=== PATIENT | male | born 1955 | race Caucasian/White ===

== ENCOUNTER 2020-08-20 15:39 | Emergency (ER) | payer MEDICARE, SELFPAY ==
[2020-08-20 15:50] VITALS: BP 113/63; PULSE 95; RESP 20; TEMP 37; O2SAT 97
--- NOTE | 2020-08-20 16:12 | ECG_ITS ---
Measurements Intervals [place] Rate: 90 P: 38 VA: 135 QRS: 38 QRSD: 89 T: 52 QT: 340 QTc: 416 Interpretive Statements SINUS RHYTHM BASELINE ARTIFACT- II, III, AVF, V2, V4-V6 NORMAL ECG Electronically Signed On 08-20-2020 19:30:42 CDT by Alberto Rosado D.O.
--- NOTE | 2020-08-20 16:17 | ED.GENADULT ---
HPI - General Adult General Chief complaint: Unspecified Stated complaint: groin pain/dizzy Time Seen by Provider: 08/20/20 16:02 Source: patient and RN notes reviewed Mode of arrival: ambulatory Limitations: no limitations History of Present Illness HPI narrative: Patient presents today complaining of a 1 week history of intermittent dizziness episodes. These episodes include blurred vision and heart palpitations. Last episode was this morning and lasted for approximately 2 hours. During these episodes patient denies chest pain, shortness of breath, abdominal pain, nausea or vomiting, numbness or tingling in the extremities. He is currently symptom-free. Denies any alleviating or exacerbating factors. He has tried no interventions at home prior to arrival. History of hypertension and diabetes. Denies any history of HI, CVA. He is also complaining of a 2-month history of left groin pain that is described as a dull ache as well as constant. Believes he may have a hernia. He has not been able to have it evaluated by his PCP. MD complaint: Dizziness Related Data Home Medications Medication Instructions Recorded Confirmed atorvastatin 20 mg DAILY 10/28/19 08/20/20 metformin 500 mg PO BID 10/28/19 08/20/20 quinapril 20 mg DAILY 10/28/19 08/20/20 Allergies Allergy/AdvReac Type Severity Reaction Status Date / Time Penicillins Allergy Unknown UNKNOWN Verified 08/20/20 15:58 Bumble Bee Allergy Unknown SWELL UP Uncoded 06/10/19 19:56 Review of Systems Review of Systems: Narrative: CONSTITUTIONAL: Denies body aches, fever, chills, or sweats. EYES: Denies redness, or discharge.+ Blurred vision ENT: Denies rhinorrhea, congestion, sore throat, or otalgia. CARDIOVASCULAR: Denies chest pain, or edema.+ Palpitations RESPIRATORY: Denies cough or dyspnea. GASTROINTESTINAL: Denies abdominal pain, nausea, vomiting, or diarrhea. GENITOURINARY: Denies dysuria or hematuria. SKIN: Denies rash, itching, or wounds. MUSCULOSKELETAL: Denies back pain, joint pain, or myalgia.+ Groin pain NEUROLOGIC: Denies headache, numbness, tingling, or weakness.+ Dizziness PSYCH: Denies depression or anxiety. [facility] Past Medical History Medical History (Updated 08/20/20 @ 16:32 by Edda Cullen, LEELEE, ) Diabetes Hyperlipidemia Hypertension Social History Social History Gender identity (if verbalized by the patient): Male Comments At time of signature, I have reviewed and agree with nursing past medical, surgical, social and family history unless otherwise noted. Please see nursing chart for further information. There is no relevant family history pertinent to the presenting complaint Exam Narrative: Exam Narrative: GENERAL: Well-appearing, well-nourished, and in no acute distress. HEAD: Normocephalic, atraumatic. EYES: EOMI. PERRL. No nystagmus. No redness or drainage. Conjunctivae normal. ENT: Mucous membranes pink and moist. NECK: Normal AROM. Supple. CHEST: No respiratory distress. Clear to auscultation. HEART: Regular rate. No murmur appreciated. Normal peripheral pulses. ABDOMEN: Soft, nontender, nondistended, normal active bowel sounds. MUSCULOSKELETAL: No bony tenderness. EXTREMITIES: Normal range of motion. No edema. Left groin lymph node tenderness without swelling. SKIN: Warm, dry, no rash. Capillary refill normal. Normal skin turgor. Color normal. NEURO: No focal deficits. Alert and oriented x3. Gait steady. Foot push and pulls equal and strong. Hand industrial energy engineer equal and strong. PSYCH: Normal affect. No signs of depression or anxiety. Course Vital Signs Vital signs: Vital Signs Temperature 98.6 F 08/20/20 15:50 Pulse Rate 95 08/20/20 15:50 Respiratory Rate 20 08/20/20 15:50 Blood Pressure 113/63 08/20/20 15:50 Pulse Oximetry 97 08/20/20 15:50 Temperature 98.6 F 08/20/20 15:50 Pulse Rate 95 08/20/20 15:50 Respiratory Rate 20 1
== END 2020-08-20 16:31 | disposition short-term general hospital (02) ==
PROVIDERS: Emergency Provider Nurse Practitioner; PCP Family Medicine
DX: R42 Dizziness and giddiness (principal); I49.3 Ventricular premature depolarization; E11.9 Type 2 diabetes mellitus without complications; E78.5 Hyperlipidemia, unspecified; I10 Essential (primary) hypertension
CPT/HCPCS: 93005; 99213; G0463

== ENCOUNTER 2020-08-20 17:00 | Emergency (ER) | payer MEDICARE, SELFPAY ==
--- NOTE | ~2020-08-20 | CT_ITS ---
EXAMINATION: CT abdomen pelvis w con EXAM DATE: 08/20/2020 18:39 INDICATION: LLQ/inguinal pain . TECHNIQUE: Spiral CT of the abdomen and pelvis was performed following intravenous injection of 100 m L Omnipaque 350. Axial, coronal and sagittal images were reviewed. The dose-length product (DLP) fo r this examination was 543.48 mGy-cm. The exposure was tailored according to patient size (auto mA e xposure control), and iterative reconstruction (ASIR) was used as additional dose reduction technique . Comparison is made to prior examination from 06/10/2019. FINDINGS: There is 2.3 cm right liver lobe cyst, several other smaller cysts. Flash filling subcentim eter hemangioma at the liver dome. There is a 1.7 cm thrombosed or nearly thrombosed aneurysm at the chrissy hepatis, probably of the common hepatic artery. The spleen, adrenal glands and pancreas are oth erwise unremarkable. Gallbladder is unremarkable. No biliary obstruction. Portal and splenic veins are patent. Kidneys enhance symmetrically. There is no hydronephrosis. There is a 7 mm stone in le ft inferior calyces, 2 mm right superior calyceal stone. The prostate is unremarkable. Small left in guinal fat-containing hernia. The bladder is unremarkable. There is no retroperitoneal or pelvic ly mphadenopathy. There is mild scattered arteriosclerotic disease. The appendix is normal. There is mild to moderate scattered colonic diverticulosis. There is no kalpesh cent inflammatory change to suggest diverticulitis. The stomach and small bowel are unremarkable. Th ere is expected amount of colonic stool. No free intraperitoneal gas. The heart is normal in size . There are no pericardial or pleural effusions. The lung bases are unremarkable. There are no ost eoblastic or osteolytic lesions identified. IMPRESSION: 1. No acute intra-abdominal findings. 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 3. Scattered colonic diverticulosis. 4. Small left inguinal hernia. Reviewed, dictated and finalized at location A.
--- NOTE | 2020-08-20 17:02 | ECG_ITS ---
Measurements Intervals [place] Rate: 91 P: 44 [place]: 141 QRS: 52 QRSD: 85 T: 52 QT: 337 QTc: 415 Interpretive Statements SINUS RHYTHM FREQUENT VENTRICULAR PREMATURE COMPLEXES ABNORMAL ECG Electronically Signed On 08-21-2020 8:29:31 CDT by Alberto Rosado D.O.
[2020-08-20 17:04] VITALS: BP 137/79; PULSE 91; RESP 19; TEMP 36.8; O2SAT 96
--- NOTE | 2020-08-20 17:21 | ED.DIZZY ---
HPI - Dizziness General Chief Complaint: Dizziness Stated Complaint: DIZZINESS, PALPITATIONS Time Seen by Provider: 08/20/20 17:04 History of Present Illness HPI Narrative: Patient is a 65-year-old male who presents ER with complaint of dizziness. Reports it happens intermittently. Last about 30 minutes. Will feel unsteady. Happens when turning his head to the right or with positional changes. No sinus congestion or ringing in the ear. No focal weakness or numbness in arm or leg. Denies chest pain/shortness of breath. Has not found any alleviating factors other than just rest. He reports he was originally being seen at an urgent care for left inguinal pain which has been ongoing. Associate with some testicular discomfort. Worse when he bears down to urinate or stool. No deformity that he is noted. Related Data Home Medications Medication Instructions Recorded Confirmed atorvastatin 20 mg DAILY 10/28/19 08/20/20 metformin 500 mg PO BID 10/28/19 08/20/20 quinapril 20 mg DAILY 10/28/19 08/20/20 Allergies Allergy/AdvReac Type Severity Reaction Status Date / Time Penicillins Allergy Unknown UNKNOWN Verified 08/20/20 15:58 Bumble Bee Allergy Unknown SWELL UP Uncoded 06/10/19 19:56 Review of Systems Review of Systems: All systems reviewed & are unremarkable except as noted in HPI and below Constitutional: Constitutional: Denies chills, Denies fever(s) and Denies weakness ENT: Reports dizziness, Denies nasal congestion and Denies sore throat Cardiovascular: Cardiovascular: Denies chest pain and Denies radiating jaw, neck or arm pain Gastrointestinal: Gastrointestinal: Denies abdominal pain, Denies diarrhea, Denies nausea and Denies vomiting Comments: Left inguinal discomfort Genitourinary: Genitourinary: Denies dysuria, Reports testicular pain and Denies urinary frequency Neurologic: Denies focal weakness and Denies numbness PMFSH Past Medical History Medical History (Updated 08/20/20 @ 19:27 by Toñito Sow MD) Diabetes Hyperlipidemia Hypertension Social History Social History Gender identity (if verbalized by the patient): Male Exam Narrative: Exam Narrative: GENERAL: Well-appearing, well-nourished, and in no acute distress. HEAD: Normocephalic, atraumatic. EYES: PERRL and EOMI. ENT: TMs normal bilaterally. CHEST: Clear to auscultation. No respiratory distress. HEART: Regular rate and rhythm. Normal peripheral pulses. ABDOMEN: Soft, mild left lower quadrant tenderness without guarding, nondistended, mild left inguinal tenderness.. EXTREMITIES: Normal range of motion. No edema. SKIN: Warm, dry, no rash. NEURO: Alert and oriented x3. Course Course Emergency Course: Patient informed of results. No dizziness was here. Did receive meclizine. Discussed elevation in white blood cell count. Recommend follow-up with PCP for further evaluation. Patient does have increased number of lymphocytes this could be specialty sales representative of developing CLL. Also may just be incidental. Patient verbalized understanding. Discussed return precautions. Vital Signs Vital signs: Vital Signs Temperature 98.2 F 08/20/20 17:04 Pulse Rate 91 08/20/20 17:04 Respiratory Rate 19 08/20/20 17:04 Blood Pressure 137/79 08/20/20 17:04 Pulse Oximetry 96 08/20/20 17:04 Temperature 98.2 F 08/20/20 17:04 Pulse Rate 85 08/20/20 18:47 Respiratory Rate 17 08/20/20 18:47 Blood Pressure 116/75 08/20/20 18:47 Pulse Oximetry 96 08/20/20 18:47 MDM - Dizziness Lab Data Result diagrams: 08/20/20 17:22 08/20/20 17:22 Labs: Lab Results 08/20/20 08/20/20 08/20/20 Range/Units 17:22 17:22 17:52 WBC 17.1 H (4.5-10.0) K/mm3 RBC 4.28 L (4.6-6.20) M/mm3 Hgb 13.7 L (14.0-18.0) g/dL Hct 39.5 L (42.0-52.0) % MCV 92.3 (80-100) fl MCH 32.0 (26-34) pg MCHC 34.7 (32-36) g/dl RD
[2020-08-20 17:27] LABS: Hematocrit 39.5 % (42.0-52.0); Hemoglobin 13.7 g/dL (14.0-18.0); Mean Corpuscular HGB Conc 34.7 g/dl (32-36); Mean Corpuscular Volume 92.3 fl (80-100); Mean Platelet Volume 9.5 fl (7.4-10.4); Platelet Count Result 243 k/mm3 (150-375); Red Blood Count 4.28 M/mm3 (4.6-6.20); Red Cell Distribution Width 14.3 % (11.5-14.5); White Blood Count 17.1 K/mm3 (4.5-10.0)
[2020-08-20 17:29] VITALS: BP 115/70; BP 128/74; PULSE 84; PULSE 91
[2020-08-20] MEDS: MECLIZINE HCL 25 MG TABLET PO (17:29)
[2020-08-20 17:30] VITALS: BP 105/58; PULSE 93
[2020-08-20 17:40] LABS: Anion Gap 8 mmol/L (8-16); Blood Urea Nitrogen 27 mg/dL (9-20); Calcium 8.6 mg/dL (8.4-10.2); Carbon Dioxide 22 mmol/L (22-30); Chloride 104 mmol/L (98-107); Estimated CRCL calculation 47 ml/min; Estimated Glomerular Filt Rate 47; Glucose 100 mg/dL (75-110); Potassium 4.6 mmol/L (3.4-5.0); Sodium 134 mmol/L (137-145)
[2020-08-20 17:45] VITALS: BP 108/75; PULSE 87; RESP 15; O2SAT 99
[2020-08-20 17:54] LABS: Band Neutrophils Percent 6 % (0-6); Lymphocytes Absolute Manual 6.49 K/mm3 (1.1-4.5); Monocytes Absolute Manual 0.34 K/mm3 (0.1-0.90); Monocytes Percent Manual 2 % (3-9); Neutrophils Absolute Manual 10.26 K/mm3 (1.3-6.7); Neutrophils Percent Manual 54 % (46-73); Platelet Estimate Adequate (Adequate); Total Cells Counted 100
[2020-08-20 18:01] LABS: Add Urine Microscopic? YES; Appearance Urine Clear (Clear); Bilirubin Urine Negative (Negative); Blood Urine 2+ (Negative); Color Urine Yellow (Yellow); Glucose Urine UA Negative (Negative); Ketones Urine Negative (Negative); Leukocyte Esterase Ur Negative LEU/UL (Negative); Mucus Urine Few /lpf; Nitrate Urine Negative (Negative); Protein Urine Negative (Negative); Specific Grav Ur 1.024 (1.001-1.035); Urobilinogen Urine Negative mg/dL (<2.0); WBC Urine 0-3 /hpf
[2020-08-20 18:47] VITALS: BP 116/75; PULSE 85; RESP 17; O2SAT 96
--- NOTE | 2020-08-20 19:06 | PC.NURSE ---
REPORT TO FIONA KLEIN AT THIS TIME, HE HAS ASSUMED PT CARE.
[2020-08-20 19:23] VITALS: BP 134/84; PULSE 83; RESP 18; O2SAT 96
== END 2020-08-20 19:39 | disposition home or self-care (01) ==
PROVIDERS: Emergency Provider Emergency Medicine; PCP Family Medicine
DX: H81.10 Benign paroxysmal vertigo, unspecified ear (principal); K40.90 Unilateral inguinal hernia, without obstruction or gangrene, not specified as recurrent; D72.829 Elevated white blood cell count, unspecified; E11.9 Type 2 diabetes mellitus without complications; E78.5 Hyperlipidemia, unspecified; I10 Essential (primary) hypertension; K57.90 Diverticulosis of intestine, part unspecified, without perforation or abscess without bleeding; I49.3 Ventricular premature depolarization; I72.8 Aneurysm of other specified arteries
CPT/HCPCS: 36415; 74177; 80048; 81001; 85025; 93005; 99284; A9270; Q9967

== ENCOUNTER 2020-09-12 11:03 | Outpatient (CLI) | payer MEDICARE, SELFPAY ==
--- NOTE | ~2020-09-12 | XR_ITS ---
XR abdomen/kub 1V DATE: 09/12/2020 11:27 INDICATION: Calcium kidney stone TECHNIQUE: AP projection, 2 views COMPARISON: 08/20/2020 CT abdomen pelvis FINDINGS: An approximately 4 x 7 mm calcified calculus of lower pole of left kidney is again noted. Pinpoint nonobstructing mid to upper right renal calculus noted on 08/20/2020 CT chest abdomen pelvis examination is not readily evident radiographically. No visceromegaly is evident. The psoas shadows are intact. The bowel gas pattern is unremarkable, wit hout evidence of obstruction. IMPRESSION: Left lower pole nephrolithiasis, stable since Probable radiographically occult right renal calculus Reviewed, dictated and finalized at Location A. Reviewed, dictated and finalized at location A. [employer]
== END 2020-09-12 11:04 | disposition home or self-care (01) ==
LOC: ANHIMG 11:08
PROVIDERS: PCP Family Medicine; Visit Provider Urology
DX: N20.0 Calculus of kidney (principal)
CPT/HCPCS: 74018

== ENCOUNTER 2020-09-20 11:23 | Outpatient (CLI) | payer MEDICARE, SELFPAY | END 2020-09-20 11:24 | disposition home or self-care (01) | PROVIDERS: PCP Family Medicine; Visit Provider Surgery | DX: K40.90 Unilateral inguinal hernia, without obstruction or gangrene, not specified as recurrent (principal); Z01.818 Encounter for other preprocedural examination | CPT/HCPCS: 36415; 86850; 86900; 86901 ==

== ENCOUNTER 2020-09-28 01:35 | Outpatient (CLI) | payer MEDICARE, SELFPAY ==
[2020-09-28 21:25] LABS: SARS-CoV-2 RNA PCR Negative
== END 2020-09-28 01:36 | disposition home or self-care (01) ==
LOC: ANHCOVIDDT 01:35
PROVIDERS: PCP Family Medicine; Visit Provider Surgery
DX: Z01.812 Encounter for preprocedural laboratory examination (principal); Z20.828 Contact with and (suspected) exposure to other viral communicable diseases
CPT/HCPCS: 87635; C9803; U0003

== ENCOUNTER 2020-10-01 01:47 | Day surgery (SDC) | payer MEDICARE, SELFPAY ==
[2020-09-19 12:36] VITALS: BMI 27.6
[2020-10-01] VITALS (10 sets, daily range): BP systolic 112–119; BP diastolic 69–76; PULSE 71–87; RESP 12–18; TEMP 36.6; O2SAT 94–99; BMI 26.9
[2020-10-01] MEDS: LACTATED RINGERS 1,000 ML 30 ML IV CONT ×3 (06:47→10:59)
[2020-10-01] MEDS: KETOROLAC 15 MG/ML VIAL (*BKC) IV PUSH (06:48)
[2020-10-01] MEDS: ACETAMINOPHEN 500 MG TABLET 1000 MG PO (06:48)
--- NOTE | 2020-10-01 06:53 | WPDANESEPPF ---
Anes - Initial Pre Proc Eval Procedure: Operation Date: 10/01/20 07:30 Proposed Procedures p Robotic Assisted Left Inguinal Hernia Repair With Mesh - Shauna Martínez MD Date/Time: 10/01/20 06:53 Surgeon: Shauna Martínez MD Pre Op Diagnosis: Left Inguinal Hernia Patient Data Age: 65 Gender: M Height: 5 ft 7 in Weight: 78.1 kg Last Vital Signs Temp 36.6 C 10/01/20 06:34 Pulse 83 10/01/20 06:34 Resp 18 10/01/20 06:34 BP 112/71 10/01/20 06:34 Pulse Ox 98 10/01/20 06:34 Allergies Allergy/AdvReac Type Severity Reaction Status Date / Time Penicillins Allergy Unknown UNKNOWN Verified 10/01/20 06:17 Bumble Bee Allergy Unknown SWELL UP Uncoded 10/01/20 06:17 Home Medications Medication Instructions Recorded Confirmed Type atorvastatin 20 mg DAILY 10/28/19 10/01/20 History metformin 500 mg PO BID 10/28/19 10/01/20 History quinapril 20 mg DAILY 10/28/19 10/01/20 History icosapent ethyl [Vascepa] 1 g PO BID 09/19/20 10/01/20 History Laboratory Tests 10/01/20 06:46 WBC Pending Patient hx anesthesia problems: none Family hx anesthesia problems: none PMFSH Past Medical History Medical History Diabetes Hyperlipidemia Hypertension Surgical History Surgical History History of prostate surgery Family History Family History Father Diabetes mellitus Grandparent Diabetes mellitus Social History Social History Smoking status: Current every day smoker Tobacco type: cigars Additional smoking assessment comments: FOR 20 YEARS Alcohol intake: current Alcohol use details: 1 PER MONTH Living arrangements: with family Additional occupation/education comments: disabled Gender identity (if verbalized by the patient): Male Anes - Eval Final PreProcedure Day of Procedure 10/01/20 06:53 Patient weight: overweight Heart: regular rate and rhythm Lungs: decreased breath sounds Airway: Mallampati scale class II Neurological: alert and oriented Last oral intake: >/= 8 hours ASA classification: III Emergent: no Anesthetic plan: proceed Anesthesia type and monitoring: general ETT and standard monitoring Informed Consent: The patient's anesthetic plan and its attendant risks and benefits were discussed with the patient/family/POA. Questions were solicited and answers provided to the satisfaction of the patient/family/POA.
[2020-10-01 06:55] LABS: White Blood Count 7.4 K/mm3 (4.5-10.0)
[2020-10-01 07:00] LABS: Glucose Point of Care 104 (65-105)
--- NOTE | 2020-10-01 07:17 | WPDHPUPDATE1 ---
History and Physical Update Update Date/Time: 10/01/20 07:17 History and Physical has been reviewed, including an updated exam of the patient. There are NO changes in the patient's condition. Risks, benefits, and alternatives have been discussed and questions answered. Patient agrees to proceed with procedure.
[2020-10-01] MEDS: ceFAZolin 2 GM/D5W 50 ML 2 GM/50 ML BAG IVPB (07:25)
--- NOTE | 2020-10-01 09:27 | P.OP_ITS ---
Procedure Note - Detailed Date of procedure: 10/01/20 Pre-op diagnosis: Left Inguinal Hernia Post-op diagnosis: same Procedure performed: robotic assisted left inguinal hernia repair Description of procedure: Patient was brought into the operating room and placed in the supine position. After adequate induction of general anesthesia, the patient was prepped and draped in normal sterile fashion. A time-out was then done to verify the patient's identity, as well as the procedure being performed. Began by making a 8 mm incision in the supraumbilical region, a Veress needle was then placed into the peritoneal cavity. CO2 gas was then insufflated and after adequate pneumoperitoneum was achieved, the Veress needle was removed. I then placed an 8 mm trocar through this incision. I then placed the endoscope through this trocar site and under direct visualization placed 2 further 8 mm ports in the right and left mid abdomen. The [employer] robot was then docked to the 3 trocar sites. I then scrubbed out and went to the robotic console. Upon examining the pelvis, it was noted that the patient had a left inguinal hernia. I began by making a preperitoneal flap approximately 6 cm superior to the defect. This flap was carried medially past the umbilical ligaments in laterally to the transversalis. It then began dissection of my medial compartment taking this down to the pubic tubercle. I then began the lateral dissection taking this down to the transversalis fascia. Once these compartments were achieved, I began dissection around the cord structures. It was noted at this point that the patient had a indirect hernia. Patient also had a large lipoma the cord. Using careful dissection, was able to reduce the lipoma cord as well separate the indirect hernia off the cord structures. Once this was adequately done, I went ahead and placed a 15 x 10 piece of [employer] Receptionist mesh into the abdominal cavity. The mesh was carefully positioned, centering the center of the mesh over the indirect defect. Once this was done, I was very satisfied with our repair. I then closed the peritoneal flap with a running 2.0 V Lock suture. The abdomen was then desufflated, and all ports were removed. All incisions were then closed with the 4.0 monocryl suture. Dermabond was placed on each wound. The patient tolerated the procedure well, was extubated in the operating room postoperatively, and will now be transferred to the rec overy room in stable condition. Implants: 15 x 10 progrip mesh Anesthesia: GETA Surgeon: Shauna Martínez MD Estimated blood loss (mL): 5 Drains: No Packing: No Pathology: none sent Complications: No immediate complications Condition: stable Disposition: PACU Findings: indirect LIH
[2020-10-01] MEDS: fentaNYL CITRATE INJ (*CRX) 100 MCG/2 ML VIAL 25 MCG IV PUSH ×8 (09:32→09:46)
[2020-10-01] MEDS: HYDROmorphone HCL INJ (*CRX) 1 MG/ML SYR 0.5 MG IV PUSH ×6 (09:53→10:18)
--- NOTE | 2020-10-01 12:31 | SUR.PHASEII ---
1119 URINATED WITHOUT ISSUE.
== END 2020-10-01 11:53 | disposition home or self-care (01) ==
PROVIDERS: PCP Family Medicine; Visit Provider Surgery
PROC: 8E0Y4CZ Robotic Assisted Procedure of Lower Extremity, Percutaneous Endoscopic Approach (ICD-10-PCS; CPT 49650; principal; 2020-10-01 07:30)
DX: K40.90 Unilateral inguinal hernia, without obstruction or gangrene, not specified as recurrent (principal); I10 Essential (primary) hypertension; E11.9 Type 2 diabetes mellitus without complications; E78.5 Hyperlipidemia, unspecified; Z79.84 Long term (current) use of oral hypoglycemic drugs; F17.290 Nicotine dependence, other tobacco product, uncomplicated
CPT/HCPCS: 49650; S2900; 36415; 85048; 86850; 86900; 86901; 87635; A9270; C1781; C9803; J0690; J1100; J1170; J1885; J2250; J2370; J2405; J2704; J2710; J3010; J7030; J7120; U0003

== ENCOUNTER 2021-08-08 08:04 | Outpatient (CLI) | payer MEDICARE, SELFPAY ==
--- NOTE | 2021-08-08 08:41 | ECG_ITS ---
Measurements Intervals [place] Rate: 69 P: 36 [place]: 165 QRS: 45 QRSD: 93 T: 30 QT: 391 QTc: 420 Interpretive Statements SINUS RHYTHM NORMAL ECG Electronically Signed On 08-08-2021 9:05:03 CDT by Alberto Rosado D.O.
[2021-08-08 08:58] LABS: Anion Gap 6 mmol/L (8-16); Blood Urea Nitrogen 15 mg/dL (9-20); Calcium 8.7 mg/dL (8.4-10.2); Carbon Dioxide 27 mmol/L (22-30); Chloride 107 mmol/L (98-107); Estimated Glomerular Filt Rate > 60; Glucose 97 mg/dL (65-110); Potassium 4.4 mmol/L (3.4-5.0); Sodium 140 mmol/L (137-145)
== END 2021-08-08 08:05 | disposition home or self-care (01) ==
LOC: ANHLAB 08:16
PROVIDERS: PCP Family Medicine
DX: E11.9 Type 2 diabetes mellitus without complications (principal); I10 Essential (primary) hypertension
CPT/HCPCS: 36415; 80048; 93005

== ENCOUNTER 2022-07-30 10:44 | Outpatient (CLI) | payer MEDICARE, SELFPAY ==
--- NOTE | ~2022-07-30 | CT_ITS ---
EXAMINATION: CT abdomen pelvis wo con DATE: 07/30/2022 11:07 INDICATION: Lung bases are unremarkable. Heart size normal. TECHNIQUE: Computed tomography (CT) of the abdomen and pelvis was performed without intravenous contr ast. The dose-length product was 222.86 mGy-cm. Automated exposure control and iterative reconstructi on technique were employed. COMPARISON: CT dated 08/20/2020 FINDINGS: There is a focal radiopaque density in the proximal small bowel corresponding to abnormalit y seen on KUB. No evidence for right renal stone or gallstone. There is a 2.5 cm liver cyst posterior segment of the right hepatic lobe. The spleen, pancreas, adrenal glands are unremarkable. Right kidn ey within normal limits. There is a nonobstructing left renal stone measuring 8 x 5 mm. No ureteral s tones or hydronephrosis. Bowel gas pattern is nonobstructive. Mild osteoarthritis of the hips. Mild l umbar spondylosis. No significant vascular abnormality. No lymphadenopathy. No free air or free fluid . IMPRESSION: 1. Nonobstructing left nephrolithiasis. Reviewed, dictated and finalized at location B.
--- NOTE | ~2022-07-30 | XR_ITS ---
XR abdomen/kub 1V 07/30/2022 11:01 Indication: Right ureteral stone. Procedure: KUB Comparison: 09/12/2020 Findings: There is a stone in the lower pole of the left kidney. There is calcification overlying the right kidney which may represent a renal or gallstone. No definite stones identified in the expected course of the ureters. Bowel gas pattern nonobstructive. No acute osseous abnormality. Impression: 1: Left nephrolithiasis. Possible right nephrolithiasis measuring 1.7 cm versus cholelithiasis. Reviewed, dictated and finalized at location B. Impression: 1: Left nephrolithiasis. Possible right nephrolithiasis measuring 1.7 cm versus cholelithiasis.
== END 2022-07-30 10:45 | disposition home or self-care (01) ==
PROVIDERS: PCP Family Medicine; Visit Provider Urology
DX: N20.0 Calculus of kidney (principal); K76.89 Other specified diseases of liver; M47.816 Spondylosis without myelopathy or radiculopathy, lumbar region; M16.0 Bilateral primary osteoarthritis of hip
CPT/HCPCS: 74018; 74176

== ENCOUNTER 2022-08-07 07:53 | Outpatient (CLI) | payer MEDICARE, SELFPAY ==
--- NOTE | 2022-08-07 08:05 | ECG_ITS ---
Measurements Intervals [place] Rate: 78 P: 30 ID: 150 QRS: 24 QRSD: 94 T: 46 QT: 380 QTc: 434 Interpretive Statements SINUS RHYTHM WITH FREQUENT SUPRAVENTRICULAR PREMATURE COMPLEXES BASELINE ARTIFACT PRESENT ABNORMAL RHYTHM ECG COMPARED TO ECG 08/08/2021 08:49:32 NO SIGNIFICANT CHANGES Electronically Signed On 08-07-2022 17:21:50 CDT by Kelsie Arndt M.D.
[2022-08-07 08:39] LABS: Anion Gap 8 mmol/L (8-16); Blood Urea Nitrogen 16 mg/dL (9-20); Calcium 8.8 mg/dL (8.4-10.2); Carbon Dioxide 25 mmol/L (22-30); Chloride 101 mmol/L (98-107); Estimated Glomerular Filt Rate > 60; Glucose 123 mg/dL (65-110); Sodium 134 mmol/L (137-145)
[2022-08-07 08:46] LABS: INR 1.1; Prothrombin Time 13.4 Seconds (11.1-14.7)
[2022-08-07 08:49] LABS: Partial Thromboplastin Time 32.8 SECONDS (22.3-36.8)
== END 2022-08-07 07:54 | disposition home or self-care (01) ==
LOC: ANHSURGERY 07:57
PROVIDERS: Anesthesiology; PCP Family Medicine; Visit Provider Urology
DX: Z01.818 Encounter for other preprocedural examination (principal); N20.0 Calculus of kidney; E11.9 Type 2 diabetes mellitus without complications; I49.3 Ventricular premature depolarization; Z51.81 Encounter for therapeutic drug level monitoring; Z79.899 Other long term (current) drug therapy
CPT/HCPCS: 36415; 80048; 85610; 85730; 87086; 93005

== ENCOUNTER 2022-08-15 01:52 | Day surgery (SDC) | payer MEDICARE, SELFPAY ==
[2022-08-04 09:11] VITALS: BMI 26.1
--- NOTE | 2022-08-04 09:35 | PC.NURSE ---
Report to the Outpatient Waiting Room, entrance under the green pavilion located off [facility], at time __7:30AM on date _08/15/22 . OR Time: _9:30AM . Time changes happen often and if your time is changed the preop area will call you the afternoon before. - You and your visitor will be asked to self-screen and do not enter if you have any COVID symptoms. - Only one visitor and NO children visitors are allowed at this time. - The patient visitor is requested to leave or wait in car when not with patient due to restrictions. - A mask is required within the hospital. Patients may have clear liquids (water, carbonated beverages, clear teas, apple juice) until 3 hours prior to surgery with a maximum of 20 ounces. - No food from midnight until time of surgery Take the following medications with a SIP of water the morning of surgery: ____NONE Medications to discontinue per physician __HOLD ALL VITAMINS/SUPPLEMENTS 3 DAYS PRE-OP PER ANESTHESIA Date to take last dose___08/11/22 Please no make-up, nail sami, hairspray, perfume, deodorant, or body powder the day of surgery. No jewelry (including any body piercings) or valuables the day of surgery, leave them at home. Please take a shower or bath the night before, or the morning of, surgery with an antibacterial soap. Wear comfortable, loose fitting clothing. Children are encouraged to wear pajamas. - Jewelry must be removed prior to entering the operating room. Rings and piercings that are not removed may be cut off. - The hospital will not accept responsibility for valuables. - Please leave all valuables, including medications, at home the day of surgery. If you are going home after surgery, a licensed shag truck driver must drive you home. - NO public transportation without another adult. - We recommend that an adult stay with you for 24 hours following discharge. - We also recommend that you do not drive, make important decision, drink alcoholic beverages, or take any drugs that were not prescribed by your health care provider for at least 24 hours after your discharge time. Follow any additional instructions given to you from your surgeon. If you or anyone in your household have experienced Covid symptoms in the past week, please notify your surgeon or the nurse liaison at the phone number below for possible testing. Telephone instructions given to ___PATIENT and asked if any additional questions and then verbalized understanding. Patient advised to call surgeon office or pre surgery nurse liaison [phone] if any additional questions.
[2022-08-15] VITALS (7 sets, daily range): BP systolic 119–149; BP diastolic 57–100; PULSE 73–107; RESP 14–20; TEMP 36.5–36.7; O2SAT 96–100
--- NOTE | ~2022-08-15 | XR_ITS ---
EXAMINATION: XR abdomen/kub 1V DATE: 08/15/2022 07:51 INDICATION: Left kidney stone. TECHNIQUE: A supine view of the abdomen on 2 radiographs was obtained. COMPARISON: CT abdomen and pelvis 07/30/2022 FINDINGS: There are no dilated loops of bowel. There is an 8 mm stone in left kidney. IMPRESSION: 1. Left kidney stone. Reviewed, dictated and finalized at location A. IMPRESSION: 1. Left kidney stone.
--- NOTE | 2022-08-15 08:06 | SUR.PREOP ---
Patient arrived wearing sling shot arm immobilizer on left. Says rotator cuff surgery was 6 weeks ago.
--- NOTE | 2022-08-15 08:14 | WPDHPUPDATE1 ---
History and Physical Update Update Date/Time: 08/15/22 08:14 History and Physical has been reviewed, including an updated exam of the patient. There are NO changes in the patient's condition. Risks, benefits, and alternatives have been discussed and questions answered. Patient agrees to proceed with procedure. Proceed with left renal ESWL
[2022-08-15] MEDS: LACTATED RINGERS 1,000 ML 30 ML IV CONT (08:37)
--- NOTE | 2022-08-15 08:38 | WPDANESEPPF ---
Anes - Initial Pre Proc Eval Procedure: Operation Date: 08/15/22 09:30 Proposed Procedures p Left Extracorporeal Shock Wave Lithotripsy - Guille Quiñones MD Date/Time: 08/15/22 08:38 Surgeon: Guille Quiñones MD Pre Op Diagnosis: left renal stones Patient Data Age: 67 Gender: M Height: 1.73 m Weight: 77.9 kg Last Vital Signs Temp 36.5 C 08/15/22 08:05 Pulse 73 08/15/22 08:05 Resp 16 08/15/22 08:05 BP 119/72 08/15/22 08:05 Pulse Ox 96 08/15/22 08:05 O2 Del Method Room Air 08/15/22 08:05 Allergies Allergy/AdvReac Type Severity Reaction Status Date / Time Penicillins Allergy Unknown UNKNOWN Verified 08/15/22 07:57 Home Medications Medication Instructions Recorded Confirmed Type atorvastatin 20 mg tablet 20 mg PO DAILY 10/28/19 08/15/22 History quinapril 20 mg tablet 20 mg PO DAILY 10/28/19 08/15/22 History multivitamin 1 tablet PO DAILY 08/04/22 08/15/22 History omega-3 fatty acids-vitamin E 1 cap PO BID 08/04/22 08/15/22 History 1,000 mg capsule Patient hx anesthesia problems: none Family hx anesthesia problems: none Results Review: All pre-operative results and documents have been reviewed as part of the pre-operative evaluation. [facility] Past Medical History Medical History Diabetes Hyperlipidemia Hypertension Seizure disorder Surgical History Surgical History History of inguinal hernia repair 10/01/20 robotic assisted left inguinal hernia repair with progrip mesh History of prostate surgery Family History Family History Father Diabetes mellitus Grandparent Diabetes mellitus Social History Social History Smoking status: Current every day smoker Tobacco type: cigars Additional smoking assessment comments: FOR 20 YEARS Alcohol intake: current Alcohol use details: 1 PER MONTH Substance use: never Living arrangements: with family Additional living arrangements comments: DAUGHTER Additional occupation/education comments: disabled Gender identity (if verbalized by the patient): Male Spiritual care concerns: No Anes - Eval Final PreProcedure Day of Procedure 08/15/22 08:38 Patient weight: overweight Heart: regular rate and rhythm Lungs: decreased breath sounds Airway: Mallampati scale class II Neurological: alert and oriented Last oral intake: >/= 8 hours ASA classification: III Emergent: no Anesthetic plan: proceed Anesthesia type and monitoring: general LMA and standard monitoring Results Review: All pre-operative results and documents have been reviewed as part of the pre-operative evaluation. Informed Consent: The patient's anesthetic plan and its attendant risks and benefits were discussed with the patient/family/POA. Questions were solicited and answers provided to the satisfaction of the patient/family/POA.
[2022-08-15] MEDS: ceFAZolin 2 GM/D5W 50 ML 2 GM/50 ML BAG IVPB (09:36)
--- NOTE | 2022-08-15 10:29 | W.PM.PROC2 ---
Procedure Note - Detailed Date of Procedure 08/15/22 Pre-op Diagnosis left renal stone Post-op Diagnosis Same Procedure Performed ESWL left renal calculus Surgeon Guille Quiñones MD Anesthesia General Description of Procedure Patient is taken the operative suite correctly identified. Once anesthesia was obtained was placed in supine position the stone was localized in both planes. It was noted that the patient had a little bit of a rib me a with the initiation of lithotripsy. We thus gated him. We gave 2500 shocks and tolerated procedure well without complications. There appeared to be good fragmentation stone. Patient is taken recovery stable condition. He will follow-up in 7-10 days with KUB. Drains No Packing No Pathology None sent Complications No immediate complications Condition Stable Disposition PACU
== END 2022-08-15 11:37 | disposition home or self-care (01) ==
PROVIDERS: PCP Family Medicine; Visit Provider Urology
PROC: (CPT 50590; principal; 2022-08-15 09:30)
DX: N20.0 Calculus of kidney (principal); E11.9 Type 2 diabetes mellitus without complications; E78.5 Hyperlipidemia, unspecified; I10 Essential (primary) hypertension; G40.909 Epilepsy, unspecified, not intractable, without status epilepticus; F17.290 Nicotine dependence, other tobacco product, uncomplicated
CPT/HCPCS: 50590; 36415; 74018; 80048; 85610; 85730; 87086; 93005; J0690; J1100; J2405; J2704; J3010; J7120

== ENCOUNTER 2022-08-16 08:46 | Emergency (ER) | payer MEDICARE, SELFPAY ==
[2022-08-16] VITALS (10 sets, daily range): BP systolic 136–177; BP diastolic 79–95; PULSE 74–88; RESP 18; TEMP 36.7; O2SAT 93–98
--- NOTE | ~2022-08-16 | CT_ITS ---
EXAMINATION: CT abdomen pelvis wo con DATE: 08/16/2022 09:55 INDICATION: Left lower quadrant abdominal pain. TECHNIQUE: Computed tomography (CT) of the abdomen and pelvis was performed without intravenous contr ast. Automated exposure control and iterative reconstruction technique were employed. The dose-length product was 312.25 mGy-cm. COMPARISON: CT abdomen and pelvis 07/30/22 FINDINGS: The visualized portions of the lung bases demonstrate mild atelectasis. No pleural effusion . The heart size is normal. There are coronary artery calcifications. No pericardial effusion. There is a 2.7 cm cyst in the liver. The gallbladder, spleen, pancreas, adrenal glands, and right kidney ar e normal. There is left perinephric fat stranding. There are approximately 6 stones in left kidney me asuring up to 4 mm. There is mild left hydronephrosis and hydroureter. There is a 3 mm stone in dista l left ureter. There is diverticulosis of the colon without evidence of diverticulitis. The appendix is normal. There are no dilated loops of bowel. There are no pathologically enlarged lymph nodes. The re is no free intraperitoneal fluid. There is mild thoracolumbar spondylosis. IMPRESSION: 1. 3 mm stone in distal left ureter with mild left hydronephrosis and hydroureter. 2. Nonobstructing left kidney stones. Reviewed, dictated and finalized at location A. IMPRESSION: 1. 3 mm stone in distal left ureter with mild left hydronephrosis and hydrouret er. 2. Nonobstructing left kidney stones.
--- NOTE | 2022-08-16 09:15 | ED.GENADULT ---
HPI - General Adult General Chief complaint: Urogenital-Male Stated complaint: post on complications Time Seen by Provider: 08/16/22 08:48 History of Present Illness HPI narrative: 67-year-old male with history of diabetes, hypertension, ureteral calculi presenting the emergency department for evaluation of worsening left lower quadrant pain. Patient had lithotripsy done on 08/[address] Quiñones and states that he had been improving but had worsening pain this morning. Patient describes intense left lower quadrant pain with associated nausea and vomiting. Patient did take some Zofran and Tylenol for pain control but states at this point his pain is uncontrolled. Patient denies any associated fevers. The procedure note prefers to lithotripsy with 2500 shocks and that the patient tolerated the procedure well without complications. There appeared to be good fragmentation of the stone. Follow up in was scheduled for 7 to 10 days. Related Data Home Medications Medication Instructions Recorded Confirmed atorvastatin 20 mg tablet 20 mg PO DAILY 10/28/19 08/15/22 quinapril 20 mg tablet 20 mg PO DAILY 10/28/19 08/15/22 multivitamin 1 tablet PO DAILY 08/04/22 08/15/22 omega-3 fatty acids-vitamin E 1 cap PO BID 08/04/22 08/15/22 1,000 mg capsule Allergies Allergy/AdvReac Type Severity Reaction Status Date / Time Penicillins Allergy Unknown UNKNOWN Verified 08/16/22 09:36 Review of Systems Review of Systems: CONSTITUTIONAL: Denies fever, chills, or sweats. EYES: Denies visual changes, redness, or discharge. ENT: Denies rhinorrhea, congestion, sore throat, or otalgia. CARDIOVASCULAR: Denies chest pain, palpitations, or edema. RESPIRATORY: Denies cough or dyspnea. GASTROINTESTINAL: Left lower quadrant pain GENITOURINARY: Denies dysuria or hematuria. SKIN: Denies rash or itching. MUSCULOSKELETAL: Denies back pain, joint pain, or myalgia. NEUROLOGIC: Denies headache, numbness, or weakness. [facility] Past Medical History Medical History Diabetes Hyperlipidemia Hypertension Seizure disorder Surgical History Surgical History History of inguinal hernia repair 10/01/20 robotic assisted left inguinal hernia repair with progrip mesh History of prostate surgery Family History Family History Father Diabetes mellitus Grandparent Diabetes mellitus Social History Social History Smoking status: Current every day smoker Tobacco type: cigars Additional smoking assessment comments: 1 CIGAR/DAY CURRENTLY Alcohol intake: current Alcohol use details: 1 PER MONTH Substance use: never Additional living arrangements comments: DAUGHTER Additional occupation/education comments: disabled Gender identity (if verbalized by the patient): Male Spiritual care concerns: No Exam Narrative: APPEARANCE: Well appearing, no pain, no distress, well-nourished. HEAD: normocephalic, atraumatic. EYES: PERRLA/EOMI, conjunctivae clear. NOSE: Normal no drainage NECK: Supple. No adenopathy, no masses. RESPIRATORY: Airway patent, respirations nonlabored. Clear to auscultation bilaterally, no rales, rhonchi, wheezing. CARDIOVASCULAR: Regular rate and rhythm without murmurs rubs or gallops. ABDOMINAL: Left lower quadrant tenderness to palpation MUSCULOSKELETAL: Moves all extremities. Strength/ROM intact, No edema, No calf tenderness. NEURO: Alert. Cranial nerves II through XII intact. Grossly intact Course Course Emergency Course: Patient does have a leukocytosis of 22. Patient is afebrile. UA shows no significant evidence of infection. Patient is not currently taking any steroids. Case was discussed with Dr. Quiñones and he was comfortable with the plan for discharge to home with antibiotics and Flomax
[2022-08-16] MEDS: HYDROmorphone HCL INJ (*CRX) 1 MG/ML SYR 0.5 MG IV PUSH (09:27)
[2022-08-16] MEDS: ONDANSETRON INJ 4 MG/2 ML VIAL IV PUSH (09:28)
[2022-08-16 09:36] LABS: Basophils Absolute Auto 0.1 K/mm3 (0.0-0.1); Basophils Percent Auto 0.4 % (0.2-1.2); Eosinophils Absolute Auto 0.2 K/mm3 (0-0.3); Eosinophils Percent Auto 0.8 % (0-4.4); Hematocrit 38.9 % (42.0-52.0); Hemoglobin 12.9 g/dL (14.0-18.0); Immature Granulocyte Absolute 0.26 K/mm3 (0.00-0.031); Immature Granulocyte Percent A 1.1 % (0-0.5); Lymphocytes Absolute Auto 1.58 K/mm3 (0.9-3.2); Lymphocytes Percent Auto 6.9 % (18.3-44.2); Mean Corpuscular HGB Conc 33.2 g/dl (32-36); Mean Corpuscular Hemoglobin 31.3 pg (26-34); Mean Corpuscular Volume 94.4 fl (80-100); Mean Platelet Volume 8.8 fl (7.4-10.4); Monocytes Absolute Auto 1.5 K/mm3 (0.1-0.6); Monocytes Percent Auto 6.6 % (2.6-8.5); Neutrophils Absolute Auto 19.2 K/mm3 (1.3-6.7); Neutrophils Percent Auto 84.2 % (45.5-73.1); Platelet Count Result 406 k/mm3 (150-375); Red Blood Count 4.12 M/mm3 (4.6-6.20); Red Cell Distribution Width 12.8 % (11.5-14.5); White Blood Count 22.8 K/mm3 (4.5-10.0)
[2022-08-16 09:47] LABS: Alanine Aminotransferase 20 U/L (6-50); Albumin Level 4.2 g/dL (3.5-5.1); Alkaline Phosphatase 70 U/L (38-126); Anion Gap 9 mmol/L (8-16); Aspartate Amino Transferase 26 U/L (17-59); Bilirubin,Total 0.2 mg/dL (0.2-1.3); Blood Urea Nitrogen 20 mg/dL (9-20); Calcium 8.8 mg/dL (8.4-10.2); Carbon Dioxide 24 mmol/L (22-30); Chloride 103 mmol/L (98-107); Estimated CRCL calculation 42 ml/min; Estimated Glomerular Filt Rate 47; Glucose 141 mg/dL (65-110); Potassium 3.9 mmol/L (3.4-5.0); Sodium 136 mmol/L (137-145)
[2022-08-16 10:25] LABS: Add Urine Microscopic? YES; Appearance Urine Cloudy (Clear); Bacteria Urine Trace /hpf; Bilirubin Urine Negative (Negative); Blood Urine 3+ (Negative); Budding Yeast Urine Present /hpf; Color Urine Yellow (Yellow); Glucose Urine UA Negative (Negative); Ketones Urine Negative (Negative); Leukocyte Esterase Ur Negative LEU/UL (Negative); Nitrate Urine Negative (Negative); Protein Urine 1+ mg/dL (Negative); RBC Urine >75 /hpf (0-2); Specific Grav Ur 1.023 (1.001-1.035); Urobilinogen Urine Negative mg/dL (<2.0)
[2022-08-16] MEDS: KETOROLAC 15 MG/ML VIAL (*BKC) IV PUSH (11:12)
[2022-08-16] MEDS: TAMSULOSIN HCL 0.4 MG CAPSULE PO (11:12)
== END 2022-08-16 11:53 | disposition home or self-care (01) ==
PROVIDERS: Emergency Provider Emergency Medicine; PCP Family Medicine
DX: N13.2 Hydronephrosis with renal and ureteral calculous obstruction (principal); I10 Essential (primary) hypertension; E78.5 Hyperlipidemia, unspecified; E11.9 Type 2 diabetes mellitus without complications; G40.909 Epilepsy, unspecified, not intractable, without status epilepticus; F17.290 Nicotine dependence, other tobacco product, uncomplicated
CPT/HCPCS: 36415; 74176; 80053; 81001; 85025; 87086; 96365; 96375; 99284; A9270; J0696; J1170; J1885; J2405

== ENCOUNTER 2022-08-17 21:14 | Observation (INO) | payer MEDICARE, SELFPAY ==
--- NOTE | ~2022-08-17 | XR_ITS ---
EXAMINATION: XR retrograde pyelo w/stent LT DATE: 08/18/2022 16:40 CDT INDICATION: LEFT RETROGRADE URETEROSCOPY STONE EXT STENT . TECHNIQUE: 4 fluoroscopic images and a 63 image cine clip of the left abdomen pelvis were obtained du ring left ureteroscopy, retrograde pyelography, stone extraction, and stent placement performed by th e surgeon. I was not present in the operating room. Fluoroscopy exposure time was 43.5 seconds. DAP 0 .[id number] mGym2. COMPARISON: CT abdomen and pelvis 08/16/2022 FINDINGS: Cannulation of the left ureter followed by contrast injection revealing a mildly dilated left ureter. Multiple candidate filling defects versus air bubbles. Wire access to an upper pole calyx. Stent dep loyment, in good position. IMPRESSION: Fluoroscopic documentation of left ureteroscopy, retrograde pyelography, stone extraction, and stent placement. Please refer to the operative note for complete procedural details . Reviewed, dictated and finalized at location K. IMPRESSION: Fluoroscopic documentation of left ureteroscopy, retrograde pyelography, stone extraction, and stent placement. Please refer to the operative note for complet e procedural details .
--- NOTE | ~2022-08-17 | XR_ITS ---
IMPRESSION: 1. Left urolithiasis with a couple unchanged 3 mm and 5 mm stones in the distal left ureter. EXAMINATION: XR abdomen/kub 1V DATE: 08/18/2022 02:49 INDICATION: Left nephrolithiasis post lithotripsy. TECHNIQUE: A supine view of the abdomen was obtained. COMPARISON: CT dated 08/16/2022 and KUB dated 08/15/2022 FINDINGS: Again seen are a pair of stones measuring 3 mm and 5 mm in the distal left ureter projecting slightly lateral to the margin of the inferior sacrum. A cluster of a few additional small stones projects ov er the lower pole of the left kidney. No dilated loops of bowel to suggest obstruction. Minimal lumba r dextrocurvature with mild spondylosis. IMPRESSION: 1. Left urolithiasis with a couple unchanged 3 mm and 5 mm stones in the distal left ureter. Reviewed, dictated and finalized at location A.
[2022-08-17 22:34] VITALS: BP 133/65; PULSE 98; RESP 18; TEMP 36.9; O2SAT 96
[2022-08-17 23:10] LABS: Basophils Absolute Auto 0.1 K/mm3 (0.0-0.1); Basophils Percent Auto 0.3 % (0.2-1.2); Eosinophils Absolute Auto 0.2 K/mm3 (0-0.3); Eosinophils Percent Auto 1.3 % (0-4.4); Hematocrit 39.2 % (42.0-52.0); Hemoglobin 12.9 g/dL (14.0-18.0); Immature Granulocyte Absolute 0.12 K/mm3 (0.00-0.031); Immature Granulocyte Percent A 0.7 % (0-0.5); Lymphocytes Absolute Auto 2.24 K/mm3 (0.9-3.2); Mean Corpuscular HGB Conc 32.9 g/dl (32-36); Mean Corpuscular Hemoglobin 30.7 pg (26-34); Mean Corpuscular Volume 93.3 fl (80-100); Mean Platelet Volume 8.7 fl (7.4-10.4); Monocytes Absolute Auto 1.5 K/mm3 (0.1-0.6); Monocytes Percent Auto 8.5 % (2.6-8.5); Neutrophils Absolute Auto 13.1 K/mm3 (1.3-6.7); Neutrophils Percent Auto 76.2 % (45.5-73.1); Platelet Count Result 401 k/mm3 (150-375); Red Cell Distribution Width 13.1 % (11.5-14.5); White Blood Count 17.2 K/mm3 (4.5-10.0)
[2022-08-17 23:27] LABS: Alanine Aminotransferase 16 U/L (6-50); Alkaline Phosphatase 71 U/L (38-126); Anion Gap 11 mmol/L (8-16); Aspartate Amino Transferase 25 U/L (17-59); Bilirubin,Total 0.5 mg/dL (0.2-1.3); Blood Urea Nitrogen 23 mg/dL (9-20); Calcium 8.5 mg/dL (8.4-10.2); Carbon Dioxide 21 mmol/L (22-30); Chloride 101 mmol/L (98-107); Estimated CRCL calculation 32 ml/min; Estimated Glomerular Filt Rate 34; Glucose 124 mg/dL (65-110); Potassium 4.4 mmol/L (3.4-5.0); Sodium 133 mmol/L (137-145)
[2022-08-18] VITALS (15 sets, daily range): BP systolic 112–141; BP diastolic 63–85; PULSE 71–91; RESP 10–20; TEMP 36.8–37; O2SAT 93–99; BMI 26.1
--- NOTE | 2022-08-18 02:06 | ED.GENADULT ---
HPI - General Adult General Chief complaint: Urogenital-Male Stated complaint: Surgery Thursday, Kidney Stones, Seen x2 Time Seen by Provider: 08/18/22 01:57 History of Present Illness HPI narrative: Patient is a 67-year-old male presenting with abdominal pain. Patient states that he had lithotripsy 2 and half days ago for a left-sided kidney stone. He initially felt better but then yesterday he again developed left lower quadrant pain. He was seen here again and was able to go home with additional pain medicine and antibiotics. Unfortunately, the pain is continued and now is also in his left lower back. States that he has not been to eat or drink anything. No vomiting. No fevers, chest pain, shortness of breath, cough, dysuria, diarrhea. Related Data Home Medications Medication Instructions Recorded Confirmed atorvastatin 20 mg tablet 20 mg PO DAILY 10/28/19 08/18/22 quinapril 20 mg tablet 20 mg PO DAILY 10/28/19 08/18/22 multivitamin 1 tablet PO DAILY 08/04/22 08/18/22 omega-3 fatty acids-vitamin E 1 cap PO BID 08/04/22 08/18/22 1,000 mg capsule Allergies Allergy/AdvReac Type Severity Reaction Status Date / Time Penicillins Allergy Unknown UNKNOWN Verified 08/18/22 15:42 Review of Systems Review of Systems: All systems reviewed & are unremarkable except as noted in HPI and below PMFSH Past Medical History Medical History Diabetes diet controlled Hyperlipidemia Hypertension Nephrolithiasis WAI (obstructive sleep apnea) intolerant of CPAP Seizure disorder one seizure 15-16 years ago (~2005). Surgical History Surgical History H/O cystoscopy H/O decompression of ulnar nerve History of inguinal hernia repair 10/01/20 robotic assisted left inguinal hernia repair with progrip mesh S/P rotator cuff repair with bicep repair 07/2022 Family History Family History Father Diabetes mellitus Lymphoma Grandparent Diabetes mellitus Other Hypertension Social History Social History Years smoked: 20 Smoking status: Current every day smoker Tobacco type: cigars Additional smoking assessment comments: 1-2 cigars daily for 40 years Alcohol intake: current Drinks per week: 1 Alcohol use details: 1 PER MONTH Substance use: never Living arrangements: with family Additional living arrangements comments: DAUGHTER Occupation/Education: retired Additional occupation/education comments: worked in [employer] Gender identity (if verbalized by the patient): Male Spiritual care concerns: No Exam Narrative: GENERAL: Uncomfortable appearing, no acute distress HEAD: Normocephalic, atraumatic. EYES: PERRLA and EOMI. ENT: Nares clear, no rhinorrhea or epistaxis. Mucous membranes moist. NECK: Supple. CHEST: Clear to auscultation. No respiratory distress. HEART: Regular rate and rhythm. No murmur heard. Normal peripheral pulses. ABDOMEN: Soft, mild tenderness LLQ, normal active bowel sounds. EXTREMITIES: Normal range of motion. No edema. SKIN: Warm, dry, no rash. NEURO: No focal deficits. Alert and oriented x3. PSYCH: Normal mood and affect. Course Vital Signs Vital signs: Vital Signs Temperature 98.4 F 08/17/22 22:34 Pulse Rate 98 08/17/22 22:34 Respiratory Rate 18 08/17/22 22:34 Blood Pressure 133/65 08/17/22 22:34 Pulse Oximetry 96 08/17/22 22:34 Oxygen Delivery Room Air 08/17/22 22:34 Temperature 98.3 F 08/19/22 14:00 Pulse Rate 73 08/19/22 14:00 Respiratory Rate 16 08/19/22 14:00 Blood Pressure 106/61 08/19/22 14:00 Pulse Oximetry 96 08/19/22 14:00 Oxygen Delivery Room Air 08/19/22 09:50 Medical Decision Making MDM Narrative Medical decision making narrative: Patient is a 67-year-old male presenting w
[2022-08-18] MEDS: SODIUM CHLORIDE 0.9% IV 1,000 ML 999 ML IV CONT (02:16)
[2022-08-18] MEDS: ONDANSETRON INJ 4 MG/2 ML VIAL IV PUSH (02:17)
[2022-08-18] MEDS: MORPHINE SULFATE (*CRX) 4 MG/ML INJ IV PUSH ×2 (02:17→07:40)
[2022-08-18 03:48] LABS: Add Urine Microscopic? YES; Appearance Urine Clear (Clear); Bilirubin Urine Negative (Negative); Blood Urine 2+ (Negative); Color Urine Straw (Yellow); Glucose Urine UA Negative (Negative); Ketones Urine Negative (Negative); Leukocyte Esterase Ur Negative LEU/UL (Negative); Mucus Urine Rare /lpf; Nitrate Urine Negative (Negative); Protein Urine Negative (Negative); Specific Grav Ur 1.008 (1.001-1.035); Urobilinogen Urine Negative mg/dL (<2.0); WBC Urine 0-3 /hpf
[2022-08-18] MEDS: cefTRIAXone 2 GM in SODIUM CHLORIDE 0.9% IV 100 ML 200 ML IVPB (04:00)
--- NOTE | 2022-08-18 06:52 | PM.IMHP ---
H&P: HPI History of Present Illness Date/Time: 08/18/22 06:52 Chief Complaint: Left lower quadrant and left back pain Narrative: Neil Arteaga is a 67 yo male with type 2 diabetes mellitus, hypertension, hyperlipidemia and prior history of kidney stones in the '90s who presented to the ED for evaluation of worsening LLQ pain and new left flank pain. The patient underwent lithotripsy on 08/15/[address] Quiñones. Procedural report shows he received 2500 shocks with adequate fragmentation of left stone and patient tolerance of the procedure. The patient was discharged home, however, he returned to the ED on 08/16/22 for return of LLQ pain, nausea and vomiting. At that time, he was noted to have WBC 22, creatinine 1.5, BUN 20, and CT abd/pelvis showed 3 mm left, nonobstructing, distal ureteral stone with mild hydronephrosis and hydroureter. Urology was notified and the patient was discharged on tamsulosin 0.4 mg daily and cephalexin 250 mg Q6 hours for 7 days. This morning, the patient returned to the ED with continued LLQ pain and new left lower back pain, as well as poor oral food and water intake. He denied vomiting. He has had associated hot/cold sensations, generalized weakness, burning with urination and urinary urgency. No hematuria. Vitals were temp 98.4F, HR 98, RR 18, BP 133/65, and spO2 96% room air. Lab work was significant for WBC 17.2, sodium 133, BUN 23 and creatinine 2.0. KUB showed unchanged left ureterolithiasis 3 mm and 5 mm to left distal ureter. He was treated with Rocephin 1 gram, 1 liter NS fluids, 4 mg IV morphine and 4 mg IV zofran. Urology was consulted in the ED and the patient was admitted to the medical floor for acute kidney injury and evaluation by Urology for ureterolithiasis. Review of Systems Review of Systems: All systems reviewed & are unremarkable except as noted in HPI and below Constitutional: Constitutional: Reports as per HPI Eyes: Eyes: Reports no additional eye complaints ENT: Reports system reviewed and no additional complaints, except as documented Cardiovascular: Cardiovascular: Reports no additional cardiovascular complaints Respiratory: Respiratory: Reports no additional respiratory complaints Gastrointestinal: Gastrointestinal: Reports as per HPI and Reports no additional gastrointestinal complaints Genitourinary: Genitourinary: Reports no additional male genitourinary complaints and Reports as per HPI Musculoskeletal: Musculoskeletal: Reports no additional musculoskeletal complaints and Reports as per HPI Integumentary/Breasts: Skin/Breast: Reports system reviewed and no additional complaints, except as docu Neurologic: Reports system reviewed and no additional complaints, except as documented Psychiatric: Psychiatric: Reports no additional psychiatric complaints PMF Past Medical History Medical History (Updated 08/18/22 @ 13:26 by Lissette Bonilla APRN) Diabetes diet controlled Hyperlipidemia Hypertension Nephrolithiasis WAI (obstructive sleep apnea) intolerant of CPAP Seizure disorder one seizure 15-16 years ago (~2005). Surgical History Surgical History (Updated 08/18/22 @ 10:17 by Lissette Bonilla APRN) H/O cystoscopy H/O decompression of ulnar nerve History of inguinal hernia repair 10/01/20 robotic assisted left inguinal hernia repair with progrip mesh S/P rotator cuff repair with bicep repair 07/2022 Family History Family History (Updated 08/18/22 @ 10:18 by Lissette Bonilla APRN) Father Diabetes mellitus Lymphoma Grandparent Diabetes mellitus Other Hypertension Social History Social History (Updated 08/18/22 @ 10:18 by Lissette Bonilla APRN) Years smoked: 20 Smoking status: Current every day smoker Tobacco type: cigars Additional smoking assessment comments: 1-2 cigars daily for 40 years Alcohol intake: current Drinks per week: 1 Alcohol use details: 1 PER MONTH Substance use: never Living arrangements: wi
--- NOTE | 2022-08-18 07:48 | WPDURCON ---
Assessment and Plan Assessment and plan (1) Left ureteral stone: Code(s): N20.1 - Calculus of ureter Status: Acute Assessment and Plan: he is NPO. Will strain his urine. I have given him Flomax. I discussed observation and a trial of conservative stone passage versus intervention. He would like intervention if it can be arranged. I will discuss with the OR to see if I can get him on the schedule for late this afternoon for left ureteroscopy and stone extraction. If they are not available will plan for tomorrow. He understands risks of bleeding, infection, damage to the ureter, inability remove the stone. He understands he will have a stent in place he agrees to proceed. Consent will be obtained. He has been marked for surgery (2) Hydronephrosis: Code(s): N13.30 - Unspecified hydronephrosis Status: Acute Assessment and Plan: due to ureteral stone (3) Acute kidney injury: Code(s): N17.9 - Acute kidney failure, unspecified Status: Acute Assessment and Plan: baseline creatinine is around 1.5. Creatinine is 2 currently. He has not been drinking. A combination of hydration and stone Urology Consult Note HPI Date Seen: 08/18/22 Requesting Physician: Pamela Mas DO Primary Care Provider: Sher ArndtMD Consult Narrative Narrative: Solis Arteaga is a 67 year old male With a prior history of nephrolithiasis. He underwent left lithotripsy on Thursday for an 8 mm lower pole stone. He had acute onset left flank pain Thursday morning. He presented the emergency room was diagnosed with a left distal 3 mm stone. He was sent home with pain medications and antibiotics. He returned early this morning with pain refractory to p.o. pain medicine. He is now admitted for further management. He has no nausea or vomiting. He has no gross hematuria. He has no fevers. He has no symptoms of urinary tract infection. he has not been tolerating p.o. well due to pain Review of Systems Review of Systems: All systems reviewed & are unremarkable except as noted in HPI and below PMFSH Past Medical History Medical History Diabetes Hyperlipidemia Hypertension Seizure disorder Surgical History Surgical History History of inguinal hernia repair 10/01/20 robotic assisted left inguinal hernia repair with progrip mesh History of prostate surgery Family History Family History Father Diabetes mellitus Grandparent Diabetes mellitus Social History Social History Smoking status: Current every day smoker Tobacco type: cigars Additional smoking assessment comments: 1 CIGAR/DAY CURRENTLY Alcohol intake: current Alcohol use details: 1 PER MONTH Substance use: never Additional living arrangements comments: DAUGHTER Additional occupation/education comments: disabled Gender identity (if verbalized by the patient): Male Spiritual care concerns: No Meds Home Medications and Allergies Home Medications Medication Instructions Recorded Confirmed Type atorvastatin 20 mg tablet 20 mg PO DAILY 10/28/19 08/15/22 History quinapril 20 mg tablet 20 mg PO DAILY 10/28/19 08/15/22 History multivitamin 1 tablet PO DAILY 08/04/22 08/15/22 History omega-3 fatty acids-vitamin E 1 cap PO BID 08/04/22 08/15/22 History 1,000 mg capsule cephalexin 250 mg capsule 250 mg PO Q6H 7 days #28 caps 08/16/22 Rx hydrocodone 5 mg-acetaminophen 325 1 tablet PO Q6H PRN pain #14 tabs 08/16/22 Rx mg tablet tamsulosin 0.4 mg capsule (Flomax) 0.4 mg PO DAILY #20 caps 08/16/22 Rx Allergies Allergy/AdvReac Type Severity Reaction Status Date / Time Penicillins Allergy Unknown UNKNOWN Verified 08/18/22 02:04 Vital Signs Vital Signs - 24
--- NOTE | 2022-08-18 07:59 | ADMGEN ---
This patient, Solis Arteaga, was admitted to [facility] Surg Room 301-01. Patient/family oriented to hospital policies and general routines including ID bracelet, bed and alarms, visiting hours, pain management, procedures, bathroom and other care routines, personal items, smoking policy, room service/diet, and visiting hours. Information on how to activate the Rapid Response Team has been discussed. Patient/Family are encouraged to report perceived risks to care and to ask questions if they do not understand what they are told or what they should do.
[2022-08-18] MEDS: SODIUM CHLORIDE 0.9% IV 1,000 ML 150 ML IV CONT ×2 (08:11→14:01)
[2022-08-18] MEDS: KETOROLAC 30 MG/ML VIAL (*BKC) IV PUSH (09:12)
[2022-08-18] MEDS: TAMSULOSIN HCL 0.4 MG CAPSULE PO (14:01)
--- NOTE | 2022-08-18 15:57 | WPDHPUPDATE1 ---
History and Physical Update Update Date/Time: 08/18/22 15:57 History and Physical has been reviewed, including an updated exam of the patient. There are NO changes in the patient's condition. Risks, benefits, and alternatives have been discussed and questions answered. Patient agrees to proceed with procedure.
--- NOTE | 2022-08-18 16:16 | WPDANESEPPF ---
Anes - Initial Pre Proc Eval Procedure: Operation Date: 08/18/22 16:00 Proposed Procedures p Left Ureteroscopy; Stone Extraction, Possible Stent Placement(Left) - Kristian Salvador MD Date/Time: 08/18/22 16:16 Surgeon: Pamela Mas DO Pre Op Diagnosis: Nephrolithiasis Patient Data Age: 67 Gender: M Height: 1.73 m Weight: 78 kg Last Vital Signs Temp 37.0 C 08/18/22 15:06 Pulse 71 08/18/22 15:06 Resp 16 08/18/22 15:06 BP 112/68 08/18/22 15:06 Pulse Ox 96 08/18/22 15:06 O2 Del Method Room Air 08/18/22 15:06 Allergies Allergy/AdvReac Type Severity Reaction Status Date / Time Penicillins Allergy Unknown UNKNOWN Verified 08/18/22 15:42 Home Medications Medication Instructions Recorded Confirmed Type atorvastatin 20 mg tablet 20 mg PO DAILY 10/28/19 08/18/22 History quinapril 20 mg tablet 20 mg PO DAILY 10/28/19 08/18/22 History multivitamin 1 tablet PO DAILY 08/04/22 08/18/22 History omega-3 fatty acids-vitamin E 1 cap PO BID 08/04/22 08/18/22 History 1,000 mg capsule cephalexin 250 mg capsule 250 mg PO Q6H 7 days #28 caps 08/16/22 08/18/22 Rx hydrocodone 5 mg-acetaminophen 325 1 tablet PO Q6H PRN pain #14 tabs 08/16/22 08/18/22 Rx mg tablet tamsulosin 0.4 mg capsule (Flomax) 0.4 mg PO DAILY #20 caps 08/16/22 08/18/22 Rx Laboratory Tests 08/17/22 08/17/22 08/18/22 22:59 22:59 03:30 WBC 17.2 K/mm3 H K/mm3 (4.5-10.0) RBC 4.20 M/mm3 L M/mm3 (4.6-6.20) Hgb 12.9 g/dL L g/dL (14.0-18.0) Hct 39.2 % L % (42.0-52.0) MCV 93.3 fl fl (80-100) MCH 30.7 pg pg (26-34) MCHC 32.9 g/dl g/dl (32-36) RDW 13.1 % % (11.5-14.5) Plt Count 401 k/mm3 H k/mm3 (150-375) MPV 8.7 fl fl (7.4-10.4) Immature Gran % (Auto) 0.7 % H % (0-0.5) Neut % (Auto) 76.2 % H % (45.5-73.1) Lymph % (Auto) 13.0 % L % (18.3-44.2) Saline % (Auto) 8.5 % % (2.6-8.5) Eos % (Auto) 1.3 % % (0-4.4) Baso % (Auto) 0.3 % % (0.2-1.2) Lymph # (Auto) 2.24 K/mm3 K/mm3 (0.9-3.2) Saline # (Auto) 1.5 K/mm3 H K/mm3 (0.1-0.6) Eos # (Auto) 0.2 K/mm3 K/mm3 (0-0.3) Baso # (Auto) 0.1 K/mm3 K/mm3 (0.0-0.1) Abs Immat Gran (auto) 0.12 K/mm3 H K/mm3 (0.00-0.031) Absolute Neuts (auto) 13.1 K/mm3 H K/mm3 (1.3-6.7) Absolute Nucleated RBC 0.0 K/mm3 K/mm3 (0.0-0.012) Nucleated RBC % 0.0 % % (0.0-0.2) Sodium 133 mmol/L L mmol/L (137-145) Potassium 4.4 mmol/L mmol/L (3.4-5.0) Chloride 101 mmol/L mmol/L (98-107) Carbon Dioxide 21 mmol/L L mmol/L (22-30) Anion Gap 11 mmol/L mmol/L (8-16) BUN 23 mg/dL H mg/dL (9-20) Creatinine 2.00 mg/dL H mg/dL (0.7-1.3) Estim Creat Clear Calc 32 ml/min ml/min Estimated GFR 34 L (59 - ) Glucose 124 mg/dL H mg/dL (65-110) Calcium 8.5 mg/dL mg/dL (8.4-10.2) Total Bilirubin 0.5 mg/dL mg/dL (0.2-1.3) AST 25 U/L U/L (17-59) ALT 16 U/L U/L (6-50) Alkaline Phosphatase 71 U/L U/L (38-126) Total Protein 7.0 g/dL g/dL (6.3-8.2) Albumin 4.0 g/dL g/dL (3.5-5.1) Urine Color Straw (Yellow) Urine Appearance Clear (Clear) Urine pH 5.0 (5.0-9.0) Ur Specific Omar 1.008 (1.001-1.035) Urine Protein Negative mg/dL mg/dL (Negative) Urine Glucose (UA) Negative mg/dL mg/dL (Negative) Urine Ketones Negative mg/dL mg/dL (Negative) Ur Blood (Man) 2+ H (Negative) Urine Nitrate Negative (Negative) Urine Bilirubin Negative (Negative) Urine Urobilinogen Negative mg/dL mg/dL (<2.0) Leukocyte Esterase Rfl Negative JONATHON/UL JONATHON/
[2022-08-18] MEDS: LACTATED RINGERS 1,000 ML 30 ML IV CONT (16:25)
--- NOTE | 2022-08-18 17:05 | W.PM.PROC2 ---
Procedure Note - Detailed Date of Procedure 08/18/22 Pre-op Diagnosis left ureteral stone Post-op Diagnosis Same Procedure Performed Cystoscopy, left retrograde pyelogram, left ureteroscopy, stone extraction, stent placement Surgeon Kristian Salvador MD Indications This is a gentleman status post lithotripsy on Thursday. He re-presented to the ER with a distal ureteral stone. He is here today for correction. He understands risks of bleeding, infection, damage to urinary tract, inability remove the stones. He agrees to proceed Findings Multiple small stones the left distal ureter. All are extracted Description of Procedure Was correctly identified. Informed consent obtained. From the operating room. He was given MAC anesthesia. He was placed in dorsal lithotomy position. All pressure points were padded. He was prepped and draped sterile fashion. He was already on appropriate antibiotics. Time-out performed. Cystoscopy revealed enlarged prostate and trabeculated bladder. No stones in the bladder. No tumors the the bladder. I did a gentle retrograde pyelogram on the left. Stone fragments were seen as filling defects in distal ureter with proximal hydronephrosis. A guidewire was placed in the kidney. The ureter was dilated the 810 dilator. I then performed ureteroscopy. Several stones were encountered in the distal ureter. They were extracted separately. I sent 1 for analysis. I re-examined the ureter there is no additional stone fragments. There is no damage to the ureter. The guidewire staying in the kidney. I then placed a 4.8 variable length stent. Proximal coiled in the upper pole kidney. Distal coil the bladder. The bladder is drained. He was awakened transferred to PACU in stable condition. Implants 4.8 variable length stent Estimated Blood Loss 0 Drains Yes (Stent) Pathology Yes (Stone fragment) Complications No immediate complications Condition Stable Disposition PACU
--- NOTE | 2022-08-18 18:23 | SUR.PHASEI ---
1823: Floor RN has to call back for report.
[2022-08-18] MEDS: CEPHALEXIN 250 MG CAPSULE PO (21:25)
[2022-08-18] MEDS: PHENAZOPYRIDINE HCL 100 MG TABLET 200 MG PO (21:25)
[2022-08-19] MEDS: CEPHALEXIN 250 MG CAPSULE PO ×3 (02:45→13:18)
[2022-08-19 06:00] VITALS: BP 140/71; PULSE 72; RESP 16; TEMP 36.7; O2SAT 97
[2022-08-19 06:17] LABS: Basophils Absolute Auto 0.1 K/mm3 (0.0-0.1); Basophils Percent Auto 0.7 % (0.2-1.2); Eosinophils Absolute Auto 0.4 K/mm3 (0-0.3); Eosinophils Percent Auto 4.3 % (0-4.4); Hematocrit 34.1 % (42.0-52.0); Hemoglobin 11.3 g/dL (14.0-18.0); Immature Granulocyte Absolute 0.04 K/mm3 (0.00-0.031); Immature Granulocyte Percent A 0.5 % (0-0.5); Lymphocytes Absolute Auto 2.27 K/mm3 (0.9-3.2); Lymphocytes Percent Auto 26.3 % (18.3-44.2); Mean Corpuscular HGB Conc 33.1 g/dl (32-36); Mean Corpuscular Hemoglobin 31.4 pg (26-34); Mean Corpuscular Volume 94.7 fl (80-100); Mean Platelet Volume 9.2 fl (7.4-10.4); Monocytes Absolute Auto 0.7 K/mm3 (0.1-0.6); Monocytes Percent Auto 8.6 % (2.6-8.5); Neutrophils Absolute Auto 5.1 K/mm3 (1.3-6.7); Neutrophils Percent Auto 59.6 % (45.5-73.1); Platelet Count Result 321 k/mm3 (150-375); Red Cell Distribution Width 12.8 % (11.5-14.5); White Blood Count 8.6 K/mm3 (4.5-10.0)
[2022-08-19 06:37] LABS: Anion Gap 10 mmol/L (8-16); Blood Urea Nitrogen 23 mg/dL (9-20); Calcium 8.4 mg/dL (8.4-10.2); Carbon Dioxide 23 mmol/L (22-30); Chloride 104 mmol/L (98-107); Estimated CRCL calculation 40 ml/min; Estimated Glomerular Filt Rate 43; Glucose 112 mg/dL (65-110); Potassium 3.9 mmol/L (3.4-5.0); Sodium 137 mmol/L (137-145)
[2022-08-19] MEDS: PHENAZOPYRIDINE HCL 100 MG TABLET 200 MG PO ×2 (07:42→13:17)
[2022-08-19] MEDS: TAMSULOSIN HCL 0.4 MG CAPSULE PO (09:55)
[2022-08-19] MEDS: ATORVASTATIN 20 MG TABLET PO (09:55)
[2022-08-19] MEDS: lisinopriL 20 MG TABLET PO (09:55)
--- NOTE | 2022-08-19 10:30 | P.PNAN_ITS ---
Anes - Prog Note Post-Op Date/Time: 08/19/22 09:09 Cardiovascular status: normal Respiratory status: normal Airway patency: baseline Mental status: baseline Post-Op hydration status: normal Vital Signs: Last Vital Signs Temp 98.1 F 08/19/22 06:00 Pulse 72 08/19/22 06:00 Resp 16 08/19/22 06:00 BP 140/71 08/19/22 06:00 Pulse Ox 97 08/19/22 06:00 O2 Del Method Room Air 08/18/22 20:00 Pain Score (VAS): 0 I/O: Intake & Output 08/18/22 08/19/22 08/19/22 23:59 07:59 15:59 Intake Total 250 600 120 Output Total 175 250 Balance 75 350 120 Laboratory Tests 08/19/22 05:41 08/19/22 05:41 08/19/22 08/19/22 05:41 05:41 WBC 8.6 RBC 3.60 L Hgb 11.3 L Hct 34.1 L MCV 94.7 MCH 31.4 MCHC 33.1 RDW 12.8 Plt Count 321 MPV 9.2 Immature Gran % (Auto) 0.5 Neut % (Auto) 59.6 Lymph % (Auto) 26.3 [place] % (Auto) 8.6 H Eos % (Auto) 4.3 Baso % (Auto) 0.7 Lymph # (Auto) 2.27 [place] # (Auto) 0.7 H Eos # (Auto) 0.4 H Baso # (Auto) 0.1 Abs Immat Gran (auto) 0.04 H Absolute Neuts (auto) 5.1 Absolute Nucleated RBC 0.0 Nucleated RBC % 0.0 Sodium 137 Potassium 3.9 Chloride 104 Carbon Dioxide 23 Anion Gap 10 BUN 23 H Creatinine 1.60 H Estim Creat Clear Calc 40 Estimated GFR 43 L Glucose 112 H Calcium 8.4 Post-procedural complaints: none Patient Feedback: Patient satisfied with anesthetic care.
[2022-08-19 14:00] VITALS: BP 106/61; PULSE 73; RESP 16; TEMP 36.8; O2SAT 96
--- NOTE | 2022-08-19 15:02 | WPDUROPN2 ---
Progress Note: A&P Assessment and Plan (1) Left ureteral stone: Code(s): N20.1 - Calculus of ureter Status: Acute Assessment and Plan: Ok to discharge home to f/u next week for a stent removal with Dr. Quiñones. (2) Hydronephrosis: Code(s): N13.30 - Unspecified hydronephrosis Status: Acute (3) Ureterolithiasis: Code(s): N20.1 - Calculus of ureter Status: Acute Subjective Subjective Date/Time Seen: 08/19/22 15:02 S/P Cystoscopy, left ureteroscopy with stone extraction, left stent, left retrograde pyelogram. Patient doing very well today, creatinine decreasing, tolerating stent well. He is tolerating diet and activity well. Post Op day: 1 Review of Systems Cardiovascular: Cardiovascular: Denies chest pain Respiratory: Respiratory: Reports no additional respiratory complaints Gastrointestinal: Gastrointestinal: Denies abdominal pain, Denies nausea and Denies vomiting Genitourinary: Genitourinary: Denies hematuria, Denies dysuria, Reports flank pain, Denies urinary frequency, Denies urinary hesitancy and Denies urinary urgency Exam Resp: Effort & Inspection: normal respiratory effort Cardio: Rate: regular rate GI: GI Palp: Yes Soft to palpation and No Tenderness to palpation present (GI) : General: Yes CVA tenderness on the left Extrem: Right lower extremity: no edema Left lower extremity: no edema Objective Data Vital Signs Vital Signs: Vital Signs - 24 hr 08/18/22 15:06 08/18/22 17:05 08/18/22 17:20 Temperature 98.6 F 98.5 F Pulse Rate 71 88 80 Respiratory Rate 16 14 16 Blood Pressure 112/68 113/76 132/79 Pulse Oximetry 96 97 97 Oxygen Delivery Room Air Room Air Room Air 08/18/22 17:35 08/18/22 17:50 08/18/22 18:05 Temperature Pulse Rate 81 76 79 Respiratory Rate 16 10 L 16 Blood Pressure 122/72 127/79 141/85 H Pulse Oximetry 99 97 97 Oxygen Delivery Room Air Room Air Room Air 08/18/22 18:20 08/18/22 18:35 08/18/22 22:00 Temperature 98.6 F Pulse Rate 79 78 74 Respiratory Rate 15 12 18 Blood Pressure 126/74 133/77 124/71 Pulse Oximetry 97 98 98 Oxygen Delivery Room Air Room Air 08/18/22 20:00 08/19/22 06:00 08/19/22 09:50 Temperature 98.1 F Pulse Rate 72 Respiratory Rate 16 Blood Pressure 140/71 Pulse Oximetry 97 Oxygen Delivery Room Air Room Air 08/19/22 14:00 Temperature 98.3 F Pulse Rate 73 Respiratory Rate 16 Blood Pressure 106/61 Pulse Oximetry 96 Oxygen Delivery Intake/Output Intake/Output: Intake & Output 08/16/22 08/17/22 08/18/22 08/19/22 23:59 23:59 23:59 23:59 Intake Total 2350 840 Output Total 175 250 Balance 2175 590 Meds/Results Medications: Active Medications Generic Name Dose Route Start Last Admin Trade Name Freq PRN Reason Stop Dose Admin Hydrocodone Bitart/Acetaminophen 1 tab 08/18/22 18:42 Hydrocodone/Acetaminophen (*Crx) 5-325 Mg Tablet PO Q6H PRN pain 4-6 Atorvastatin Calcium 20 mg 08/19/22 09:00 08/19/22 09:55 Atorvastatin 20 Mg Tablet PO 20 mg DAILY RANDA Administration Cephalexin HCl 250 mg 08/18/22 18:00 08/19/22 13:18 Cephalexin 250 Mg Capsule PO 250 mg Q6H RANDA Administration Hydromorphone HCl 1 mg 08/18/22 08:35 Hydromorphone Hcl Inj (*Crx) 1 Mg/Ml Syr IV PUSH Q3H PRN Pain Rated 7-10 Lisinopril 20 mg 08/19/22 09:00 08/19/22 09:55 Lisinopril 20 Mg Tablet PO 09/18/22 08:59 20 mg DAILY RANDA Administration Ondansetron HCl 4 mg 08/18/22 11:34 Ondansetron Inj 4 Mg/2 Ml Vial IV PUSH Q6H PRN Nausea And Vomiting Oxybutynin Chloride 5 mg 08/18/22 18:42 Oxybutynin Chloride 5 Mg Tablet PO TID PRN Abdominal Cramping Phenazopyridine HCl 200 mg 08/18/22 18:42 08/19/22 13:17 Phenazopyridine Hcl 100 Mg Tablet PO 200 mg TIDWM RANDA Administration Tamsulosin HCl 0.4 mg 08/18/22 09:00 08/19/22 09:55 Tamsulosin Hcl 0.4 Mg Capsule PO 0.4 mg Q
[2022-08-19 15:23] LABS: Anion Gap 10 mmol/L (8-16); Blood Urea Nitrogen 23 mg/dL (9-20); Calcium 8.4 mg/dL (8.4-10.2); Carbon Dioxide 24 mmol/L (22-30); Chloride 104 mmol/L (98-107); Estimated CRCL calculation 45 ml/min; Estimated Glomerular Filt Rate 51; Glucose 119 mg/dL (65-110); Potassium 4.2 mmol/L (3.4-5.0); Sodium 138 mmol/L (137-145)
--- NOTE | 2022-08-19 16:35 | PM.DS ---
DS: Admitting Diagnosis Discharge Date 08/19/2022 1635 Admitting Diagnosis Acute injury on chronic kidney disease Ureterolithiasis Acute UTI DS: Discharge Diagnosis Discharge Diagnosis (1) Acute kidney injury superimposed on chronic kidney disease: Code(s): N17.9 - Acute kidney failure, unspecified; N18.9 - Chronic kidney disease, unspecified Status: Acute Assessment and Plan: Patient presented to the ED for evaluation of poor oral intake, generalized weakness, LLQ and left flank pain. BUN 23, creatinine 2.0, GFR 34. Baseline creatinine 1.1 to 1.2 earlier this month. GFR 47->60. There may be a component of CKD. NS@150 mL/hour 08/19/22 at 1400 Repeat BMP - BUN 23, creatinine 1.4, GFR 51 at discharge. Repeat BMP on 08/22/22. (2) Ureterolithiasis: Code(s): N20.1 - Calculus of ureter Status: Acute Assessment and Plan: s/p Lithotripsy on 08/15/22 for left stone, he presented to the ED x2 with persistent LLQ pain and now left flank pain. KUB shows 3 mm and 5 mm stones in left ureteral junction unchanged from previous. Urology consulted and appreciate recommendations. Underwent stone extraction and stent on 08/18/[address] Salvador Continued tamsulosin 0.4 mg PO daily Strain all urine Discussed increasing oral water intake (3) Acute UTI: Code(s): N39.0 - Urinary tract infection, site not specified Status: Acute Assessment and Plan: Patient presents with left flank pain, WBC 22 on 08/16/22 and patient started on Keflex. Admitted with WBC 17 and reported hot/cold alternating sensations. 08/16/22 urine culture negative. Treated with IV Rocephin 1 gram Q24 hours prior to stone extraction. He was transitioned to oral Keflex per Urology post-procedure and will complete keflex prescription given in ED 08/16/22 Hemodynamically stable and without lower urinary complaints prior at discharge. (4) Hypertension: Qualifiers: Hypertension type: essential hypertension Qualified Code(s): I10 - Essential (primary) hypertension Code(s): I10 - Essential (primary) hypertension Status: Chronic Assessment and Plan: Chronic, stable. Hold Quinapril due to acute kidney injury. Resumed at discharge. (5) Diabetes: Qualifiers: Diabetes mellitus complication status: with hyperglycemia Diabetes mellitus terminal superintendent insulin use: without terminal superintendent use Diabetes mellitus type: type 2 Qualified Code(s): E11.65 - Type 2 diabetes mellitus with hyperglycemia Code(s): E11.9 - Type 2 diabetes mellitus without complications Status: Chronic Assessment and Plan: Diet controlled. Monitor serum glucose on chemistry. Consistent carb diet when able to take PO. Stable. glucose <140 mg/dL. (6) WAI (obstructive sleep apnea): Code(s): G47.33 - Obstructive sleep apnea (adult) (pediatric) Status: Chronic Assessment and Plan: Reports his prior sleep study was approximately 10 years ago and he could not tolerate the face or nasal masks. He has not tried nasal pillows. Educated patient on risks and benefits of adequately treated WAI. Recommend repeat sleep study and trial of new masks/nasal pillows. Monitor respiratory status. Plan DS: Summary Hospital Course Reason for hospitalization: left groin and left flank pain. Hospital Course: Neil Arteaga is a 67 yo male with type 2 diabetes mellitus, hypertension, hyperlipidemia and prior history of kidney stones in the ' who presented to the ED for evaluation of worsening LLQ pain and new left flank pain. The patient underwent lithotripsy on 08/15/[address] Quiñones. Procedural report shows he received 2500 shocks with adequate fragmentation of left stone and patient tolerance of the procedure. The patient was discharged home, however, he returned to the ED on 08/16/22 for return of LLQ pain, nausea and vomiting. At that time, he was noted to have WBC 22, cr
== END 2022-08-19 17:35 | disposition home or self-care (01) ==
LOC: ANHED 08-18 01:57 → ANH3MEDSUR 08-18 04:46
PROVIDERS: Nurse Practitioner Family; Urology; Admitting Provider Internal Medicine; Emergency Provider Emergency Medicine; PCP Family Medicine; Visit Provider Internal Medicine
PROC: (CPT 52352; principal; 2022-08-18 16:00)
DX: N13.2 Hydronephrosis with renal and ureteral calculous obstruction (principal); I12.9 Hypertensive chronic kidney disease with stage 1 through stage 4 chronic kidney disease, or unspecified chronic kidney disease; E11.22 Type 2 diabetes mellitus with diabetic chronic kidney disease; N18.9 Chronic kidney disease, unspecified; N39.0 Urinary tract infection, site not specified; E11.65 Type 2 diabetes mellitus with hyperglycemia; G47.33 Obstructive sleep apnea (adult) (pediatric); E78.5 Hyperlipidemia, unspecified; Z99.89 Dependence on other enabling machines and devices; Z98.890 Other specified postprocedural states; F10.90 Alcohol use, unspecified, uncomplicated; F17.290 Nicotine dependence, other tobacco product, uncomplicated; Z87.442 Personal history of urinary calculi; Z87.898 Personal history of other specified conditions; Z79.891 Long term (current) use of opiate analgesic; Z79.899 Other long term (current) drug therapy; Z83.3 Family history of diabetes mellitus; Z82.49 Family history of ischemic heart disease and other diseases of the circulatory system
CPT/HCPCS: 52344; 52332; 52352; 36415; 74018; 74420; 80048; 80053; 81001; 82365; 85025; 88300; 96361; 96365; 96375; 99285; A9270; C1769; C2617; G0378; J0696; J1885; J2250; J2270; J2405; J2704; J3010; J7030; J7120; Q9966

== ENCOUNTER 2022-10-07 13:41 | Outpatient (CLI) | payer MEDICARE, SELFPAY ==
--- NOTE | ~2022-10-07 | XR_ITS ---
EXAM: XR abdomen/kub 1V DATE: 10/07/2022 13:59 HISTORY: F/U AFTER SURGERY 1 MO AGO LEFT SIDE KIDNEY STONES . COMPARISON: 08/18/2022. FINDINGS: Linear radiopaque foreign body projects over the lower abdomen in one of the views, likely external to the patient. No definite distal ureteral calcification detected. Left lower pole obscured by bowel content, known left lower pole calcifications are much less well seen. Clear lung bases. No rmal bowel gas pattern. No organomegaly. No abnormal abdominal calcification. Lumbar degenerative dis c disease. Bilateral hip osteoarthritis. IMPRESSION: Limited evaluation of what is probably stable left lower pole nephrolithiasis. Reviewed, dictated and finalized at location K. SSELER IMPRESSION: Limited evaluation of what is probably stable left lower pole nephr olithiasis.
== END 2022-10-07 13:42 | disposition home or self-care (01) ==
PROVIDERS: PCP Family Medicine; Visit Provider Urology
DX: N20.0 Calculus of kidney (principal)
CPT/HCPCS: 74018

== ENCOUNTER 2023-05-16 18:41 | Observation (INO) | payer MEDICARE, SELFPAY ==
[2023-05-16] VITALS (8 sets, daily range): BP systolic 114–128; BP diastolic 68–92; PULSE 78–113; RESP 15–20; TEMP 37.2; O2SAT 96–98; BMI 25.0
--- NOTE | ~2023-05-16 | XR_ITS ---
EXAMINATION: XR chest 1V portable DATE: 05/16/2023 19:50 INDICATION: Syncope. TECHNIQUE: A single frontal view of the chest was obtained. COMPARISON: Chest 2 views 04/22/2011 FINDINGS: The chest demonstrates clear lungs without pneumonia, pleural effusion, or pneumothorax. Th e heart size is normal. IMPRESSION: 1. No acute cardiopulmonary disease. Reviewed, dictated and finalized at location E.
--- NOTE | ~2023-05-16 | CT_ITS ---
EXAMINATION: CT brain wo con DATE: 05/16/2023 18:55 INDICATION: Altered mental status. TECHNIQUE: Computed tomography (CT) of the head was performed without intravenous contrast. The mA wa s adjusted according to patient size. Iterative reconstruction technique was employed. The dose-lengt h product was 605.33 mGy-cm. COMPARISON: Head CT 06/28/2010 FINDINGS: There is no intracranial hemorrhage, acute infarction, or abnormal intracranial mass lesion . The ventricles are normal in size. There is mild mucosal thickening in the paranasal sinuses. There is a right mastoid effusion. IMPRESSION: 1. Normal brain. Reviewed, dictated and finalized at location E. IMPRESSION: 1. Normal brain.
--- NOTE | 2023-05-16 19:10 | ECG_ITS ---
Measurements Intervals [place] Rate: 111 P: [place]: 0 QRS: 38 QRSD: 89 T: 30 QT: 328 QTc: 446 Interpretive Statements ATRIAL FIBRILLATION WITH RAPID VENTRICULAR RESPONSE ABNORMAL ECG COMPARED TO ECG 08/07/2022 08:21:03 ATRIAL FIBRILLATION NOW PRESENT Electronically Signed On 05-17-2023 8:01:20 CDT by Alberto Rosado D.O.
[2023-05-16 19:29] LABS: Basophils Absolute Auto 0.1 K/mm3 (0.0-0.1); Basophils Percent Auto 0.7 % (0.2-1.2); Eosinophils Absolute Auto 0.5 K/mm3 (0-0.3); Eosinophils Percent Auto 5.2 % (0-4.4); Hematocrit 42.2 % (42.0-52.0); Hemoglobin 14.3 g/dL (14.0-18.0); Immature Granulocyte Absolute 0.03 K/mm3 (0.00-0.031); Immature Granulocyte Percent A 0.3 % (0-0.5); Lymphocytes Absolute Auto 3.03 K/mm3 (0.9-3.2); Lymphocytes Percent Auto 29.7 % (18.3-44.2); Mean Corpuscular HGB Conc 33.9 g/dl (32-36); Mean Corpuscular Hemoglobin 31.7 pg (26-34); Mean Corpuscular Volume 93.6 fl (80-100); Mean Platelet Volume 9.1 fl (7.4-10.4); Monocytes Absolute Auto 0.7 K/mm3 (0.1-0.6); Monocytes Percent Auto 7.1 % (2.6-8.5); Neutrophils Absolute Auto 5.8 K/mm3 (1.3-6.7); Platelet Count Result 256 k/mm3 (150-375); Red Blood Count 4.51 M/mm3 (4.6-6.20); Red Cell Distribution Width 14.5 % (11.5-14.5); White Blood Count 10.2 K/mm3 (4.5-10.0)
--- NOTE | 2023-05-16 19:35 | ED.GENADULT ---
HPI - General Adult General Chief complaint: Altered Mental Status Stated complaint: AMS - episode of confusion (1610) Time Seen by Provider: 05/16/23 19:17 History of Present Illness HPI narrative: Patient is a 69-year-old gentleman who presents to Emergency Department with a chief complaint of syncopal episode. Patient reports that he went out to go get food was in his vehicle and the next thing he knows he was woke up by his family. Per the family they found him sitting in his vehicle with the windows rolled down unresponsive when the family reviewed his Apple Watch data they noticed that his heart rate was reporting a result in the 150s and another result in the 50s the patient was alert and oriented afterwards and back to his baseline neurological status. The patient currently has no complaints Related Data Home Medications Medication Instructions Recorded Confirmed atorvastatin 20 mg tablet 20 mg PO DAILY 10/28/19 08/18/22 quinapril 20 mg tablet 20 mg PO DAILY 10/28/19 08/18/22 multivitamin 1 tablet PO DAILY 08/04/22 08/18/22 omega-3 fatty acids-vitamin E 1 cap PO BID 08/04/22 08/18/22 1,000 mg capsule Allergies Allergy/AdvReac Type Severity Reaction Status Date / Time Penicillins Allergy Unknown UNKNOWN Verified 08/18/22 15:42 Review of Systems Review of Systems: A 10 system review of systems was completed on the patient and is negative except for what is stated in the HPI. Nursing and ancillary documentation was reviewed. [facility] Past Medical History Medical History Diabetes diet controlled Hyperlipidemia Hypertension Nephrolithiasis WAI (obstructive sleep apnea) intolerant of CPAP Seizure disorder one seizure 15-16 years ago (~2005). Surgical History Surgical History H/O cystoscopy H/O decompression of ulnar nerve History of inguinal hernia repair 10/01/20 robotic assisted left inguinal hernia repair with progrip mesh S/P rotator cuff repair with bicep repair 07/2022 Family History Family History Father Diabetes mellitus Lymphoma Grandparent Diabetes mellitus Other Hypertension Social History Social History Years smoked: 20 Smoking status: Current every day smoker Tobacco type: cigars Additional smoking assessment comments: 1-2 cigars daily for 40 years Alcohol intake: current Drinks per week: 1 Alcohol use details: 1 PER MONTH Substance use: never Living arrangements: with family Additional living arrangements comments: DAUGHTER Occupation/Education: retired Additional occupation/education comments: worked in [employer] Gender identity (if verbalized by the patient): Male Spiritual care concerns: No Exam Narrative: GENERAL: Well-appearing, well-nourished, and in no acute distress. HEAD: Normocephalic, atraumatic. EYES: PERRLA and EOMI. ENT: Nares clear, no rhinorrhea or epistaxis. Mucous membranes moist. NECK: Supple. CHEST: Clear to auscultation. No respiratory distress. HEART: Regular rate and rhythm. No murmur heard. Normal peripheral pulses. ABDOMEN: Soft, nontender, nondistended, normal active bowel sounds. EXTREMITIES: Normal range of motion. No edema. SKIN: Warm, dry, no rash. NEURO: No focal deficits. Alert and oriented x3. PSYCH: Normal mood and affect. Course Course Emergency Course: Differential diagnosis includes seizure, dysrhythmia, syncopal episode EKG shows atrial fibrillation with a rate of [address] elevation or ST depression CT head showed no acute abnormality Laboratory studies were obtained on the patient which showed a CBC showed a white count of 10.2 coags are within normal limits electrolytes showed a BUN of 21 and a creatinine of 1.5 glucose was 1
[2023-05-16 19:41] LABS: Prothrombin Time 13.7 Seconds (11.1-14.7)
[2023-05-16 19:42] LABS: Partial Thromboplastin Time 27.4 SECONDS (22.3-36.8)
[2023-05-16] MEDS: SODIUM CHLORIDE 0.9% IV 1,000 ML 999 ML IV CONT ×2 (19:56→23:47)
[2023-05-16 20:02] LABS: Alanine Aminotransferase 19 U/L (6-50); Albumin Level 4.1 g/dL (3.5-5.1); Alkaline Phosphatase 32 U/L (38-126); Anion Gap 9 mmol/L (8-16); Aspartate Amino Transferase 33 U/L (17-59); Bilirubin,Total 0.6 mg/dL (0.2-1.3); Blood Urea Nitrogen 21 mg/dL (9-20); Calcium 8.9 mg/dL (8.4-10.2); Carbon Dioxide 26 mmol/L (22-30); Chloride 104 mmol/L (98-107); Estimated CRCL calculation 42 ml/min; Estimated Glomerular Filt Rate 47; Glucose 116 mg/dL (65-110); Sodium 139 mmol/L (137-145)
[2023-05-16 20:07] LABS: Magnesium 1.9 mg/dL (1.6-2.3)
[2023-05-16 20:09] LABS: Appearance Urine Clear (Clear); Bacteria Urine None Seen /hpf; Bilirubin Urine Negative (Negative); Blood Urine Trace (Negative); Color Urine Yellow (Yellow); Glucose Urine UA Negative (Negative); Ketones Urine Negative (Negative); Leukocyte Esterase Ur Negative LEU/UL (Negative); Need Manual Microscopic Reviewed; Nitrate Urine Negative (Negative); Non Pathogenic Casts 0-2; Protein Urine Negative (Negative); RBC Urine 0-2 /hpf (0-2); Specific Grav Ur 1.004 (1.001-1.035); Squamous Epithelial Cell Urine None seen /hpf (Few); Urobilinogen Urine 0.2 mg/dL (<2.0); WBC Urine 0-5 /hpf
[2023-05-16 20:10] LABS: Add Urine Microscopic? YES
[2023-05-16 20:17] LABS: Troponin I < 0.012 ng/mL (0.000-0.034)
--- NOTE | 2023-05-16 20:23 | PM.IMHP ---
H&P: HPI History of Present Illness Date/Time: 05/16/23 20:23 Chief Complaint: AMS Narrative: This is a 67 yo male with PMHx significant for HTN, Dislipidemia,seizure disorder,CKD, Tobacco dependence, smokes 1 pack of cigarettes daily. Patient was brought to ED for evaluation, after [place] found unresponsive in is vehicle, according to son who is at bedside providing the history as patient has no recollection of the events.Patient was at a house democrat and was supposed to go get food however was found close to 1 hour later back to the house and unresponsive in his truck, patient was arousable, at the time of my visit is oriented x 3 but can't tell what happened. Has had some lightheadedness, denies chest pain, was recently worked up for CAD had normal results on a stress test a week ago,had event record monitoring for a week which truned out normal, denies any n/v/d no abdominal pain, no cough, no sputum production. Today in ED his apple watch showed a heart rate that fluctuated in between 50-150. Preliminary work up was significant for CT of the head was reported as: EXAMINATION: CT brain wo con DATE: 05/16/2023 18:55 INDICATION: Altered mental status. TECHNIQUE: Computed tomography (CT) of the head was performed without intravenous contrast. The mA was adjusted according to patient size. Iterative reconstruction technique was employed. The dose-length product was 605.33 mGy-cm. COMPARISON: Head CT 06/28/2010 FINDINGS: There is no intracranial hemorrhage, acute infarction, or abnormal intracranial mass lesion. The ventricles are normal in size. There is mild mucosal thickening in the paranasal sinuses. There is a right mastoid effusion. IMPRESSION: 1. Normal brain. EXAMINATION: XR chest 1V portable DATE: 05/16/2023 19:50 INDICATION: Syncope. TECHNIQUE: A single frontal view of the chest was obtained. COMPARISON: Chest 2 views 04/22/2011 FINDINGS: The chest demonstrates clear lungs without pneumonia, pleural effusion, or pneumothorax. The heart size is normal. IMPRESSION: 1. No acute cardiopulmonary disease. Rate 111 ID 0 QRSd 89 QT 328 QTc 446 --[place]-- P QRS 38 T 30 ATRIAL FIBRILLATION WITH RAPID VENTRICULAR RESPONSE NONSPECIFIC T-WAVE ABNORMALITY ABNORMAL RHYTHM ECG COMPARED TO ECG 08/07/2022 08:21:03 ATRIAL FIBRILLATION NOW PRESENT T-WAVE ABNORMALITY NOW PRESENT Review of Systems Review of Systems: altered mental status Constitutional: Constitutional: Denies chills, Denies fatigue, Denies fever(s), Denies malaise and Denies weakness Eyes: Eyes: Denies change in vision ENT: Denies dysphagia, Denies vertigo, Denies dizziness and Denies odynophagia Cardiovascular: Cardiovascular: Denies chest pain, Denies irregular heart rhythm, Denies leg edema, Denies radiating jaw, neck or arm pain, Denies palpitations, Denies dyspnea on exertion, Denies orthopnea and Denies slow heart rate Respiratory: Respiratory: Denies cough and Denies excessive phlegm production Gastrointestinal: Gastrointestinal: Denies abdominal pain, Denies dyspepsia, Denies heartburn, Denies diarrhea, Denies nausea and Denies vomiting Genitourinary: Genitourinary: Denies dysuria and Denies flank pain Musculoskeletal: Musculoskeletal: Denies back pain and Denies myalgias Integumentary/Breasts: Skin/Breast: Denies rash Neurologic: Denies vertigo, Denies dizziness, Denies focal weakness and Denies Sensory deficit (Neuro) Psychiatric: Psychiatric: Reports no additional psychiatric complaints and Reports as per HPI Endocrine: Endocrine: Denies cold intolerance, Denies flushing, Denies heat intolerance, Denies polyphagia, Denies polydipsia and Denies palpitations Hematologic/Lymphatic: Hematologic/Lymphatic: Reports no additional hematologic/lymphatic complaints and Reports as per HPI Allergic/Immunologic: Allergic/Immunologic: Reports no additional allergic/immunologic complaints and Reports as per HPI PMFSH Past Medical History Medical His
--- NOTE | 2023-05-16 22:18 | ADMGEN ---
This patient, Solis Arteaga, was admitted to IMU Room 210-01. Patient/family oriented to hospital policies and general routines including ID bracelet, bed and alarms, visiting hours, pain management, procedures, bathroom and other care routines, personal items, smoking policy, room service/diet, and visiting hours. Information on how to activate the Rapid Response Team has been discussed. Patient/Family are encouraged to report perceived risks to care and to ask questions if they do not understand what they are told or what they should do.
[2023-05-16 23:06] LABS: Troponin I < 0.012 ng/mL (0.000-0.034)
[2023-05-17] VITALS (17 sets, daily range): BP systolic 95–127; BP diastolic 51–66; PULSE 59–73; RESP 14–18; TEMP 36.2–37.2; O2SAT 95–100
[2023-05-17] MEDS: METOPROLOL TARTRATE 12.5 MG TABLET PO ×2 (08:24→20:36)
[2023-05-17] MEDS: APIXABAN 5 MG TABLET PO ×2 (08:24→20:36)
[2023-05-17] MEDS: TAMSULOSIN HCL 0.4 MG CAPSULE PO ×2 (08:24→20:37)
[2023-05-17] MEDS: OMEGA 3 POLYUNSAT FATTY ACIDS 1 GM CAP PO ×2 (08:24→17:26)
[2023-05-17] MEDS: lisinopriL 10 MG TABLET PO (08:24)
[2023-05-17] MEDS: MULTIVITAMINS THERAPEUTIC TAB (*BKC) 1 TABLET PO (08:24)
--- NOTE | 2023-05-17 10:44 | PM.IMPN ---
Progress Note: A&P Assessment and Plan (1) Syncope: Code(s): R55 - Syncope and collapse Status: Acute Assessment and Plan: Patient gives a history of palpitations that are daily. This is likely his atrial fibrillation. Patient had a Holter monitor. May need another Holter set up for possibly loop recorder. Cardiology consult. (2) Atrial fibrillation, new onset: Code(s): I48.91 - Unspecified atrial fibrillation Status: Acute Assessment and Plan: will obtain echocardiogram in a.m. will continue to monitor no prior history of atrial fibrillation (3) CKD (chronic kidney disease): Code(s): N18.9 - Chronic kidney disease, unspecified Status: Acute Assessment and Plan: BUN and creatinine at patient's baseline continue to monitor repeat BMP in a.m. (4) Tobacco dependence: Code(s): F17.200 - Nicotine dependence, unspecified, uncomplicated Status: Acute Assessment and Plan: nicotine patch as needed patient is trying to quit (5) WAI (obstructive sleep apnea): Code(s): G47.33 - Obstructive sleep apnea (adult) (pediatric) Status: Chronic Assessment and Plan: Not using CPAP Subjective Date/time seen: 05/17/23 10:44 Interval history: No complaints Exam Narrative: patient is laying in a stretcher Const: General: cooperative, comfortable, no acute distress, well developed, alert, awake, average body habitus and other ( well-appearing) Nutritional Appearance: average body habitus Orientation/consciousness: patient oriented x3 HENMT: Head: normal to inspection, normocephalic and atraumatic Ears: hearing grossly normal bilaterally Face/Nose/Sinus: normal facial exam Face and sinus: normal facial exam Eyes: General: appearance normal, both eyes and all related structures Pupils: Equal, round and reactive pupils present EOM: EOMs intact bilaterally Neck: Neck: full ROM, no lymphadenopathy and no JVD Thyroid: thyroid normal Lymphatic: no lymphadenopathy noted Resp: Effort & Inspection: normal respiratory effort and able to speak in complete sentences Auscultation: clear to auscultation bilaterally Cardio: Jugular venous distension: no JVD Rate: regular rate Rhythm: regular rhythm Heart sounds: S1 normal heart sound present and S2 normal heart sound present : General: Yes deferred Skin: Rashes: no rashes Wounds: no wounds Neuro: General: patient oriented x3, CN's II-XI intact bilaterally and Unable to assess gait Cranial nerves: Yes CN's II-XII intact bilaterally and Yes Equal, round and reactive pupils present Cognition (Neuro): normal cognition Speech: normal speech Gait exam (Neuro): Unable to assess gait Motor exam (neuro): 5/5 motor strength present throughout Sensory Exam: No Sensory deficit (Neuro) Extrem: General: normal to inspection, full ROM, no joint enlargement and no pedal edema Objective Data Vital Signs Vital Signs: Vital Signs - 24 hr 05/16/23 18:57 05/16/23 19:01 05/16/23 19:47 Temperature Pulse Rate 112 H 113 H 113 H Respiratory Rate 19 16 15 Blood Pressure 128/92 H Pulse Oximetry 98 97 97 Oxygen Delivery Room Air 05/16/23 20:38 05/16/23 21:31 05/16/23 22:11 Temperature 99 F Pulse Rate 95 79 81 Respiratory Rate 15 15 20 Blood Pressure 124/78 120/73 114/68 Pulse Oximetry 98 96 96 Oxygen Delivery 05/16/23 22:00 05/16/23 23:27 05/16/23 23:27 Temperature Pulse Rate 78 82 78 Respiratory Rate 20 Blood Pressure Pulse Oximetry 96 Oxygen Delivery Room Air 05/17/23 02:00 05/17/23 04:05 05/17/23 04:00 Temperature 99.0 F Pulse Rate 62 63 64 Respiratory Rate 18 Blood Pressure 95/51 L Pulse Oximetry 95 Oxygen Delivery 05/17/23 04:00 05/17/23 06:00 05/17/23 08:24 Temperature Pulse Rate 64 64 69 Respiratory Rate 18 Blood Pressure Pulse Oximetry 95 Oxygen Delivery Room Air 05/17/23 08:00 Temperature 97.
[2023-05-17 12:01] LABS: Amphetamine Screen Urine Negative (Negative); Barbiturate Screen Urine Negative (Negative); Benzodiazepines Screen Urine Negative (Negative); Cannabinoid Screen Urine Negative (Negative); Cocaine Screen Urine Negative (Negative); Methadone Screen Urine Negative (Negative); Opiate Screen Urine Negative (Negative); Phencyclidine Screen Urine Negative (Negative)
--- NOTE | 2023-05-17 12:54 | PM.CNCAR ---
Assessment and Plan Assessment and plan (1) Syncope: Code(s): R55 - Syncope and collapse Status: Acute (2) Paroxysmal atrial fibrillation: Code(s): I48.0 - Paroxysmal atrial fibrillation Status: Acute Plan This is a 67-year-old man with paroxysmal atrial fibrillation. He is a good historian and describes having what sounds like lone atrial fibrillation with no structural abnormalities being seen on echo and no evidence of ischemic heart disease on nuclear stress testing. He clearly was in AFib with RVR on arrival and is now back in sinus rhythm spontaneously. I would recommend starting antiarrhythmic therapy in the form of flecainide and Toprol hopes of maintaining sinus rhythm. I also made it clear to the patient that it is rather unusual that this would cause episodes of kentrell syncope unless he has long conversion pauses. It is a very good idea that he has an appointment with Dr. Csataneda at [facility] in the near future. We will start him on flecainide today if he has no arrhythmias I would suggest it will be reasonable to discharge him tomorrow sometime. It would be a good idea for him to stop smoking. Evan Gresham MD [facility] History of Present Illness History of Present Illness Consult date/time: 05/17/23 12:54 Reason For Visit: syncope, new onset atrial fibrillation Narrative: This is a 67-year-old man I am seeing at the request of the hospitalist because of paroxysmal atrial fibrillation and an episode of syncope which occurred yesterday. The history is quite unusual. The patient states that he was having episodes of occasional lightheadedness that began about October of last year. States his primary care physician referred him to see cardiology. He saw Dr. Tijerina in [place] who he states performed a workup including a nuclear stress test and echocardiogram which he told were unremarkable. A Holter monitor demonstrated paroxysmal atrial fibrillation. He was placed on metoprolol and apixaban and was recommended to follow-up in the office. He wanted a 2nd opinion about management of his atrial fib and so he did make an appointment with and currently has an appointment pending with Dr. Castaneda at [facility] in the electrophysiology department. The patient states that he sometimes has episodes of tachycardia and palpitations but this is not a prominent symptom. He was brought to the hospital yesterday after he experienced an episode of apparent loss of consciousness. He was at a family a birthday democrat and he was going to leave a democrat to get something to eat. He got into his vehicle and apparently lost consciousness as I other democrat ago worse for came out to check on him and found him unresponsive in the seat behind the wheel. The window was partially open and they were eventually able to get the truck open and he regained consciousness. He was brought here for evaluation. Upon arrival he was in AFib with RVR and subsequently reverted back to sinus rhythm. He is currently asymptomatic and has no complaints. Review of Systems Constitutional: Constitutional: Reports no additional constitutional complaints Eyes: Eyes: Reports no additional eye complaints ENT: Reports system reviewed and no additional complaints, except as documented Cardiovascular: Cardiovascular: Reports palpitations Respiratory: Respiratory: Reports no additional respiratory complaints Gastrointestinal: Gastrointestinal: Reports no additional gastrointestinal complaints Musculoskeletal: Musculoskeletal: Reports no additional musculoskeletal complaints Integumentary/Breasts: Skin/Breast: Reports system reviewed and no additional complaints, except as docu Neurologic: Reports as per HPI Endocrine: Endocrine: Reports no additional endocrine complaints Hematologic/Lymphatic: Hematologic/Lymphatic: Reports no additional hematologic/lymphatic complaints Allergic/Immunologic: Allergic/Immunologic: Reports no additional allergic/immu
[2023-05-17] MEDS: FLECAINIDE ACETATE 100 MG TABLET PO ×2 (13:30→20:36)
[2023-05-17] MEDS: ATORVASTATIN 20 MG TABLET PO (17:26)
[2023-05-18] VITALS (10 sets, daily range): BP systolic 99–113; BP diastolic 58–83; PULSE 57–70; RESP 14–18; TEMP 36.6–37.2; O2SAT 97–99
[2023-05-18] MEDS: FLECAINIDE ACETATE 100 MG TABLET PO (09:21)
[2023-05-18] MEDS: APIXABAN 5 MG TABLET PO (09:21)
[2023-05-18] MEDS: lisinopriL 10 MG TABLET PO (09:22)
[2023-05-18] MEDS: MULTIVITAMINS THERAPEUTIC TAB (*BKC) 1 TABLET PO (09:22)
[2023-05-18] MEDS: OMEGA 3 POLYUNSAT FATTY ACIDS 1 GM CAP PO (09:22)
[2023-05-18] MEDS: METOPROLOL TARTRATE 12.5 MG TABLET PO (09:22)
--- NOTE | 2023-05-18 10:57 | PM.DS ---
DS: Admitting Diagnosis Discharge Date To May 18, 2023 Admitting Diagnosis AFib near syncope DS: Discharge Diagnosis Discharge Diagnosis (1) Syncope: Code(s): R55 - Syncope and collapse Status: Acute Assessment and Plan: Patient gives a history of palpitations that are daily. This is likely his atrial fibrillation. Patient had a Holter monitor. May need another Holter set up for possibly loop recorder. Cardiology consult. (2) Atrial fibrillation, new onset: Code(s): I48.91 - Unspecified atrial fibrillation Status: Acute Assessment and Plan: will obtain echocardiogram in a.m. will continue to monitor no prior history of atrial fibrillation (3) CKD (chronic kidney disease): Code(s): N18.9 - Chronic kidney disease, unspecified Status: Acute Assessment and Plan: BUN and creatinine at patient's baseline continue to monitor repeat BMP in a.m. (4) Tobacco dependence: Code(s): F17.200 - Nicotine dependence, unspecified, uncomplicated Status: Acute Assessment and Plan: nicotine patch as needed patient is trying to quit (5) WAI (obstructive sleep apnea): Code(s): G47.33 - Obstructive sleep apnea (adult) (pediatric) Status: Chronic Assessment and Plan: Not using CPAP DS: Summary Hospital Course Hospital Course: Patient was admitted for syncope. Cardiology was consulted. Likely related to his atrial fibrillation. He does see a founder and chief executive officer and is supposed to see him in the next week or 2. We did adjust his medications and include flecainide on his discharge. Otherwise on his telemetry patient does have some PACs with PVCs. He can be discharged and follow-up with automatic silk screen printer. Time Spent with Patient Time attestation: Total time spent providing and/or coordinating discharge services: Exam Narrative: patient is laying in a stretcher Const: General: cooperative, comfortable, no acute distress, well developed, alert, awake, average body habitus and other ( well-appearing) Nutritional Appearance: average body habitus Orientation/consciousness: patient oriented x3 HENMT: Head: normal to inspection, normocephalic and atraumatic Ears: hearing grossly normal bilaterally Face/Nose/Sinus: normal facial exam Face and sinus: normal facial exam Eyes: General: appearance normal, both eyes and all related structures Pupils: Equal, round and reactive pupils present EOM: EOMs intact bilaterally Neck: Neck: full ROM, no lymphadenopathy and no JVD Thyroid: thyroid normal Lymphatic: no lymphadenopathy noted Resp: Effort & Inspection: normal respiratory effort and able to speak in complete sentences Auscultation: clear to auscultation bilaterally Cardio: Jugular venous distension: no JVD Rate: regular rate Rhythm: regular rhythm Heart sounds: S1 normal heart sound present and S2 normal heart sound present : General: Yes deferred Skin: Rashes: no rashes Wounds: no wounds Neuro: General: patient oriented x3, CN's II-XI intact bilaterally and Unable to assess gait Cranial nerves: Yes CN's II-XII intact bilaterally and Yes Equal, round and reactive pupils present Cognition (Neuro): normal cognition Speech: normal speech Gait exam (Neuro): Unable to assess gait Motor exam (neuro): 5/5 motor strength present throughout Sensory Exam: No Sensory deficit (Neuro) Extrem: General: normal to inspection, full ROM, no joint enlargement and no pedal edema DS: Data Data Completed and Pending Labs on day of discharge: Labs from last 24 hours 05/17/23 11:36 Urine Opiates Screen Negative Urine Methadone Screen Negative Ur Barbiturates Screen Negative Ur Phencyclidine Scrn Negative Ur Amphetamine Screen Negative U Benzodiazepines Scrn Negative Urine Cocaine Screen Negative U Cannabinoids Screen Negative Discharge Plan Discharge Attending physician on discharge: Evan Cabrera Consul
== END 2023-05-18 12:21 | disposition home or self-care (01) ==
LOC: ANHED 20:28 → ANHIMU 23:34
PROVIDERS: Admitting Provider Internal Medicine; Emergency Provider Emergency Medicine; PCP Family Medicine; Visit Provider Chiropractor
DX: R55 Syncope and collapse (principal); I48.91 Unspecified atrial fibrillation; I12.9 Hypertensive chronic kidney disease with stage 1 through stage 4 chronic kidney disease, or unspecified chronic kidney disease; E11.22 Type 2 diabetes mellitus with diabetic chronic kidney disease; N18.9 Chronic kidney disease, unspecified; E78.5 Hyperlipidemia, unspecified; N20.0 Calculus of kidney; G47.33 Obstructive sleep apnea (adult) (pediatric); G40.909 Epilepsy, unspecified, not intractable, without status epilepticus; R94.31 Abnormal electrocardiogram [ECG] [EKG]; R79.89 Other specified abnormal findings of blood chemistry; F10.90 Alcohol use, unspecified, uncomplicated; F17.200 Nicotine dependence, unspecified, uncomplicated; Z79.891 Long term (current) use of opiate analgesic; Z79.899 Other long term (current) drug therapy; Z83.3 Family history of diabetes mellitus; Z82.49 Family history of ischemic heart disease and other diseases of the circulatory system
CPT/HCPCS: 36415; 70450; 71045; 80053; 80307; 81001; 83735; 84484; 85025; 85610; 85730; 93005; 96360; 96361; 99285; A9270; G0378; J7030

== ENCOUNTER 2025-03-31 09:57 | Outpatient (CLI) | payer MEDICARE, SELFPAY ==
--- NOTE | ~2025-03-31 | CT_ITS ---
CT Scan of the Chest without Contrast: Clinical Indication: Lung cancer screening, nicotine dependence Technique: Contiguous sections were acquired throughout the chest without intravenous contrast. Dose reduction technique was used on this scan by utilizing automated exposure control and iterative recon struction technique. The dose-length product (DLP) was 72.84 mGy-cm. Findings: There is no evidence of any significant mediastinal, hilar or axillary lymphadenopathy. The mediastin al soft tissues appear normal. There is no evidence of pleural or pericardial effusion. 3 mm left basilar pulmonary nodule present (axial image 85). Images through the upper abdomen reveal no abnormalities. Impression: Lung RADS 2: Benign appearance. 12 month follow-up screening CT advised. Reviewed, dictated and finalized at location . Impression: Lung RADS 2: Benign appearance. 12 month follow-up screening CT advised.
--- OUTSIDE RECORDS SUMMARY | 2025-03-31 10:10 | XMS_ITS | Encounter Summary ---
Author Organization [employer] [facility] Address [address] [place] [address] Care Team Providers Care Pv Design And Installation Technician Name Role Phone Unavailable Primary Care Provider Unavailabl e Encounter Details Date Type Department Care Team (Latest Contact Info) Description 10/09/2004 Outpatient Historical HIS [facility] Markell Gonzalez MD [address] [facility] [id number] [place] [address] SKIN SENSATION DISTURB (Primary Dx) Social History Tobacco Use Types Packs/Day Years Used Date Smoking Tobacco: Never Assessed Sex and Gender Information Value Date Recorded Sex Assigned at Not on file Legal Sex Male 3:04 AM [employer] Gender Identity Not on file Sexual Orientation Not on file documented as of this encounter Plan of Treatment Not on file documented as of this encounter Visit Diagnoses Diagnosis Disturbance of skin sensation- Primary documented in this encounter
--- OUTSIDE RECORDS SUMMARY | 2025-03-31 10:10 | XMS_ITS | Clinical Summary ---
[facility] Address [address] [place] [address] Care Team Providers Care Trauma Doctor Name Role Phone Sher Arndt MD Primary Care Provider [phone] Allergies Active Allergy Reactions Criticality Noted Date Comments Other Other (See comments) 02/21/2025 Penicillins Unknown 07/01/2022 childhood Medications cyanocobalamin (VITAMIN B-12) 2,000 mcg tablet 2,000 mcg. 0 0 5 Active [id number]- iron ps-om3-dha 35-1-200 mg capsuleIndicati ons:Vitamin Deficiency Prevention Take by mouth every morning Active metFORMIN XR (GLUCOPHAGE XR) 500 mg 24 hr tablet Take 1 tablet (500 mg total) by mouth daily with breakfast Taking 2 tablets in evening 3 Active Eliquis 5 mg tablet Take 1 tablet (5 mg total) by mouth 2 (two) times a day 3 Active tamsulosin (FLOMAX) 0.4 mg extended release capsule Take 1 capsule (0.4 mg total) by mouth daily 3 Active docosahexaenoic acid-epa (Fish OiL) 120-180 mg capsule Take by mouth Active ergocalciferol (VITAMIN D) 50,000 unit capsule Take 1 capsule (50,000 Units total) by mouth 4 Active atorvastatin (LIPITOR) 40 mg tablet Take 1 tablet (40 mg total) by mouth nightly at bedtime 4 Active lisinopriL (PRINIVIL,ZESTR IL) 10 mg tablet Take 1 tablet (10 mg total) by mouth daily 4 Active metoprolol XL (Toprol XL) 50 mg extended release tablet Take 1 tablet (50 mg total) by mouth daily 30 tablet 11 4 09/20/20 25 Active fenofibrate (TRICOR) 54 mg tablet Take 1 tablet (54 mg total) by mouth every morning 5 Active Active Problems Problem Noted Date Diagnosed Date WAI (obstructive sleep apnea) 01/25/2024 Disturbance in sleep behavior 01/25/2024 Syncope and collapse 06/02/2023 Paroxysmal atrial fibrillation 06/02/2023 HTN (hypertension) 06/02/2023 Complete tear of left rotator cuff 06/27/2022 Overview (06/27/2022): Added automatically from request for surgery [id number] Labral tear of long head of left biceps tendon 0 06/27/2022 Overview (06/27/2022): Added automatically from request for surgery [id number] Numbness and tingling 12/10/2017 Seizure disorder 05/20/2016 Overview (02/06/2017): Seizure disorder 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 Overview (02/06/2017): Atypical facial pain Degeneration of intervertebral disc of lumbar re gion 05/20/2016 Overview (02/06/2017): Lumbar disc degeneration Encounters Date Type Department Care Team Description 03/30/2025 Results Follow-Up [facility] Cardiology [address] [place] [address] Jessica Mcmullen MD [facility] Mobile Cardiac Telemetry Event Monitor 03/22/2025 Telephone [facility] Cardiology [address] [place] [address] [address]th [place] [address] [place] [address] Jessica Mcmullen MD 02/21/2025 10:30 AM CDT Ancillary Procedure [facility] Cardiology [address] [place] [address] Paroxysmal atrial fibrillation (HCC) 02/21/2025 10:15 AM CDT Office Visit [facility] Cardiology [address] [place] [address] Jessica Mcmullen MD Paroxysmal atrial fibrillation (HCC) (Primary Dx); Primary hypertension 01/10/2025 9:30 AM CDT Office Visit [facility] Cardiology [address] 8th [place] [address] [place] [address] Paroxysmal atrial fibrillation (HCC) (Primary Dx); Primary hypertension from Last 3 Months Surgical History Surgery Date Site/Laterality Comments TYMPANOSTOMY TUBE PLACEMENT 11/02/2020 - 11/01/2021 HERNIA REPAIR 11/02/2019 - 11/01/2020 unknown side OTHER SURGICAL HISTORY Left ulnar nerve surgery Medical History Medical History Date Comments Optic neuritis Seizure disorder (HCC) off seizu re meds x2-3 years with no seizures. reports h/o x1 seizure in ~2004 Hypertension Back pain Headache Memory loss WAI (obstructive sleep apnea) do es not use CPAP Family History Medical History Relation Name Comments Heart disease Father Hypertension Father Hypertension Mother Multiple sclerosis Other Cousin Multiple sclerosis; Arrhythmia Sister Anesthesia problems Neg Hx Relation Name Status Comments Father Mother Other Cousin Sister Social History Tobacco Use Types Packs/Day Years Used Date Smoking Tobacco: Some Days Cigars Passive Smoke Exposure: Past Smokeless Tobacco: Never Tobacco Cessation:Ready to Q uit: Yes; Counseling Given: Yes Alcohol Use Standard Drinks/Week Comments Yes 0 (1 standard drink = 0.6 oz pur e alcohol) AUDIT-C Answer Date Recorded Q1: How often do you have a drink containing alc ohol? Monthly or less 07/01/2022 Q2: How many drinks containi ng alcohol do you have on a typical day when you are drinking? 1 or 2 07/01/2022 Frequency of Binge Drinking Not on file 06/04 Sex and Gender Information Value Date Recorded Sex Assigned at Not on file Legal Sex Male 12:22 AM [employer] Gender Identity Not on file Sexual Orientation Not on file Obstetrics History Last Filed Vital Signs Vital Sign Reading Time Taken Comments Blood Pressure 113/73 02/21/2025 10:40 AM CDT Pulse 62 02/21/2025 10:40 AM CDT Temperature 37.3 C (99.1 F) 02/21/2025 10:40 AM CDT Respiratory Rate 18 07/11/2022 12:4 5 PM CDT Oxygen Saturation 97% 02/21/2025 10: 40 AM CDT Inhaled Oxygen Concentration - - Weight 81.6 kg (179 lb 14.4 oz) 025 10:40 AM CDT Height 175.3 cm (5' 9) 02/21/2025 10:4 0 AM CDT Body Mass Index 26.57 02/21/2025 10:40 AM CDT Plan of Treatment Health Maintenance Due Date Last Done Comments Colon Cancer Screening-Colonoscopy 1955 Depression Screening 1955 Hepatitis C Screening 1955 Prostate Cancer Screening-PSA 1955 Hepatitis B Screening 1974 Pneumococcal vaccine 65+ (1 of 2 - PCV) 1975 Zoster Vaccine (1 of 2) 2006 Well Visit 65+ 2021 Fall Risk Assessment 07/11/2023 07/11/2022 Influenza Vaccine (Season Ended) 2025 DTaP/Tdap/Td Vaccine (2 - Td or Tdap) 02/07/203205/2022 Abdominal Aortic Aneurysm (AAA) Screen Completed Medical Devices Implanted Type Area Retail Product Demo Specialist Device Identifier Shelf Expiration Date Model / Serial / Lot [employer] Swivelock C 4.75mm 19.1mm Closed Eyelet Vent Aurora Suture Ar-2324bcc - [id number] Implanted:Qty: 1 on 07/11/2022 by Jay Olvera MD at [facility] Left: Shoulder [employer] 05/01/2026 AR-2324BCC / / [id number] [employer] Swivelock C 4.75mm 19.1mm Closed Eyelet Vent Aurora Suture Ar-2324bcc - [id number] Implanted:Qty: 1 on 07/11/2022 by Jay Olvera MD at [facility] [place] Left: Shoulder [employer] 05/01/2026 AR-2324BCC / / [id number] [employer] Swivelock C 4.75mm 19.1mm Closed Eyelet Vent Aurora Suture Ar-2324bcc - [id number] Implanted:Qty: 1 on 07/11/2022 by Jay Olvera MD at [facility] [place] Left: Humerus [employer] 05/01/2026 AR-2324BCC / / [id number] [employer] Swivelock C 4.75mm 19.1mm Closed Eyelet Vent Aurora Suture Ar-2324bcc - [id number] Implanted:Qty: 1 on 07/11/2022 by Jay Olvera MD at [facility] [place] Left: Humerus [employer] 05/01/2026 AR-2324BCC / / [id number] [employer] Swivelock C 4.75mm 19.1mm Closed Eyelet Vent Aurora Suture Ar-2324bcc - [id number] Implanted:Qty: 1 on 07/11/2022 by Jay Olvera MD at [facility] [place] Left: Humerus [employer] 05/01/2026 AR-2324BCC / / [id number] [employer] Swivelock C 4.75mm 19.1mm Closed Eyelet Vent Aurora Suture Ar-2324bcc - [id number] Implanted:Qty: 1 on 07/11/2022 by Jay Olvera MD at [facility] [place] Left: Humerus [employer] 05/01/2026 AR-2324BCC / / [id number] Procedures Procedure Name Priority Date/Time Associated Diagnosis Comments MCT - MOBILE CARDIAC TELEMETRY EVENT MONITOR Routine 02/21/2025 4:20 PM CDT Paroxysmal atrial fibrillation (HCC) from Last 3 Months Results * MCT Mobile Cardiac Telemetry Event Monitor (02/21/2025 4:20 PM CDT) Anatomical Region Laterality Modality Electrocardiogra phy 03/24/2025 11:5 9 PM CDT Narrative 03/30/2025 3:23 PM CDT CARDIAC EVENT MONITOR REPORT Patient Name: ERIKA BRAGG Mayo : 1955 (69y 9m) Gender: M Study Date: 03/24/2025 11:59:00 PM Ht(Inch): Wt(Lb): BSA: Tech: Location: [facility] Order Provider: JESSICA MCMULLEN BMI: Ref Provider: JESSICA MCMULLEN PROCEDURES: Event Report: [facility] MOBILE CARDIAC TELEMETRY EVENT MONITOR [[id number]]. Enrollment Period: 2025-02-23 00:00:00 through 2025-03-24 00:00:00. Hookup: Patient Hookup: home. Patient Instructions: Patient picked up device from office and understand directions and use of the equipment. Location: [facility]. INDICATIONS: I48.0 Paroxysmal atrial fibrillation. FINDINGS: Event Data: Min Rate: 48 BPM Min Rate Timestamp: 2025-03-06 05:57:00 Max Rate: 192 BPM Max Rate Timestamp: 2025-02-25 09:28:00 Mean Rate: 70 BPM SIGNIFICANT PAUSES: 1 >3 sec SUMMARY: *The predominant rhythm was Sinus Rhythm. WITH PERIODS OF ATRIAL FIBRILLATION. *The Maximum Heart Rate recorded was 192 BPM, 09:28 AM 02/25, the Minimum Heart Rate recorded was 48 BPM, 05:57 AM 03/06 and the Average Heart Rate was 70 BPM. The study included 1 Pause. The Longest Pause was 4.0s, 03:46 AM 03/07. THIS OCCURRED WHEN A BOUT OF ATRIAL FIB BROKE TO SINUS *There were 5,331 VE beats with a burden of <1 %. There was 1 occurrence of Ventricular Tachycardia with the longest episode 3s, 10:01 AM 03/11 and fastest episode 128 BPM, 10:01 AM 03/11. *There were 51,200 SVE beats with a burden of 3 %. *The study included an Atrial Fibrillation/Flutter [place] of 7 %. The longest episode was 3h 29m 17s, 12:17 AM 03/07 and the fastest episode was 192 BPM, 09:28 AM 4/26. *There were 0 manually detected events. CONCLUSIONS: 1. I have reviewed the PDF and all the ECG strips. I agree with the interpretations as detailed in the report. 2. The PDF can be found in the Epic Patient chart. Please go to the Cardiology tab, click on the holter or event exam. Scroll to bottom where the ORDER-LEVEL Documents reside and click the blue link to the pdf. Electronically Signed By: Eugene Temple MD 03/30/2025 3:20:49 PM CDT Electronically Signed By: Eugene Temple MD 03/30/2025 3:20:49 PM CDT Procedure Note Eugene Temple MD - 03/30/2025 CARDIAC EVENT MONITOR REPORT Patient Name: ERIKA BRAGG L : 1955 (69y 9m) Gender: M Study Date: 03/24/2025 11:59:00 PM Ht(Inch): Wt(Lb): BSA: Tech: Location: [facility] Order Provider: JESSICA MCMULLEN BMI: Ref Provider: JESSICA MCMULLEN PROCEDURES: Event Report: [facility] MOBILE CARDIAC TELEMETRY EVENT MONITOR [[id number]]. Enrollment Period: 2025-02-23 00:00:00 through 2025-03-24 00:00:00. Hookup: Patient Hookup: home. Patient Instructions: Patient picked up device from office and understanddirections and use of the equipment. Location: [facility]. INDICATIONS: I48.0 Paroxysmal atrial fibrillation. FINDINGS: Event Data: Min Rate: 48 BPM Min Rate Timestamp: 2025-03-06 05:57:00 Max Rate: 192 BPM Max Rate Timestamp: 2025-02-25 09:28:00 Mean Rate: 70 BPM SIGNIFICANT PAUSES: 1 >3 sec SUMMARY: *The predominant rhythm was Sinus Rhythm. WITH PERIODS OF ATRIALFIBRILLATION. *The Maximum Heart Rate recorded was 192 BPM, 09:28 AM 02/25, the MinimumHeart Rate recorded was 48 BPM, 05:57 AM 03/06 and the Average Heart Rate was 70 BPM. The study included 1 Pause. The Longest Pause was 4.0s, 03:46 AM 03/07. THISOCCURRED WHEN A BOUT OF ATRIAL FIB BROKE TO SINUS *There were 5,331 VE beats with a burden of <1 %. There was 1 occurrenceof Ventricular Tachycardia with the longest episode 3s, 10:01 AM 03/11 and fastest luxadhp106 BPM, 10:01 AM 03/11. *There were 51,200 SVE beats with a burden of 3 %. *The study included an Atrial Fibrillation/Flutter [place] of 7 %. Thelongest episode was 3h 29m 17s, 12:17 AM 03/07 and the fastest episode was 192 BPM, 09:28 AM02/25. *There were 0 manually detected events. CONCLUSIONS: 1. I have reviewed the PDF and all the ECG strips. I agree with theinterpretations as detailed in the report. 2. The PDF can be found in the [facility] Patient chart. Please go to theCardiology tab, click on the holter or event exam. Scroll to bottom where the ORDER-LEVELDocuments reside and click the blue link to the pdf. Electronically Signed By: Eugene Temple MD 03/30/2025 3:20:49 PM CDT Electronically Signed By: Eugene Temple MD 03/30/2025 3:20:49 PM CDT Jessica Mcmullen MD [facility] PROCEDURES Final Result from Last 3 Months Insurance [facility] MED[facility] ADVANTAGE Member Subscriber Plan / Payer (Ef fective 2017-Present) Name:MENG BRAGGOLINDA Huber Relation to Subscriber:Self Name:Erika Bragg Mayo Payer ID:[id number] (NAIC) Type:[facility] MED[facility] Address: [place] [id number] [facility] MED[facility]ARE ADVANTAGE [facility] MDCR HMO REF Member Subscriber Plan / Payer (Ef fective 2021-Present) Name:Erika Bragg Relation to Subscriber:Self Name:ChandlerErika villarreal Payer ID:[id number] (NAIC) Type:[facility] MED[facility] Address: [place] [id number] Care Teams Trauma Doctor Relationship Specialty Start Date End Date Sher Arndt MD [address] [place] [address] [place] [address] PCP - General Family Medicine 12/22/23
--- OUTSIDE RECORDS SUMMARY | 2025-03-31 10:10 | XMS_ITS | Continuity of Care Document ---
Author Organization [facility] Address [address] [place] [address] Phone Care Team Providers Care [place] Finisher Name Role Phone [facility] Unavailable Unavail able Rebecca Ibrahim Unavailable Unavailable Procedures Procedure Date Vision Svcs Frames Purchases SV Poly Carb Sph [place] To +/- 4 010 No Charge Glasses Check SV Poly Carb Sph +/- 7.12 To +/- 20 D Vision Svcs Frames Purchases Eye Exam & Treatment Refraction No Charge Glasses Check CL Replacement - Other Lens Tax - Medical Eye Exam & Treatment Refraction CL Replacement - Vistakon Other 009 Tax - Medical No Charge Contact Lens Check Advance Directives Directive Yes / No Effective Date File Name No Information Encounters Encounter Description Practice Location Reason(s) For Visit Diagnoses Date Provider Providers Copied on Encounter [facility], [address], [place], [place], [id number], [place] tel:[phone] [facility] No Information 0 [facility] . [address], [address], [place], [place], [address], [place]. tel:[phone] Referring Provider: Omid Almendarez OD A, [address], [place], [address]. tel:[phone] g Provider: Rebecca Ibrahim, [address] [place] [address], [address]. tel:[phone] [address] [place] [address] [facility], [address], [place], [place], [address], [place] tel:[phone] [facility] No Information b- 8-201 0 Almendarez OD Omid. [address] , [address], [place], [address], [place]. tel:[phone] [facility], [address], [place], [place], [address], [place] tel:[phone] [facility] No Information 6-201 0 [facility] . [address], [address], [place], [place], [address], [place]. tel:[phone] Referring Provider: Omid Almendarez OD A, [address], [place], [address]. tel:[phone] g Provider: Rebecca Ibrahim, [address] [place] [address], [address]. tel:[phone] [address] [place] [address] [facility], [address], [place], [place], [address], [place] tel:[phone] [facility] No Information 1-201 0 Almendarez OD Omid. [address] , [address], [place], [address], [place]. tel:[phone] [facility], [address], [place], [place], [address], [place] tel:[phone] [facility] No Information Oct-2 2-200 9 Almendarez OD Omid. [address] , [address], [place], [address], [place]. tel:[phone] [facility], [address] [place] [address] [address], [place], [place], [address], tel:[phone] [facility] No Information Sep-2 2-200 9 Almendarez OD Omid. [address] , [address], [place], [place], [facility], . tel:[phone] [facility], [address] [place] [address] [address], [place], [place], [address], tel:[phone] [facility] No Information Mar-2 8-200 9 Almendarez OD Omid. [address] , [address], [place], [facility], . tel:[phone] [facility], [address] [place] [address] [address], [place], [place], [address], tel:[phone] [facility] No Information Feb-1 2-200 9 Almendarez OD Omid. [address] , [address], [place], [facility], . tel:[phone] [facility], [address] [place] [address] [address], [place], [place], [address], tel:[phone] [facility] No Information Nov-0 8-200 8 Almendarez OD Omid. [address] , [address], [place], [place], [facility], . tel:[phone] Family History Family Member Type Diagnosis Age At Onset No Information Payers Payer name Insurance type Covered constitution party ID Authoriza tion(s) No Information Social History Type Description Quantity Date Captured Comments Sex Male Smoking Status No Information Chief Complaint And Reason For Visit No Information Reason For Referral Reason For Referral No Information History Of Present Illness Encounter Date Complaint History Of Prese nt Illness No Information Functional Status Date Functional Assessmen t No Information Instructions Date Instruction Additional Infor mation No Information Assessments Type Assessment Date No Information Patient Care Teams Name Effective Dates (start - stop) Status Members No Information
--- OUTSIDE RECORDS SUMMARY | 2025-03-31 10:10 | XMS_ITS | Referral Summary ---
Author Organization [facility] Address [address] [facility] [place] [address] Care Team Providers Care Timber Framer Helper Name Role Phone Sher Arndt MD Primary Care Provider [phone] Encounters Date Type Department Care Team Description 03/30/2025 Results Follow-Up [facility] Cardiology [address] [place] [address] [place] [address] Jessica Mcmullen MD [facility] Mobile Cardiac Telemetry Event Monitor 03/22/2025 Telephone [facility] Cardiology [address] [place] [address] 8th [place] [address] [place] [address] Jessica Mcmullen MD 02/21/2025 10:30 AM CDT Ancillary Procedure [facility] Cardiology [address] [facility] [address] [place] [address] Paroxysmal atrial fibrillation (HCC) 02/21/2025 10:15 AM CDT Office Visit [facility] Cardiology [address] [address] Jessica Mcmullen MD Paroxysmal atrial fibrillation (HCC) (Primary Dx); Primary hypertension 01/10/2025 9:30 AM CDT Office Visit [facility] Cardiology [address] [place] [address] 8th [place] [address] [place] [address] Paroxysmal atrial fibrillation (HCC) (Primary Dx); Primary hypertension from Last 3 Months Allergies Active Allergy Reactions Criticality Noted Date Comments Other Other (See comments) 02/21/2025 Penicillins Unknown 07/01/2022 childhood Medications cyanocobalamin (VITAMIN B-12) 2,000 mcg tablet 2,000 mcg. 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 Overview (02/06/2017): Atypical facial pain Degeneration of intervertebral disc of lumbar re gion 05/20/2016 Overview (02/06/2017): Lumbar disc degeneration Social History Tobacco Use Types Packs/Day Years [...] on file Legal 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 Gender Identity Not on file Sexual Orientation Not on file Last Filed Vital Signs Vital Sign Reading [...] 02/21/2025 10:40 AM CDT Plan of Treatment Not on file Medical Devices Implanted Type Area Sticker On Device Identifier Shelf Expiration Date Model / Serial / Lot [employer] Swivelock C 4.75mm 19.1mm Closed Eyelet Vent [place] Suture Ar-2324bcc - [id number] Implanted:Qty: 1 on 07/11/2022 by Jay Olvera MD at [facility] Left: Shoulder [employer] 05/01/2026 AR-2324BCC / / [id number] [employer] Swivelock C 4.75mm 19.1mm Closed Eyelet Vent [place] Suture Ar-2324bcc - [id number] Implanted:Qty: 1 on 07/11/2022 by Jay Olvera MD at [facility] Left: Shoulder [employer] 05/01/2026 AR-2324BCC / / [id number] [employer] Swivelock C 4.75mm 19.1mm Closed Eyelet Vent [place] Suture Ar-2324bcc - [id number] Implanted:Qty: 1 on 07/11/2022 by Jay Olvera MD at [facility] Left: Humerus [employer] 05/01/2026 AR-2324BCC / / [id number] [employer] Swivelock C 4.75mm 19.1mm Closed Eyelet Vent [place] Suture Ar-2324bcc - [id number] Implanted:Qty: 1 on 07/11/2022 by Jay Olvera MD at [facility] Left: Humerus [employer] 05/01/2026 AR-2324BCC / / [id number] [employer] Swivelock C 4.75mm 19.1mm Closed Eyelet Vent [place] Suture Ar-2324bcc - [id number] Implanted:Qty: 1 on 07/11/2022 by Jay Olvera MD at [facility] Left: Humerus [employer] 05/01/2026 AR-2324BCC / / [id number] [employer] Swivelock C 4.75mm 19.1mm Closed Eyelet Vent [place] Suture Ar-2324bcc - [id number] Implanted:Qty: 1 on 07/11/2022 by Jay Olvera MD at [facility] Left: Humerus [employer] 05/01/2026 AR-2324BCC / / [id number] Procedures Procedure Name Priority Date/Time Associated Diagnosis Comments [facility] - MOBILE CARDIAC TELEMETRY EVENT MONITOR Routine 02/21/2025 4:20 PM CDT Paroxysmal atrial fibrillation (HCC) from Last 3 Months Results * [facility] Mobile Cardiac Telemetry Event Monitor (02/21/2025 4:20 PM CDT) Anatomical Region Laterality Modality Electrocardiogra phy 03/24/2025 11:5 9 PM CDT Narrative 03/30/2025 3:23 PM CDT CARDIAC EVENT MONITOR REPORT Patient Name: ERIKA BRAGG L : 1955 (69y 9m) Gender: M Study Date: 03/24/2025 11:59:00 PM Ht(Inch): Wt(Lb): BSA: Tech: [place] [facility] [place] Provider: JESSICA MCMULLEN BMI: Ref Provider: JESSICA MCMULLEN PROCEDURES: Event Report: [facility] MOBILE CARDIAC TELEMETRY EVENT MONITOR [[id number]]. Enrollment Period: 2025-02-23 00:00:00 through 2025-03-24 00:00:00. Hookup: Patient Hookup: home. Patient Instructions: Patient picked up device from office and understand directions and use of the equipment. Location: [facility]. INDICATIONS: I48.0 Paroxysmal atrial fibrillation. FINDINGS: Event [...] %. *The study included an Atrial Fibrillation/Flutter [place] of 7 %. The longest episode was 3h 29m 17s, 12:17 AM 03/07 and the fastest episode was 192 BPM, 09:28 AM 02/25. *There were 0 manually detected events. CONCLUSIONS: [...] 11:59:00 PM Ht(Inch): Wt(Lb): BSA: Tech: [place] [facility] [place] Provider: JESSICA MCMULLEN BMI: Ref Provider: JESSICA MCMULLEN PROCEDURES: Event Report: [facility] MOBILE CARDIAC TELEMETRY EVENT MONITOR [[id number]]. Enrollment Period: 2025-02-23 00:00:00 through 2025-03-24 00:00:00. Hookup: Patient Hookup: home. Patient Instructions: Patient picked up device from office and understanddirections and use of the equipment. Location: [facility]. INDICATIONS: I48.0 Paroxysmal atrial fibrillation. FINDINGS: Event [...] with the longest episode 3s, 10:01 AM 10 and fastest [id number] BPM, 10:01 AM 10. *There were 51,200 SVE beats with a burden of 3 %. *The study included an Atrial Fibrillation/Flutter [place] of 7 %. Thelongest episode was 3h 29m 17s, 12:17 AM 03/07 and the fastest episode was 192 BPM, 09:28 AM02/25. *There were 0 manually detected events. CONCLUSIONS: 1. I have reviewed the PDF and all the ECG strips. I agree with theinterpretations as detailed in the report. 2. The PDF can be found in the [facility] Patient chart. Please go to theCardiology [...] Final Result from Last 3 Months Insurance [facility] Address: [address] [address] [place] [address] [employer] MEDICARE ADVANTAGE [facility] MEDIC[facility] Address: [address] [address] [place] [address] [facility] MDCR HMO REF [facility] MEDIC[facility] Address: [address] [address] Care Teams Timber Framer Helper Relationship Specialty Start Date End Date Sher Arndt MD [address] [place] [address] PCP - General Family Medicine 12/22/23
--- OUTSIDE RECORDS SUMMARY | 2025-03-31 10:10 | XMS_ITS | Clinical Summary ---
Author Organization [employer] Address [address] [facility] Attn: Epic Prelude ADT [place] [address] Care Team Providers Care Glass Calibrator Name Role Phone Unavailable Primary Care Provider Unavailabl e Social History Tobacco Use Types Packs/Day Years Used Date Smoking Tobacco: Never Assessed Sex and Gender Information Value Date Recorded Sex Assigned at Not on file Legal Sex Male 3:04 AM RAGMAN Gender Identity Not on file Sexual Orientation Not on file Plan of Treatment Health Maintenance Due Date Last Done Comments DTAP/TDAP/TD VACCINES (1 - Tdap) 1975 COLORECTAL SCREENING 2001 Colorectal Cancer Screening 2001 FIT-DNA Q 3 years 2001 FIT/FOBT Q 1 year 2001 Flex Sig/CT Colonography Q 5 years 2001 PNEUMOCOCCAL VACCINE 50+ YEARS (1 of 1 - PCV) 06/01/20 06 ZOSTER VACCINE (1 of 2) 2006 INFLUENZA VACCINE (#1) 2024 RSV VACCINE (60+ or ) (1 - 1-dose 75+ series) 2031
--- OUTSIDE RECORDS SUMMARY | 2025-03-31 10:10 | XMS_ITS | Encounter Summary ---
Author Organization [facility] Address [address] [place] [address] Phone Care Team Providers Care Websphere Portal Developer Name Role Phone Sher Arndt MD Primary Care Provider [phone] Encounter Details Date Type Department Care Team (Late st Contact Info) Description 03/30/2025 Results Follow-Up [facility] Cardiology [address] [facility] [address] [place] [address] Jessica Mcmullen MD [address] 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
--- OUTSIDE RECORDS SUMMARY | 2025-03-31 10:10 | XMS_ITS | Encounter Summary ---
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 Gender Identity Not on file Sexual Orientation Not on file documented as of this encounter Plan of Treatment Not on file documented as of this encounter Procedures Procedure Name Priority Date/Time Associated Diagnosis Comments CARDIOLOGY DOCUMENT SCAN 06/12/2023 documented in this encounter Results * CARDIOLOGY DOCUMENT SCAN (06/12/2023) Anatomical Region Laterality Modality Other us Provider Scanning CV CARDIAC SERVICES PROCEDURES Final Result documented in this encounter Visit Diagnoses Not on filedocumented in this encounter Care Teams Assistant Scientist Relationship Specialty Start Date End Date Referral, Self PCP - General 04/30/23 12/21/23 Sher Arndt MD [address] [place] [address] PCP - General Family Medicine 12/22/23 documented as of this encounter
--- OUTSIDE RECORDS SUMMARY | 2025-03-31 10:10 | XMS_ITS | Encounter Summary ---
Author Organization [employer] Address 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
--- OUTSIDE RECORDS SUMMARY | 2025-03-31 10:10 | XMS_ITS | Encounter Summary ---
Author Organization [email or web address] Address 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
--- OUTSIDE RECORDS SUMMARY | 2025-03-31 10:11 | XMS_ITS | Data Portability ---
Author Organization [facility] [employer], Main Office Address [address] [place] [address] Care Team Providers Care Solutions Architect Name Role Phone SHER ARNDT Primary Care Provider [phone] SHER ARNDT Referring Provider Assessment Encounter Date Assessment Date Assessment LastModified by Organization Details LastModified Time 03/07/2024 03/07/2024 68 yo M with - A FIB, stable - DM II, stable - INSOMNIA - HTG - HLD - HTN - CKD II/III, Stable - LT KIDNEY STONE (7 mm & 2 mm) - BPH - ED - LT ROTATOR CUFF TEAR, complete - B/L SHOULDER PAIN, chronic - SEIZURE DISORDER - MULTIPLE SKIN LESIONS ON BACK - SMOKER (Cigars) - FH OF CVD - H/O VIT B12 DEFICIENCY - H/O LEUKOCYTOSIS HbA1C: 6.0(04/07/18) - 6.2(08/16/18) - 6.2(10/13/18) - 6.5(04/21/19) - 6.4(08/29/20) - 6.0(12/20/20) - 6.3(02/09/23) - 5.5(02/18/24) Annual labs: 02/18/24. NM perfusion scan: 04/17/23. LDCT chest: 04/13/23. 2-D echo: 03/12/23. US carotid duplex: 03/12/23. Annual labs: 02/09/23. X-ray KUB: 08/18/22. CT A&P wo: 08/16/22. MRI Lt shoulder wo: 05/13/22. LDCT chest: 03/23/22. US AA: 03/21/22. X-ray b/l shoulders: 02/24/22. CXR: 02/24/22. Annual labs: 02/06/22. Annual labs: 08/29/20. CT A&P w: 08/20/20. CT A&P wo: 06/10/19. US scrotum: 06/10/19. CT A&P wo: 05/18/19. X-ray L-spine: 05/18/19. US kidney: 04/19/18. CXR: 04/19/18. Annual labs: 04/07/18. D/w pt about his findings, recent labs & imagines and further plan of care. [facility] questionnaire reviewed with pt. Answered all questions and concerns for the pt. Fall risk precautions explained. All meds verified with pt. Meds as directed. Diet and exercise explained in detail. BP diary education given and advised to call us if any concerns. Pt is currently smoking cigars about 2-3 cigars per day. Encouraged pt to quit smoking. Discussed in detail about different options to quit smoking including Zyban, Nicotine patch, Nicotine gum/lozenges etc. Pt will let us know when he is ready for it. Cont f/u with EP at [facility] as per schedule. Cont f/u with Cardio as per schedule. Cont f/u with Ortho at as per schedule. Cont f/u with Uro at [facility] as per schedule. Cont f/u with Derm as per schedule. Cont f/u with Ophtho at [facility] as per schedule. Cont f/u with Neuro at [facility] as per schedule. Pt to f/u with them for driving recommendations. Cont f/u with GI at [facility] as per schedule. Advised pt to do EGK/testosterone check; but pt declined. Advised to refer to [facility]; but pt declined. HM: Colonoscopy - 09/19, polyp +. Cont f/u with GI as per schedule (5 yrs). AAA - 03/21/22, normal. Tdap - 02/06/22. Flu - Pt declined. Pneumo - Pt declined. Shingrix, RSV - At pharmacy/HD. F/u in 3 months. Lipids, A1c in 06/25. Annual labs, LDCT chest in 03/26. [email or web address] Not available 03/07/2024 16:49:29 12/15/2024 12/15/2024 69 yo M with - A FIB, stable - DM II, stable - INSOMNIA - HTG - HLD - HTN - CKD II/III, Stable - LT KIDNEY STONE (7 mm & 2 mm) - BPH - ED - LT ROTATOR CUFF TEAR, complete - B/L SHOULDER PAIN, chronic - SEIZURE DISORDER - MULTIPLE SKIN LESIONS ON BACK - SMOKER (Cigars) - FH OF CVD - H/O VIT B12 DEFICIENCY - H/O LEUKOCYTOSIS HbA1C: 6.0(04/07/18) - 6.2(08/16/18) - 6.2(10/13/18) - 6.5(04/21/19) - 6.4(08/29/20) - 6.0(12/20/20) - 6.3(02/09/23) - 5.5(02/18/24) Annual labs: 02/18/24. NM perfusion scan: 04/17/23. LDCT chest: 04/13/23. 2-D echo: 03/12/23. US carotid duplex: 03/12/23. Annual labs: 02/09/23. X-ray KUB: 08/18/22. CT A&P wo: 08/16/22. MRI Lt shoulder wo: 05/13/22. LDCT chest: 03/23/22. US AA: 03/21/22. X-ray b/l shoulders: 02/24/22. CXR: 02/24/22. Annual labs: 02/06/22. Annual labs: 08/29/20. CT A&P w: 08/20/20. CT A&P wo: 06/10/19. US scrotum: 06/10/19. CT A&P wo: 05/18/19. X-ray L-spine: 05/18/19. US kidney: 04/19/18. CXR: 04/19/18. Annual labs: 04/07/18. D/w pt about his findings, recent labs & imagines and further plan of care. Pt needs to contact his insurance about the paperwork and let us know. Papers given back to pt. All meds verified with pt. Meds as directed. Diet and exercise explained in detail. BP diary education given and advised to call us if any concerns. Pt is currently smoking cigars about 2-3 cigars per day. Encouraged pt to quit smoking. Discussed in detail about different options to quit smoking including Zyban, Nicotine patch, Nicotine gum/lozenges etc. Pt will let us know when he is ready for it. Cont f/u with EP at [facility] as per schedule. Cont f/u with Cardio as per schedule. Cont f/u with Ortho at as per schedule. Cont f/u with Uro at [facility] as per schedule. Cont f/u with Derm as per schedule. Cont f/u with Ophtho at [facility] as per schedule. Cont f/u with Neuro at [facility] as per schedule. Pt to f/u with them for driving recommendations. Cont f/u with GI at [facility] as per schedule. Advised pt to do EGK/testosterone check; but pt declined. Advised to refer to [facility]; but pt declined. HM: Colonoscopy - 09/19, polyp +. Cont f/u with GI as per schedule (5 yrs). AAA - 03/21/22, normal. Tdap - 02/06/22. Flu - Pt declined. Pneumo - Pt declined. Shingrix, RSV - At pharmacy/HD. F/u in 1-2 months. Lipids, A1c before next visit. Annual labs, LDCT chest in 03/26. Not available 12/15/2024 10:51:07 01/18/2025 01/18/2025 69 yo M with - HTG, uncontrolled - HLD - A FIB, stable - DM II, stable - INSOMNIA - HTN - CKD II/III, Stable - LT KIDNEY STONE (7 mm & 2 mm) - BPH - ED - LT ROTATOR CUFF TEAR, complete - B/L SHOULDER PAIN, chronic - SEIZURE DISORDER - MULTIPLE SKIN LESIONS ON BACK - SMOKER (Cigars) - FH OF CVD - H/O VIT B12 DEFICIENCY - H/O LEUKOCYTOSIS HbA1C: 6.0(04/07/18) - 6.2(08/16/18) - 6.2(10/13/18) - 6.5(04/21/19) - 6.4(08/29/20) - 6.0(12/20/20) - 6.3(02/09/23) - 5.5(02/18/24) - 6.0(01/04/25) Annual labs: 02/18/24. NM perfusion scan: 04/17/23. LDCT chest: 04/13/23. 2-D echo: 03/12/23. US carotid duplex: 03/12/23. Annual labs: 02/09/23. X-ray KUB: 08/18/22. CT A&P wo: 08/16/22. MRI Lt shoulder wo: 05/13/22. LDCT chest: 03/23/22. US AA: 03/21/22. X-ray b/l shoulders: 02/24/22. CXR: 02/24/22. Annual labs: 02/06/22. Annual labs: 08/29/20. CT A&P w: 08/20/20. CT A&P wo: 06/10/19. US scrotum: 06/10/19. CT A&P wo: 05/18/19. X-ray L-spine: 05/18/19. US kidney: 04/19/18. CXR: 04/19/18. Annual labs: 04/07/18. D/w pt about his findings, recent labs & imagines and further plan of care. All meds verified with pt. Meds as directed. Diet and exercise explained in detail. BP diary education given and advised to call us if any concerns. Pt is currently smoking cigars about 2-3 cigars per day. Encouraged pt to quit smoking. Discussed in detail about different options to quit smoking including Zyban, Nicotine patch, Nicotine gum/lozenges etc. Pt will let us know when he is ready for it. Cont f/u with EP at [facility] as per schedule. Cont f/u with Cardio as per schedule. Cont f/u with Ortho at as per schedule. Cont f/u with Uro at [facility] as per schedule. Cont f/u with Derm as per schedule. Cont f/u with Ophtho at [facility] as per schedule. Cont f/u with Neuro at [facility] as per schedule. Pt to f/u with them for driving recommendations. Cont f/u with GI at [facility] as per schedule. Advised pt to do EGK/testosterone check; but pt declined. Advised to refer to [facility]; but pt declined. HM: Colonoscopy - 09/19, polyp +. Cont f/u with GI as per schedule (5 yrs). AAA - 03/21/22, normal. Tdap - 02/06/22. Flu - Pt declined. Pneumo - Pt declined. Shingrix, RSV - At pharmacy/HD. F/u in 2 months. Annual labs, LDCT chest in 03/26. [email or web address] Not available 01/18/2025 10:50:10 03/23/2025 03/23/2025 69 yo M with - WELL ADULT VISIT - HTG, uncontrolled - HLD - A FIB - DM II - INSOMNIA - HTN - CKD II/III, Stable - LT KIDNEY STONE (7 mm & 2 mm) - BPH - ED - LT ROTATOR CUFF TEAR, complete - B/L SHOULDER PAIN, chronic - SEIZURE DISORDER - MULTIPLE SKIN LESIONS ON BACK - SMOKER (Cigars) - FH OF CVD - H/O VIT B12 DEFICIENCY - H/O LEUKOCYTOSIS HbA1C: 6.0(04/07/18) - 6.2(08/16/18) - 6.2(10/13/18) - 6.5(04/21/19) - 6.4(08/29/20) - 6.0(12/20/20) - 6.3(02/09/23) - 5.5(02/18/24) - 6.0(01/04/25) Annual labs: 02/18/24. NM perfusion scan: 04/17/23. LDCT chest: 04/13/23. 2-D echo: 03/12/23. US carotid duplex: 03/12/23. Annual labs: 02/09/23. X-ray KUB: 08/18/22. CT A&P wo: 08/16/22. MRI Lt shoulder wo: 05/13/22. LDCT chest: 03/23/22. US AA: 03/21/22. X-ray b/l shoulders: 02/24/22. CXR: 02/24/22. Annual labs: 02/06/22. Annual labs: 08/29/20. CT A&P w: 08/20/20. CT A&P wo: 06/10/19. US scrotum: 06/10/19. CT A&P wo: 05/18/19. X-ray L-spine: 05/18/19. US kidney: 04/19/18. CXR: 04/19/18. Annual labs: 04/07/18. D/w pt about his findings, recent labs & imagines and further plan of care. Will do routine labs, LDCT chest. Will refer pt to [facility] and GI. All meds verified with pt. Meds as directed. Diet and exercise explained in detail. BP diary education given and advised to call us if any concerns. Pt is currently smoking cigars about 2-3 cigars per day. Encouraged pt to quit smoking. F/u with [facility] as per schedule. Cont f/u with EP at [facility] as per schedule. Cont f/u with Cardio as per schedule. Cont f/u with Ortho at as per schedule. Cont f/u with Uro at [facility] as per schedule. Cont f/u with Derm as per schedule. Cont f/u with Ophtho at [facility] as per schedule. Cont f/u with Neuro at [facility] as per schedule. Pt to f/u with them for driving recommendations. Cont f/u with GI at [facility] as per schedule. HM: Colonoscopy - 09/19, polyp +. Cont f/u with GI as per schedule (5 yrs). AAA - 03/21/22, normal. Tdap - 02/06/22. Flu - Pt declined. Pneumo - Pt declined. Shingrix, RSV - At pharmacy/HD. F/u in 2-3 weeks. Annual labs, LDCT chest in 03/27. Not available 03/23/2025 09:34:40 Plan of Treatment Reminders Order Date Submit Date Provider Last Modified By Organization Details Last Modified Time Details Appointments Follow Up 15 2024 08:15A M Sher Arndt MD Not available Not available Not available Lab urinalysi s complete, reflex culture 2024 025 [email or web address] [facility] ([facility]), [address] [place], [address], 03/30/2025 11:12:37 CBC w/ auto diff 2024 025 ANNMARIE [facility] (Lab), [address] [place], [address], 03/24/2025 14:43:48 CMP, serum or plasma [address] (Lab), [address] [place], [address], 03/30/2025 11:12:37 lipid panel, serum 2024 025 [email or web address] [facility] (Lab), [address] [place], [address], 03/23/2025 09:24:45 TSH, serum or plasma [address] (Lab), [address] [place], [address], 03/30/2025 11:12:37 vitamin B12 + folate, serum or blood [address] (Lab), [address] [place], [address], 03/30/2025 11:12:37 PSA, serum or plasma [address] (Lab), [address] [place], [address], 03/30/2025 11:12:38 vitamin D, 25-hydrox y, total, serum [address] (Lab), [address] [place], [address], 03/30/2025 11:12:37 magnesium , serum or plasma [address] (Lab), [address] [place], [address], 03/30/2025 11:12:38 glycohemo globin, total, blood [address] (Lab), [address] [place], [address], 03/23/2025 12:58:03 microalbu min, urine [address] (Lab), [address] [place], [address], 03/23/2025 12:58:39 lipid panel, serum [address] (Lab), [address] [place], [address], 01/04/2025 09:25:44 glycohemo globin, total, blood [address] (Lab), [address] [place], [address], 01/04/2025 09:26:06 lipid panel, serum 2023 024 [email or web address] [facility] (Lab), [address] [place], [address], 06/23/2024 14:40:04 glycohemo globin, total, blood 2023 024 [email or web address] [facility] (Lab), [address] [place], [address], 05/31/2024 08:03:40 Referral gastroent erologist referral - Please call patient to schedule an appointme nt. Thank you. 2024 025 VY maurice MD, [address], [address], [place], [address], 03/28/2025 21:30:43 podiatris t referral - Please call patient to schedule an appointme nt. Thank you. 2024 ANNMARIE Tran DPM, [address] [facility], [address], [place], [address], 03/23/2025 17:48:34 Procedures None recorded. Surgeries None recorded. Imaging LDCT, chest, for lung cancer screening - Please call patient to schedule. 2024 VY [facility], [address], [address], [place], [address], 03/23/2025 10:05:27 Medication Orders fenofibra te 54 mg tablet 2024 025 [facility] #[id number], [address], [place], [id number], 03/23/2025 09:24:21 lisinopri l 10 mg tablet 2024 025 [facility] #35611, [address], [place], [id number], 03/23/2025 09:24:27 atorvasta tin 40 mg tablet 2024 025 [facility] #32419, [address], [place], [id number], 03/23/2025 09:24:24 metformin ER 500 mg tablet,ex tended release 24 hr 2024 025 [facility] #[id number], [address], [place], [id number], 03/23/2025 09:24:29 fenofibra te 54 mg tablet 2024 025 [facility] #92991, [address], [place], [id number], 01/18/2025 10:44:15 lisinopri l 10 mg tablet 2024 025 [facility] #[id number], [address] [facility], [place], [place], [id number], 01/18/2025 10:44:19 ergocalci ferol (vitamin D2) 1,250 mcg (50,000 unit) capsule 2024 025 [facility] #62482, [address] [facility], [place], [place], [id number], 01/18/2025 10:44:18 metformin ER 500 mg tablet,ex tended release 24 hr 2024 025 [facility] #29781, [address] [facility], [place], [place], [id number], 01/18/2025 10:44:18 atorvasta tin 40 mg tablet 2024 025 [facility] #37387, [address] [facility], [place], [place], [id number], 01/18/2025 10:44:17 Vascepa 1 gram capsule 2024 025 [facility] #09561, [address], [place], [id number], 12/15/2024 10:27:41 lisinopri l 10 mg tablet 2024 025 [facility] #95416, [address], [place], [id number], 12/15/2024 10:27:43 ergocalci ferol (vitamin D2) 1,250 mcg (50,000 unit) capsule 2024 025 [facility] #79263, [address], [place], [place], [id number], 12/15/2024 10:27:38 metformin ER 500 mg tablet,ex tended release 24 hr 2024 025 [facility] #57831, [address], [place], [place], [id number], 12/15/2024 10:27:41 atorvasta tin 40 mg tablet 2024 025 [facility] #93157, [address] [facility], [place], [place], [id number], 12/15/2024 10:27:44 Vascepa 1 gram capsule 2023 024 [facility] #96626, [address] [facility], [place], [place], [id number], 03/07/2024 15:44:53 lisinopri l 10 mg tablet 2023 024 [facility] #56157, [address] [facility], [place], [place], [id number], 03/07/2024 15:44:55 atorvasta tin 40 mg tablet 2023 024 [facility] #59534, [address] [facility], [place], [place], [id number], 03/07/2024 15:44:57 ergocalci ferol (vitamin D2) 1,250 mcg (50,000 unit) capsule 2023 024 [facility] #85272, [address] [facility], [place], [place], [id number], 03/07/2024 15:44:55 metformin ER 500 mg tablet,ex tended release 24 hr 2023 024 [facility] #[id number], [address] [facility], [place], [place], [id number], 03/07/2024 15:44:56 Patient TargetsNo targets recorded. Patient Instructions Encounter Date Encounter Id Patient Instructions Last Modified By Organization Details Last Modified Time 03/07/2024 [id number] dementia rating scale-2* ANNMARIE Not available 03/07/2024 16:53:13 multi-dimensiona l health assessment questionnaire* Not available 03/07/2024 15:44:47 Personalized a lt Plan and Screening Recommendations Advance Directives - Do you have one? No You have indicated that you are capable of preparing your advance care directive I recommend consulting with an Licensed Plumber, family member, or friend to assist you. I have no recommedations. Advance Directives - Do we have your advance directive on file in your health record? Primary Prevention/Interven tion (prevents or decreases the chance of common diseases from occurring) Smoking Risk: Non Smoker Recommend lung cancer screening with low dose CT scan of the chest Alcohol Misuse Screening: Negative Refer to attached alcohol cessation handout Refer to attached handout and prescription will be sent to pharmacy Decrease alcohol intake to 2 or less servings per day Continue to consider stopping alcohol and call if we can assist you Recommend referral for alcohol counseling/rehabili tation I have no recommedations. Weight: Appropriate continue your current weight loss efforts Physical activity: Appropriate physical activity minimum of 10-20 minutes of activity that causes mild breathlessness/day minimum of 20-30 minutes activity that causes mild breathlessness/day minimum of 30-40 minutes of activity that causes mild breathlessness/day decrease sitting time to no more than 5hr/day I have no recommedations. Nutrition: Average Refer to attached handout Heart-Healthy Diet: After Your Visit Refer to attached handout DASH Diet: After Your Visit Recommend consultation with a concierge Eat Heart Healthy Diet Fall Risk (screened today): Low Refer to attached handout Preventing Falls: After your Visit Recommend regular use of cane or walker Referral for physical therapy Referral for home health nurse evaluation Referral for home health nurse evaluation with physical therapy I have no recommedations. Vaccines Pneumococcal: No further needed Influenza: Your next one in the fall of this year Chronic Disease Risks Stroke: Intermediate Risk Active diagnosis, Continue current treatment plan Heart Attack: Intermediate Risk Active diagnosis, Continue current treatment plan Clogging of the Arteries: Intermediate Risk Active diagnosis, Continue current treatment plan Diabetes: Intermediate Risk Active diagnosis, Continue current treatment plan Secondary Prevention/Interven tion (detects treatable diseases before they may cause symptoms, disability, or ) Prostate Cancer Screening: Your next PSA in: No PSA screening necessary PSA recommended today Colon Cancer Screening: Colonoscopy In: Ordered Recomme nded Recommended today, but you have declined No screening necessary Recommend ed today Date Screening Last Performed: Eye Disease Screening: Ordered Recommended today Recommended today, but you have declined No Eye exam necessary Your next exam in: Dementia Risk: Low I have no recommendations Depression Screening: Negative Recommend additional evaluation and/or treatment as noted above Recommend follow appointment to further evaluate Recommend Behavioral Health referral Active diagnosis, Continue current treatment plan I have no recommedations. 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 Thank you. Referring Physician: Sher Arndt [facility] Medicine, Encounter Date: 03/23/2025 [facility] Referral for Type 2 diabetes mellitus without complication Please call patient to schedule an appointment. Thank you. Referring Physician: Sher Arndt [facility] Medicine, Encounter Date: 03/23/2025 Results Created Date Observation Date Name Description Value Unit Range Abnormal Flag Note LastModifiedBy Organization Detail LastModifiedTime 02/18/20 24 02/18/2024 CBC/C OMPLE TE BLD COUNT W/DIF F white blood cells 8.7 x10'3 /uL 4.2-10 .8 Not Available [facility] (Lab) [address] [place], [address], 02/18/2024 13:46:31 02/18/20 24 02/18/2024 CBC/C OMPLE TE BLD COUNT W/DIF F red blood cells 4.40 x10'6 /uL 4.10-5 .80 Not Available [facility] (Lab) [address] [place], [address], 02/18/2024 13:46:31 02/18/20 24 02/18/2024 CBC/C OMPLE TE BLD COUNT W/DIF F hemoglobin 13.9 g/dL 13.2-1 7.0 Not Available [facility] (Lab) [address] [place], [address], 02/18/2024 13:46:31 02/18/20 24 02/18/2024 CBC/C OMPLE TE BLD COUNT W/DIF F hematocrit 41.4 % 39.3-5 0.0 Not Available [facility] (Lab) [address] [place], [address], 02/18/2024 13:46:31 02/18/20 24 02/18/2024 CBC/C OMPLE TE BLD COUNT W/DIF F mean red cell volume 94.1 fL 80.0-9 7.0 Not Available [facility] (Lab) [address] [place], [address], 02/18/2024 13:46:31 02/18/20 24 02/18/2024 CBC/C OMPLE TE BLD COUNT W/DIF F mean red cell hemoglobin 31.6 pg 27.0-3 3.0 Not Available [facility] (Lab) [address] [place], [address], 02/18/2024 13:46:31 02/18/20 24 02/18/2024 CBC/C OMPLE TE BLD COUNT W/DIF F mean RBC HGB concentratio n 33.6 g/dL 31.0-3 6.0 Not Available [facility] (Lab) [address] [place], [address], 02/18/2024 13:46:31 02/18/20 24 02/18/2024 CBC/C OMPLE TE BLD COUNT W/DIF F red cell distribution width 14.3 % 11.8-1 5.5 Not Available [facility] (Lab) [address] [place], [address], 02/18/2024 13:46:31 02/18/20 24 02/18/2024 CBC/C OMPLE TE BLD COUNT W/DIF F platelets 286 x10'3 /uL 150-40 0 Not Available [facility] (Lab) [address] [place], [address], 02/18/2024 13:46:31 02/18/20 24 02/18/2024 CBC/C OMPLE TE BLD COUNT W/DIF F mean platelet volume 10.5 fL 9.0-12 .4 Not Available [facility] (Lab) [address] [place], [address], 02/18/2024 13:46:31 02/18/20 24 02/18/2024 CBC/C OMPLE TE BLD COUNT W/DIF F neutrophils 51.4 % 39.0-7 2.0 Not Available [facility] (Lab) [address] [place], [address], 02/18/2024 13:46:31 02/18/20 24 02/18/2024 CBC/C OMPLE TE BLD COUNT W/DIF F lymphocytes 30.4 % 16.0-4 7.0 Not Available [facility] (Lab) [address] [place], [address], 02/18/2024 13:46:31 02/18/20 24 02/18/2024 CBC/C OMPLE TE BLD COUNT W/DIF F monocytes 7.2 % 5.0-12 .0 Not Available [facility] (Lab) [address] [place], [address], 02/18/2024 13:46:31 02/18/20 24 02/18/2024 CBC/C OMPLE TE BLD COUNT W/DIF F eosinophils 9.7 % 1.0-7. 0 high Not Available [facility] (Lab) [address] [place], [address], 02/18/2024 13:46:31 02/18/20 24 02/18/2024 CBC/C OMPLE TE BLD COUNT W/DIF F basophils 0.8 % 0.0-2. 0 Not Available [facility] (Lab) [address] [place], [address], 02/18/2024 13:46:31 02/18/20 24 02/18/2024 CBC/C OMPLE TE BLD COUNT W/DIF F immature granulocytes 0.5 % 0.00-0 .50 Not Available [facility] (Lab) [address] [place], [address], 02/18/2024 13:46:31 02/18/20 24 02/18/2024 CBC/C OMPLE TE BLD COUNT W/DIF F neutrophils, absolute count 4.46 x10'3 /uL 1.5-8. 0 Not Available [facility] (Lab) [address] [place], [address], 02/18/2024 13:46:31 02/18/20 24 02/18/2024 CBC/C OMPLE TE BLD COUNT W/DIF F lymphocytes, absolute count 2.63 x10'3 /uL 1.07-3 .43 Not Available [facility] (Lab) [address] [place], [address], 02/18/2024 13:46:31 02/18/20 24 02/18/2024 CBC/C OMPLE TE BLD COUNT W/DIF F monocytes, absolute count 0.62 x10'3 /uL 0.29-0 .99 Not Available [facility] (Lab) [address] [place], [address], 02/18/2024 13:46:31 02/18/20 24 02/18/2024 CBC/C OMPLE TE BLD COUNT W/DIF F eosinophils, absolute count 0.84 x10'3 /uL 0.02-0 .53 high Not Available [facility] (Lab) [address] [place], [address], 02/18/2024 13:46:31 02/18/20 24 02/18/2024 CBC/C OMPLE TE BLD COUNT W/DIF F basophils, absolute count 0.07 x10'3 /uL 0.01-0 .08 Not Available [facility] (Lab) [address] [place], [address], 02/18/2024 13:46:31 02/18/20 24 02/18/2024 CBC/C OMPLE TE BLD COUNT W/DIF F immature granulocytes ,absolute 0.04 x10'3 /uL 0.00-0 .05 Not Available [facility] (Lab) [address] [place], [address], 02/18/2024 13:46:31 02/18/20 24 02/18/2024 CBC/C OMPLE TE BLD COUNT W/DIF F nucleated red blood cells 0.0 % -0 Not Available [facility] (Lab) [address] [place], [address], 02/18/2024 13:46:31 02/18/20 24 02/18/2024 CBC/C OMPLE TE BLD COUNT W/DIF F NRBC# 0.00 x10'3 /uL Not Available [facility] (Lab) [address] [place], [address], 02/18/2024 13:46:31 02/18/20 24 02/18/2024 URINA LYSIS COMPL ETE/I RIS W/RFX color YELLOW Not Available [facility] (Lab) [address] [place], [address], 02/18/2024 13:47:02 02/18/20 24 02/18/2024 URINA LYSIS COMPL ETE/I RIS W/RFX appear TURBID abnormal Not Available [facility] (Lab) [address] [place], [address], 02/18/2024 13:47:02 02/18/20 24 02/18/2024 URINA LYSIS COMPL ETE/I RIS W/RFX specific gravity 1.022 1.001- 1.030 Not Available [facility] (Lab) [address] [place], [address], 02/18/2024 13:47:02 02/18/20 24 02/18/2024 URINA LYSIS COMPL ETE/I RIS W/RFX pH 5.5 pH_un its 5.0-9. 0 Not Available [facility] (Lab) [address] [place], [address], 02/18/2024 13:47:02 02/18/20 24 02/18/2024 URINA LYSIS COMPL ETE/I RIS W/RFX leukocytes NEGATI VE matty/u L negati ve- Not Available [facility] (Lab) [address] [place], [address], 02/18/2024 13:47:02 02/18/20 24 02/18/2024 URINA LYSIS COMPL ETE/I RIS W/RFX nitrite NEGATI VE negati ve- Not Available [facility] (Lab) [address] [place], [address], 02/18/2024 13:47:02 02/18/20 24 02/18/2024 URINA LYSIS COMPL ETE/I RIS W/RFX protein 10 mg/dL negati ve- abnormal Not Available [facility] (Lab) [address] [place], [address], 02/18/2024 13:47:02 02/18/20 24 02/18/2024 URINA LYSIS COMPL ETE/I RIS W/RFX glucose NORMAL mg/dL normal - Not Available [facility] (Lab) [address] [place], [address], 02/18/2024 13:47:02 02/18/20 24 02/18/2024 URINA LYSIS COMPL ETE/I RIS W/RFX ketones NEGATI VE mg/dL negati ve- Not Available [facility] (Lab) [address] [place], [address], 02/18/2024 13:47:02 02/18/20 24 02/18/2024 URINA LYSIS COMPL ETE/I RIS W/RFX urobilinogen NORMAL mg/dL normal - Not Available [facility] (Lab) [address] [place], [address], 02/18/2024 13:47:02 02/18/20 24 02/18/2024 URINA LYSIS COMPL ETE/I RIS W/RFX bilirubin NEGATI VE mg/dL negati ve- Not Available [facility] (Lab) [address] [place], [address], 02/18/2024 13:47:02 02/18/20 24 02/18/2024 URINA LYSIS COMPL ETE/I RIS W/RFX blood 0.03 mg/dL negati ve- abnormal Not Available [facility] (Lab) [address] [place], [address], 02/18/2024 13:47:02 02/18/20 24 02/18/2024 URINA LYSIS COMPL ETE/I RIS W/RFX white blood cells 0-8 /i??h pfi?? 0-8 Not Available [facility] (Lab) [address] [place], [address], 02/18/2024 13:47:02 02/18/20 24 02/18/2024 URINA LYSIS COMPL ETE/I RIS W/RFX red blood cells 5-10 /i??h pfi?? 0-4 abnormal Not Available [facility] (Lab) [address] [place], [address], 02/18/2024 13:47:02 02/18/20 24 02/18/2024 URINA LYSIS COMPL ETE/I RIS W/RFX bacteria NONE Not Available [facility] (Lab) [address] [place], [address], 02/18/2024 13:47:02 02/18/20 24 02/18/2024 URINA LYSIS COMPL ETE/I RIS W/RFX mucous MANY /i??l pfi?? abnormal Not Available [facility] (Lab) [address] [place], [address], 02/18/2024 13:47:02 02/18/20 24 02/18/2024 URINA LYSIS COMPL ETE/I RIS W/RFX squamous epithelial NONE /i??l pfi?? abnormal Not Available [facility] (Lab) [address] [place], [address], 02/18/2024 13:47:02 02/18/20 24 02/18/2024 MICRO ALBUM IN RANDO M URINE microalbumin , urine 30.2 mg/L 0.0-16 .6 high Not Available [facility] (Lab) [address] [place], [address], 02/18/2024 14:05:49 02/18/20 24 02/18/2024 LIPID PANEL cholesterol 261 mg/dL 140-19 9 high NIH JUANY NSUS RECOM MENDA TION FOR PRAKASH STERO L: ADULT CHILD LOW RISK: <200 <170 BORDE RLINE : <200- 239 ----- HIGH RISK: >240 >200 Not Available [facility] (Lab) [address] [place], [address], 02/18/2024 14:13:04 02/18/20 24 02/18/2024 LIPID PANEL triglyceride s 628 mg/dL 0-150 high NIH JUANY NSUS REPOR T RECOM MENDA TION FOR TRIGL YCERI DENIS: ADULT CHILD LOW RISK: <150 ----- BODER LINE: 150-1 99 ----- HIGH RISK: >200 ----- Not Available [facility] (Lab) [address] [place], [address], 02/18/2024 14:13:04 02/18/20 24 02/18/2024 LIPID PANEL HDL cholesterol 40 mg/dL 40- Not Available [facility] (Lab) [address] [place], [address], 02/18/2024 14:13:04 02/18/20 24 02/18/2024 TSH W/REF CRIS FT4 TSH with reflex free T4 1.530 uIU/m L 0.465- 4.680 Not Available [facility] (Lab) [address] [place], [address], 02/18/2024 14:13:26 02/18/20 24 02/18/2024 PSA SCREE N PSA medicare screen 1.63 NG/mL 0.00-4 .00 Not Available [facility] (Lab) [address] [place], [address], 02/18/2024 14:13:31 02/18/20 24 02/18/2024 MAGNE SIUM magnesium 1.8 mg/dL 1.6-2. 3 Not Available [facility] (Lab) [address] [place], [address], 02/18/2024 14:17:30 02/18/20 24 02/18/2024 COMPR EHENS CARLIE METAB OLIC PANEL sodium 139 mmol/ L 137-14 5 Not Available [facility] (Lab) [address] [place], [address], 02/18/2024 14:26:37 02/18/20 24 02/18/2024 COMPR EHENS CARLIE METAB OLIC PANEL potassium 4.6 mmol/ L 3.5-5. 1 Not Available [facility] (Lab) [address] [place], [address], 02/18/2024 14:26:37 02/18/20 24 02/18/2024 COMPR EHENS CARLIE METAB OLIC PANEL chloride 107 mmol/ L 98-107 Not Available [facility] (Lab) [address] [place], [address], 02/18/2024 14:26:37 02/18/20 24 02/18/2024 COMPR EHENS CARLIE METAB OLIC PANEL carbon dioxide 24 mmol/ L 22-30 Not Available [facility] (Lab) [address] [place], [address], 02/18/2024 14:26:37 02/18/20 24 02/18/2024 COMPR EHENS CARLIE METAB OLIC PANEL anion gap 12.6 mmol/ L 14-22 low Not Available [facility] (Lab) [address] [place], [address], 02/18/2024 14:26:37 02/18/20 24 02/18/2024 COMPR EHENS CARLIE METAB OLIC PANEL glucose 107 mg/dL 70-99 high Not Available [facility] (Lab) [address] [place], [address], 02/18/2024 14:26:37 02/18/20 24 02/18/2024 COMPR EHENS CARLIE METAB OLIC PANEL BUN 16 mg/dL 8-19 Not Available [facility] (Lab) [address] [place], [address], 02/18/2024 14:26:37 02/18/20 24 02/18/2024 COMPR EHENS CARLIE METAB OLIC PANEL creatinine 1.3 mg/dL 0.66-1 .25 high Not Available [facility] (Lab) [address] [place], [address], 02/18/2024 14:26:37 02/18/20 24 02/18/2024 COMPR EHENS CARLIE METAB OLIC PANEL GFR 55 Refer ence Range : [facility] GFR Healt hy Adult : >60 mL/mi n/1.7 3 m2 Chron ic Kidne y Disea se: 15-60 mL/mi n/1.7 3 m2 Kidne y Failu re: <15/m L/min /1.73 m2 www.n iddk. nih.g ov The MDRD study equat ion has not been valid ated in child sascha <18 years of age; pregn ant women ; the elder ly >85 years of age; or in some racia l or ethni c subgr oups, such as Hispa nics. Outsi de the valid ated sofia eters , estim ated GFR is less accur ate, requi ring clini gabriela judgm ent on a case- by-ca se basis . Clini gabriela inter preta tion for other races and ages must be made by the clini jose. The MDRD study equat ion has not been valid ated for the evalu ation of serum creat inine relat ed to nutri amilcar l statu s or medic ation usage . For perso ns <18 years of age, a pedia tric GFR calcu lator is avail able on the [facility] websi te: https ://cornell jacobs.cecily nayak/cleo arvizuess ional s/kdo qi/gf r_cal culat or Not Available [facility] (Lab) [address] [place], [address], 02/18/2024 14:26:37 02/18/20 24 02/18/2024 COMPR EHENS CARLIE METAB OLIC PANEL alkaline phosphatase 56 U/L 38-126 Not Available [facility] (Lab) [address] [place], [address], 02/18/2024 14:26:37 02/18/20 24 02/18/2024 COMPR EHENS CARLIE METAB OLIC PANEL alanine aminotransfe rase 21 U/L 0-50 Not Available [facility] (Lab) [address] [place], [address], 02/18/2024 14:26:37 02/18/20 24 02/18/2024 COMPR EHENS CARLIE METAB OLIC PANEL aspartate aminotransfe rase 30 U/L 15-46 Not Available [facility] (Lab) [address] [place], [address], 02/18/2024 14:26:37 02/18/20 24 02/18/2024 COMPR EHENS CARLIE METAB OLIC PANEL bilirubin, total 0.6 mg/dL 0.20-1 .30 Not Available [facility] (Lab) [address] [place], [address], 02/18/2024 14:26:37 02/18/20 24 02/18/2024 COMPR EHENS CARLIE METAB OLIC PANEL calcium 9.5 mg/dL 8.4-10 .2 Not Available [facility] (Lab) [address] [place], [address], 02/18/2024 14:26:37 02/18/20 24 02/18/2024 COMPR EHENS CARLIE METAB OLIC PANEL total protein 7.1 g/dL 6.3-8. 2 Not Available [facility] (Lab) [address] [place], [address], 02/18/2024 14:26:37 02/18/20 24 02/18/2024 COMPR EHENS CARLIE METAB OLIC PANEL albumin 4.4 g/dL 3.0-4. 4 Not Available [facility] (Lab) [address] [place], [address], 02/18/2024 14:26:37 02/18/20 24 02/18/2024 COMPR EHENS CARLIE METAB OLIC PANEL globulin 2.7 g/dL 2.6-4. 2 Not Available [facility] (Lab) [address] [place], [address], 02/18/2024 14:26:37 02/18/20 24 02/18/2024 COMPR EHENS CARLIE METAB OLIC PANEL A/G ratio 1.6 ratio 1.0-2. 0 Not Available [facility] (Lab) [address] [place], [address], 02/18/2024 14:26:37 02/18/20 24 02/18/2024 VITAM IN D 25-HY DROXY vd25oh 20.5 NG/mL 30-100 low Vitam in D Statu s: Defic ient: <20 ng/mL Insuf ficie nt: 20-29 ng/mL Suffi cient : 30-10 0 ng/mL Not Available [facility] (Lab) [address] [place], [address], 02/18/2024 15:07:52 02/18/20 24 02/18/2024 VITAM IN B12 (SUJATA FRANKI ) vb12 748 pg/mL 239-93 1 Not Available [facility] (Lab) [address] [place], [address], 02/18/2024 14:51:38 02/18/20 24 02/18/2024 FOLAT E, SERUM /PLAS MA folate >20.0 NG/mL 2.76-2 0.0 Not Available [facility] (Lab) [address] [place], [address], 02/18/2024 14:51:42 02/18/20 24 02/18/2024 HEMOG LOBIN A1C HA1C 5.5 % 4.0-6. 0 Diabe kenneth Scree avel Crite emmie: <5.7% Consi stent with absen ce of diabe kenneth 5.7-6 .4% Consi stent with incre ased risk for diabe kenneth (pred iabet es) >OR=6 .5% Consi stent with diabe kenneth REFER ENCE: Diabe kenneth Care 2016, 39(Curry ppl.1 ):s13 -s22 Not Available [facility] (Lab) [address] [place], [address], 02/18/2024 21:15:50 Result Notes None recorded. Problems Name Problem SNOMED Code Status Onset Date Resolution Date Notes Provider Name and Address Organization Details Recorded Time Impacted cerumen of harrya l ears 55293347245 68719 Active 2019 Not Available [facility] 3 20:07:29 Leukocyt osis 951984299 Active 2019 Not Available [facility] 3 20:07:29 Bilatera l shoulder joint pain 77216275566 320502 Active 2021 Not Available [facility] 3 20:07:29 Seizure disorder 755660921 Active 2017 Not Available [facility] 3 20:07:29 Insomnia 215851802 Active 2020 Not Available [facility] 3 20:07:29 Partial thicknes s rotator cuff tear 584955555 Active 2021 Not Available [facility] 3 20:07:29 Full thicknes s rotator cuff tear 144859434 Active 2021 Not Available [facility] 3 20:07:29 Full thicknes s rotator cuff tear 666961783 Active 2021 Not Available [facility] 3 20:07:29 Primary hypertri glycerid emia 343852786 Active 2017 Not Available [facility] 3 20:07:30 Benign prostati c hyperpla imer without outflow obstruct ion 488904604 Active 2019 Not Available [facility] 3 20:07:30 Degenera tion of lumbar interver tebral disc 87157902 Active 2018 Not Available [facility] 3 20:07:30 Shoulder joint pain 176103522 Active 2017 Not Available [facility] 3 20:07:30 Left lower quadrant pain 605788446 Active 2019 Not Available [facility] 3 20:07:30 Type 2 diabetes mellitus without complica tion 777423827 Active 2018 Not Available [facility] 3 20:07:30 Vitamin D deficien cy 10344488 Active 2017 Not Available [facility] 3 20:07:30 Seasonal allergic rhinitis 712566207 Active 2020 Not Available [facility] 3 20:07:30 Hyperten sive disorder 62943069 Active 2017 Not Available [facility] 3 20:07:30 Multiple atypical melanocy tic nevi 513223814 Active 2017 Not Available [facility] 3 20:07:30 Chronic kidney disease stage 3 359528034 Active 2017 Not Available [facility] 3 20:07:30 Complain ing of erectile dysfunct ion Active 2017 Not Available [facility] 3 20:07:30 Hyperlip idemia 60395875 Active 2017 Not Available [facility] 3 20:07:30 Vitamin B12 deficien cy (non anemic) 55447428 Active 2019 Not Available [facility] 3 20:07:31 Prediabe kenneth 790183982 Completed 201708/23/2020 Not Available [facility] 3 20:07:31 Seizure 69466069 Completed 200507/15/2018 GRANDMA Not Available [facility] 3 20:07:31 Kidney stone 04430558 Active 2017 Not Available [facility] 3 20:07:31 Family history of Cardiova scular disease 969412801 Active 2022 Sher Arndt MD [address], [address], [place], [address] , [employer] [facility] [employer] 3 09:19:13 Hypertri glycerid emia 672231649 Active 2022 Sher Arndt MD [address], [address], [place], [address] , [facility] [employer] [facility] 3 09:40:24 Atrial fibrilla tion 85801300 Active 2022 Sher Arndt MD [address], [place], [address] , [employer] 09:28:09 Cigar smoker 49096209 Active 2024 Sher Arndt MD [address], [place], [address] , [employer] 10:50:01 Cigarett e smoker 17953272 Active 2024 Sher Arndt MD [address], [place], [address] , [employer] 14:35:27 Problem Notes None recorded. Procedures Surgical History Date Name Laterality Status Provider Name and Address Organization Details Recorded Time 03/23/20 25 Smoking Cessation completed Sher Arndt MD [address], [place], [address], [employer] 03/23/2025 09:27:40 12/15/19 25 Smoking Cessation completed MD [address], [place], [address], [employer] 12/15/2024 10:28:41 03/07/20 24 Medicare Wellness CPT Code, subsequent completed January FIONA Mata [employer] 03/07/2024 15:25:38 02/18/20 24 Smoking Cessation completed MD [address], [place], [address], [employer] 02/18/2024 09:35:49 02/10/20 23 Smoking Cessation completed MD [address], [place], [address], [employer] 02/09/2023 09:09:37 10/02/20 20 Hernia Surgery completed Not Available [facility] 12/31 20:06:42 09/27/20 18 colonoscopy completed Not Available [facility] 01/01/20 20:06:42 inflation of Eustachian tube using balloon completed Not Available [facility] 12/31/2022 20:06:42 Myringotomy Tube Placement completed Not Available [facility] 12/31/2022 20:06:42 Imaging Results None recorded. Procedure Notes None recorded. Medical Equipment None Reported. Allergies Allergen ID Allergen Name Allergen Category Reaction Reaction Severity Criticality Documentation Date Start Date Code Code System Note Provider Name and Address Organization Details Recorded Time 11895 Product containin g penicilli n (product) medicatio n Not available Not available Not available 12/31/2022 45442 8001 SNOMED Not Available [facility] 3 20:08:53 Medications Name Sig Start Date Stop Date Status Note LastModified by Organization Details LastModified Time cyclobenza radha 10 mg tablet Take 1 tablet every 12 hours by oral route as needed for 30 days. active Use as needed. Not Available Not Available Not Available atorvastat in 40 mg tablet Take 1 tablet every day by oral route at bedtime for 90 days. 2024 active Not Available Not Available Not Avai lable prednisone 10 mg tablet Take 1 tablet every day by oral route as directed for 7 days. 05/29 completed Not Available Not Available Not Available atorvastat in 20 mg tablet TAKE 1 TABLET BY MOUTH EVERY DAY AT BEDTIME 12/15 completed Not Available Not Available Not Available naproxen 375 mg tablet TK 1 T PO BID PRF PAIN 08/23 completed Not Available Not Available Not Available clindamyci n HCl 300 mg capsule 02/17 completed Not Available Not Available Not Available sildenafil 50 mg tablet Take 1 tablet as needed by oral route as directed for 10 days. 04/23 completed Not Available Not Available Not Available atorvastat in 10 mg tablet TK 1 T PO QD HS 08/19 completed Not Available Not Available Not Available azithromyc in 250 mg tablet TAKE 2 TABLETS (500 MG) BY ORAL ROUTE ONCE DAILY FOR 1 DAY THEN 1 TABLET (250 MG) BY ORAL ROUTE ONCE DAILY FOR 4 DAYS active Not Available Not Available No t Available metoprolol succinate ER 50 mg tablet,ext ended release 24 hr active Not Available Not Available Not Available cephalexin 250 mg capsule TAKE 1 CAPSULE BY MOUTH EVERY 6 HOURS FOR 7 DAYS 09/11 completed Not Available Not Available Not Available hydrocodon e 5 mg-acetami nophen 325 mg tablet TAKE 1 TABLET BY MOUTH EVERY 6 HOURS NEEDED FOR PAIN 09/11 completed Not Available Not Available Not Available lisinopril 20 mg tablet TAKE 1/2 TABLET BY MOUTH DAILY PER PROVIDER INSTRUCT ION 02/17 completed Not Available Not Available Not Available ondansetro n HCl 4 mg tablet 02/09 completed Not Available Not Available Not Available famotidine 40 mg tablet 40 mg by oral route. 2021 active Not Available Not Available Not Avai lable Debrox 6.5 % ear drops INSTILL 4 DROPS INTO AFFECTED EAR(S) BY OTIC ROUTE 2 TIMES PER DAY active Not Available Not Available No t Available Zyrtec 10 mg tablet Take 1 tablet every day by oral route. 2017 active OTC Not Available Not Available Not Avai lable metronidaz ole 500 mg tablet Take 1 tablet every 8 hours by oral route for 7 days. active Not Available Not Available No t Available oxcarbazep ine 300 mg tablet 04/06 completed Not Available Not Available Not Available ciprofloxa edis 500 mg tablet Take 1 tablet every 12 hours by oral route for 7 days. active Not Available Not Available No t Available sulfametho xazole 800 mg-trimeth oprim 160 mg tablet TAKE 1 TABLET BY MOUTH TWICE DAILY 09/11 completed Not Available Not Available Not Available hydrocodon e 10 mg-acetami nophen 325 mg tablet TAKE 1 TABLET BY MOUTH EVERY 6 HOURS NEEDED FOR PAIN 09/11 completed Not Available Not Available Not Available peg-electr olyte solution 420 gram oral solution 04/26 completed Not Available Not Available Not Available tramadol 50 mg tablet TAKE 1 TABLET BY MOUTH EVERY 6 HOURS NEEDED 02/09 completed Not Available Not Available Not Available ketorolac 10 mg tablet TK 1 T PO Q 8 H FOR 5 DAYS PRN 02/09 completed Not Available Not Available Not Available prednisone 10 mg tablets in a dose pack Take 1 tab by mouth, 3 times a day for 3 daysTake 1 tab by mouth 2 times a day for 2 daysTake 1 tab by mouth once a day for 1 day 05/29 completed Not Available Not Available Not Available nortriptyl ine 25 mg capsule 04/06 completed Not Available Not Available Not Available prednisolo ne acetate 1 % eye drops,susp ension 01/18 completed Not Available Not Available Not Available DOK 100 mg capsule TK 1 C PO BID. active Not Available Not Available No t Available aspirin 325 mg tablet,del ayed release 02/09 completed Not Available Not Available Not Available tamsulosin 0.4 mg capsule TAKE 1 CAPSULE BY MOUTH DAILY active Not Available Not Available No t Available dicyclomin e 20 mg tablet 04/26 completed Not Available Not Available Not Available Kenalog 10 mg/mL suspension for injection In office injectio n administ ered by the provider 02/09 completed [facility]: 0003-04 94-20 Not Available Not Available Not Available meclizine 25 mg tablet TK 1 T PO TID PRF DIZZINES S active Not Available Not Available No t Available lisinopril 10 mg tablet Take 1 tablet every day by oral route as directed for 90 days. 2024 active Not Available Not Available Not Avai lable flecainide 100 mg tablet TAKE 1 TABLET BY MOUTH EVERY 12 HOURS 01/18 completed Not Available Not Available Not Available diclofenac sodium 75 mg tablet,del ayed release Take 1 tablet every 12 hours by oral route as needed for 30 days. active Take with food, as needed. Not Available Not Available Not Available montelukas t 10 mg tablet Take 10 mg by oral route. 02/17 completed Not Available Not Available Not Available quinapril 20 mg tablet TAKE 1 TABLET BY MOUTH DAILY 02/09 completed Not Available Not Available Not Available zolpidem 5 mg tablet Take 1 tablet every day by oral route at bedtime for 15 days. active Not Available Not Available No t Available ergocalcif shaina (vitamin D2) 1,250 mcg (50,000 unit) capsule TAKE 1 CAPSULE BY MOUTH EVERY WEEK active Not Available Not Available No t Available methylpred nisolone 4 mg tablets in a dose pack FOLLOW PACKAGE [employer] NS 08/20 completed Not Available Not Available Not Available fluticason e propionate 50 mcg/actuat ion nasal spray,susp ension U 2 SPRAYS NASALLY QD active Not Available Not Available No t Available metformin ER 500 mg tablet,ext ended release 24 hr Take 1000 mg twice a day by oral route after meals for 90 days. 2024 active Not Available Not Available Not Avai lable doxycyclin e hyclate 100 mg tablet TAKE 1 TABLET BY MOUTH EVERY 12 HOURS 02/17 completed Not Available Not Available Not Available naproxen 500 mg tablet TK 1 T PO BID P 08/23 completed Not Available Not Available Not Available nabumetone 500 mg tablet Take 1 tablet every 12 hours by oral route as needed for 15 days. active Take with food, as needed only. Not Available Not Available Not Available amoxicilli n 500 mg-potassi um clavulanat e 125 mg tablet TAKE 1 TABLET BY MOUTH EVERY 8 HOURS 05/26 completed Not Available Not Available Not Available neomycin-p olymyxin-h ydrocort 3.5 mg-10,000 unit/mL-1 % ear drops,susp INSTILL 4 DROPS INTO AFFECTED EAR(S) BY OTIC ROUTE 3 TIMES PER DAY active Use into both ears, TID for next 7-10 days as directe d. Not Available Not Available Not Available Adult Low Dose Aspirin 81 mg tablet,del ayed release Take 1 tablet every day by oral route with meals for 90 days. 05/26 completed Not Available Not Available Not Available ciprofloxa edis 0.3 %-dexameth asone 0.1 % ear drops,susp ension SHAKE LIQUID AND INSTILL 4 DROPS TO AFFECTED EAR TWICE DAILY FOR 7 DAYS 05/23 completed Not Available Not Available Not Available metoprolol tartrate 25 mg tablet TAKE 1/2 TABLET BY MOUTH TWICE DAILY 12/15 completed Not Available Not Available Not Available aspirin 81MG 1 TAB PO DAILY 07/04 completed Not Available Not Available Not Available oxcarbazep ine 100MG 2 TAB PO DAILY 03/11 completed Not Available Not Available Not Available multivitam in 1 TAB PO DAILY 2017 active OTC Not Available Not Available Not Avai lable lidocaine (PF) 5 mg/mL (0.5 %) injection solution Take 60 mg by injectio n route. 02/17 completed Not Available Not Available Not Available metformin ER 500 mg 24 hr tablet,ext ended release (gastric retention) Take 2 tablets twice a day by oral route with meals for 90 days. 01/18 completed Not Available Not Available Not Available fenofibrat e 54 mg tablet Take 1 tablet every day by oral route in the morning for 90 days. 2024 active Not Available Not Available Not Avai lable Vascepa 1 gram capsule TAKE 2 CAPSULES BY MOUTH TWICE DAILY DIRECTED 2024 active Not Available Not Available Not Avai lable Eliquis 5 mg tablet TAKE 1 TABLET BY MOUTH TWICE DAILY active Not Available Not Available No t Available Farxiga 5 mg tablet Take 1 tablet every day by oral route in the morning for 90 days. 01/18 completed Not Available Not Available Not Available Vitamin B12 2000 MG 1TAB PO DAILY 2017 active OTC Not Available Not Available Not Avai lable Vitals Date Recorded Body height Body mass index (BMI) Body weight Body temperature Oxygen saturation Oxygen saturation in Arterial blood by Pulse oximetry Heart rate Systolic blood pressure Diastolic blood pressure Provider Name and Address Organization Details Last Updated DateTime 5 172.72 cm 27.9 kg/m2 28371.5 5 g 98.1 [degF] 97 % 97 % 62 /min 126 mm[Hg] 84 mm[Hg] Steffanie Chirinos RN [facility] [employer] 5 10:15:22 Date Recorded Heart rate Provider Name an d Address Organization Details Last Updated DateTime 01/18/2025 57 /min Rena Rose [address] [place] [address], [address], [place] [employer] [facility] [employer] 01/18/2025 10:39:41 Date Recorded Body height Body mass index (BMI) Body weight Body temperature Oxygen saturation Oxygen saturation in Arterial blood by Pulse oximetry Respiratory rate Systolic blood pressure Diastolic blood pressure Provider Name and Address Organization Details Last Updated DateTime 5 172.72 cm 27.8 kg/m2 90985.1 g 97.3 [degF] 97 % 97 % 20 /min 98 mm[Hg] 70 mm[Hg] Juli Medina RN [facility] [employer] 5 10:37:21 Date Recorded Body height Body mass index (BMI) Body weight Body temperature Heart rate Oxygen saturation Oxygen saturation in Arterial blood by Pulse oximetry Systolic blood pressure Diastolic blood pressure Provider Name and Address Organization Details Last Updated DateTime 4 175.26 cm 25.9 kg/m2 22997.7 6 g 98.2 [degF] 72 /min 98 % 98 % 107 mm[Hg] 61 mm[Hg] Tami Rose MA [facility] [employer] [facility] 4 15:24:23 Date Recorded Oxygen saturation Oxygen saturation in Arterial blood by Pulse oximetry Provider Name and Address Organization Details Last Updated DateTime 03/23/2025 95 % 95 % Sher Arndt MD [address] [facility] [address], [place], [address], [facility] [employer] [facility] 03/23/2025 09:33:17 Date Recorded Body height Body mass index (BMI) Body weight Body temperature Heart rate Systolic blood pressure Diastolic blood pressure Provider Name and Address Organization Details Last Updated DateTime 172.72 cm 27 kg/m2 73807.2 5 g 97.4 [degF] 69 /min 110 mm[Hg] 64 mm[Hg] Steffanie Chirinos RN [facility] [employer] [facility] 09:17:09 Social History Question Answer Notes LastModified by Organization Details LastModified Time Tobacco Smoking Status Current Some Day Smoker Steffanie Chirinos RN [facility], [facility] [employer] 03/23/2025 09:19:22 Do You Have An Advance Directive? Yes MIGRATION.[id number] Information not available 12/31/2022 Do You Wear A Helmet When Biking? No MIGRATION.030246830 Information not available 12/31/2022 Are You Blind Or Do You Have Difficulty Seeing? No MIGRATION.030345540 Information not available 12/31/2022 What Is Your Level Of Caffeine Consumption? Occasional One Cup Of Coffee Three Times A Week 2-3 Glasses Of Tea Per Day Maybe One Soda (12oz)can Diet Pepsi Per 1-2 Days [email or web address] Information not available 03/23/2025 How Much Tobacco Do You Chew? None MIGRATION.030502724 Information not available 12/31/2022 In The 14 Days Before Symptom Onset, Have You Had Close Contact With A Laboratory-conf romelia JULIENID-19 While That Case Was Ill? No MIGRATION.030827500 Information not available 12/31/2022 In The 14 Days Before Symptom Onset, Have You Had Close Contact With A Person Who Is Under Investigation For COVID-19 While That Person Was Ill? No MIGRATION.0301 660142 Information not available 12/31/2022 Are You Deaf Or Do You Have Serious Difficulty Hearing? No MIGRATION.0301 984308 Information not available 12/31/2022 What Type Of Diet Are You Following? REGULAR MIGRATION.0301 118362 Information not available 12/31/2022 Which Illicit Or Recreational Drugs Have You Used? None MIGRATION.0301 343106 Information not available 12/31/2022 What Is The Highest Grade Or Level Of School You Have Completed Or The Highest Degree You Have Received? GT12835-7 MIGRATION.030 603051 Information not available 12/31/2022 Have There Been Any Changes To Your Family Or Social Situation? No MIGRATION.0301 376223 Information not available 12/31/2022 What Is The Fluoride Status Of Your Home? Unknown MIGRATION.0301 997448 Information not available 12/31/2022 Are There Any Guns Present In Your Home? No MIGRATION.0301 252615 Information not available 12/31/2022 Do You Use Insect Repellent Routinely? No MIGRATION.0301 071075 Information not available 12/31/2022 Where Do You Live? SingleLevelHouse With Basement MIGRATION.030 919081 Information not available 12/31/2022 Advance Directive- Providers Has Reviewed Directive And Consents To Follow Them (insert Provider Name With Any Objectives In Notes Field) No MIGRATION.0301 281163 Information not available 12/31/2022 Presence Of Domestic Violence No Information not available 01/18/2025 Guns Present In The Home? Yes LOCKED UP Information not available 01/18/2025 Are You Able To Care For Yourself? Yes Information not available 01/18/2025 Are You Blind Or Do Yo Have Difficulty Seeing? Yes WEARS GLASSES Information not available 01/18/2025 Are You Deaf Or Do You Have Serious Difficulty Hearing? No Information not available 01/18/2025 General Stress Level? Low Information not available 01/18/2025 Live Alone Of With Others? With Others Information not available 01/18/2025 Do You Have A Medical Power Of Licensed Plumber? Yes MIGRATION.0301 700931 Information not available 12/31/2022 What Was The Date Of Your Most Recent Tobacco Screening? 03/07/2024 Information not available 03/07/2024 What Is Your Current Pack Years? 30ormorepackyears [email or web address] Information not available 03/23/2025 Have You Ever Been Counseled For Unhealthy Alcohol Use? No MIGRATION.0301 853498 Information not available 12/31/2022 Do You Have Any Pets? Yes MIGRATION.0301 538637 Information not available 12/31/2022 What Is Your Relationship Status? MIGRATION.0301 972258 Information not available 12/31/2022 Do You Use Your Seat Belt Or Car Seat Routinely? Yes MIGRATION.0301 625367 Information not available 12/31/2022 Do You Have Smoke And Carbon Monoxide Detectors In Your Home? Yes MIGRATION.0301 409845 Information not available 12/31/2022 At What Age Did You Start Smoking Tobacco? 46 [email or web address] Information not available 03/23/2025 Are You Passively Exposed To Smoke? No MIGRATION.0301 799733 Information not available 12/31/2022 Are There Any Smokers In Your House? Yes Self MIGRATION.0301 216850 Information not available 12/31/2022 How Much Tobacco Do You Smoke? 0.25 PPD Cigars MIGRATION.0301 296425 Information not available 12/31/2022 Do You Participate In Social Media? No MIGRATION.0301 829051 Information not available 12/31/2022 Do You Use Sunscreen Routinely? No MIGRATION.0301 716050 Information not available 12/31/2022 Has Tobacco Cessation Counseling Been Provided? No MIGRATION.0301 694952 Information not available 12/31/2022 How Many Years Have You Smoked Tobacco? 30 MIGRATION.0301 118034 Information not available 12/31/2022 Have You Recently Traveled Abroad? No MIGRATION.0301 429277 Information not available 12/31/2022 Do You Have Difficulty Walking Or Climbing Stairs? No MIGRATION.0301 808943 Information not available 12/31/2022 Are You Currently In School? No MIGRATION.0301 008688 Information not available 12/31/2022 Do You Have Any Dietary Restrictions? No MIGRATION.0301 198590 Information not available 12/31/2022 Sex: Male Functional Status Question Answer Note LastModified by Organizat ion Details LastModified Time Do you or have you ever used any other forms of tobacco or nicotine? No MIGRATION.653592 3173 Information not available 12/31/2022 What is your level of alcohol consumption? Occasional MIGRATION.502846 0091 Information not available 12/31/2022 Do you or have you ever used smokeless tobacco? Never used smokeless tobacco MIGRATION.128491 2278 Information not available 12/31/2022 Do you have transportation difficulties? No MIGRATION.769204 9711 Information not available 12/31/2022 Are you able to walk? YESWOREST MIGRATION.790042 0018 Information not available 12/31/2022 Do you have difficulty doing errands alone? No MIGRATION.063235 4292 Information not available 12/31/2022 Are you able to care for yourself? Yes MIGRATION.783579 6880 Information not available 12/31/2022 What is your occupation? Retired MIGRATION.428508 7476 Information not available 12/31/2022 Do you have difficulty dressing or bathing? No MIGRATION.867500 0022 Information not available 12/31/2022 Do you or have you ever used e-cigarettes or vape? Never used electronic cigarettes MIGRATION.444579 0374 Information not available 12/31/2022 What is your exercise level? Moderate MIGRATION.239766 5753 Information not available 12/31/2022 Mental Status Question Answer Note LastModified by Organizat ion Details LastModified Time Do you feel stressed (tense, restless, nervous, or anxious, or unable to sleep at night)? LL2870-5 MIGRATION.79075048 26 Information not available 12/31/2022 Do you have difficulty concentrating, remembering or making decisions? No MIGRATION.24019699 26 Information not available 12/31/2022 Family History Relationship Description Onset Age of this Age Resolved Age Notes LastModified by Organization Details LastModified Time Mother Family history of malignant neoplasm MIGRATION.557 1604863 Not available 12/31/2022 20:06:42 Father Family history of malignant neoplasm MIGRATION.762 2393328 Not available 12/31/2022 20:06:42 Father Diabetes mellitus MIGRATION.057 2782112 Not available 12/31/2022 20:06:42 Father Coronary artery bypass graft MIGRATION.085 3357768 Not available 12/31/2022 20:06:42 Paternal Grandfather Family history of malignant neoplasm MIGRATION.072 5282701 Not available 12/31/2022 20:06:42 Brother Diabetes mellitus MIGRATION.296 0035100 Not available 12/31/2022 20:06:42 Sister Monitoring of pacemaker MIGRATION.667 3193289 Not available 12/31/2022 20:06:42 Medical History Condition Response ARTHRITIS Y Immunizations Vaccine Type Date Status Note Provider Nam e and Address Organization Details Recorded Time Tdap 02/06/2022 completed Not Available [employer] 12/31/2022 20:08:49 Past Encounters Encounter ID Performer Location Encounter Start Date Encounter Closed Date Diagnosis/Indication Diagnosis SNOMED-CT Code Diagnosis ICD10 Code Diagnosis Note [id number] Sher Arndt MD [address] [address] 04/08/2021 00:00:00 04/08/2021 10:44:56 [id number] Sher Arndt MD [address] [address] 04/23/2021 00:00:00 04/23/2021 11:57:20 [id number] Sher Arndt MD [address] [address] 05/08/2021 00:00:00 05/08/2021 15:19:12 [id number] Sher Arndt MD [address] [address] 05/16/2021 00:00:00 05/16/2021 09:22:08 [id number] Per Ziegler MD [facility] [place] [address] [place] [address] 05/23/2021 00:00:00 05/23/2021 10:35:03 [id number] Sher Arndt MD [address] [address] 07/04/2021 00:00:00 07/04/2021 11:18:07 [id number] Per Ziegler MD Carlos_[facility] [place] [address] [place] [address] 07/18/2021 00:00:00 07/18/2021 15:50:23 [id number] MD KIRSTIE Langsotn_ABIMAEL [facility] [place] [address] [place] [address] 08/22/2021 00:00:00 08/22/2021 14:24:57 [id number] Sher Arndt MD S_[facility] [address] [place] [address] 01/02/2022 00:00:00 01/02/2022 15:55:07 [id number] Sher Arndt MD S_[facility]John [facility] [address] [place] [address] 02/06/2022 00:00:00 02/06/2022 11:04:24 [id number] Sher Arndt MD S[facility] [address] [place] [address] 02/27/2022 00:00:00 02/27/2022 10:42:16 [id number] MD KIRSTIE Gutierrez_[facility]G [facility] [place] [address] [place] [address] 03/11/2022 00:00:00 03/11/2022 15:16:45 [id number] Laurent Alejandra MD S[facility] [place] [address] [place] [address] 04/08/2022 00:00:00 04/08/2022 14:47:59 [id number] MD KIRSTIE Gutierrez_[facility] [place] [address] [place] [address] 05/06/2022 00:00:00 05/06/2022 15:19:47 [id number] Laurent Alejandra MD S[facility] [place] [address] [place] [address] 05/15/2022 00:00:00 05/15/2022 09:25:35 [id number] Sher Arndt MD [address] [address] 05/29/2022 00:00:00 05/29/2022 10:50:32 [id number] Sher Arndt MD [address] [address] 09/11/2022 00:00:00 09/11/2022 10:24:44 [id number] Sher Arndt MD [address] [address] 02/09/2023 08:49:15 02/09/2023 09:35:39 Hypertensive disorder 78173073 I10 Hyperlipidemia 99516581 E78.5 Seizure disorder 3956048 02 G40.909 Smoker 40014086 F17.200 Type 2 ynuior betes mellitus without complication 850302057 E11.9 Vitamin B1 2 deficiency (non anemic) 69155961 E53.8 Vitamin D deficiency 347 72506 E55.9 Screening for malignant neoplasm of prostate 340662674 Z12.5 Family his tory of Cardiovascular disease 845169939 Z82.49 [id number] Sher Arndt MD [address] [address] 02/24/2023 09:20:06 02/24/2023 09:52:49 Hypertensive disorder 29939304 I10 Hyperlipidemia 31228860 E78.5 Seizure disorder 6236612 02 G40.909 Smoker 36000505 F17.200 Type 2 yunior betes mellitus without complication 028138982 E11.9 Vitamin B1 2 deficiency (non anemic) 05280950 E53.8 resolved Vitamin D deficiency 347 17747 E55.9 improved Hypertriglyceridemia 302 743687 E78.2 [id number] Sher Arndt MD [address] [address] 05/26/2023 09:16:27 05/26/2023 09:44:19 Hypertensive disorder 20023051 I10 Hyperlipidemia 00317871 E78.5 Seizure disorder 9425452 02 G40.909 Smoker 52813677 F17.200 Type 2 yunior betes mellitus without complication 360350227 E11.9 Vitamin B1 2 deficiency (non anemic) 43016717 E53.8 resolved Vitamin D deficiency 347 42746 E55.9 improved Hypertriglyceridemia 302 469679 E78.2 Hospital i npatient stay within past 30 days 4618016234 106 Z76.89 Atrial fibrillation 4943 6004 I48.91 Chronic ki dney disease stage 3 218236530 N18.30 [id number] Sher Arndt MD [address] [address] 02/18/2024 09:08:44 02/18/2024 09:42:56 Hypertensive disorder 87469614 I10 Hyperlipidemia 52189164 E78.5 Seizure disorder 5456486 02 G40.909 Smoker 51536458 F17.200 Type 2 yunior betes mellitus without complication 448576824 E11.9 Vitamin B1 2 deficiency (non anemic) 59070521 E53.8 resolved Vitamin D deficiency 347 49238 E55.9 improved Hypertriglyceridemia 302 564142 E78.2 Atrial fibrillation 4943 6004 I48.91 Chronic ki dney disease stage 3 115574171 N18.30 Screening for malignant neoplasm of prostate 606621609 Z12.5 [id number] Sher Arndt MD [address] [address] 03/07/2024 15:03:11 03/07/2024 16:55:17 Adult health examination 095701914 Z00.00 Screening for disorder 735582484 Z13.9 Hypertensive disorder 38 069359 I10 Hyperlipidemia 98986397 E78.5 Seizure disorder 2473501 02 G40.909 Smoker 65140337 F17.200 Type 2 yunior betes mellitus without complication 620721113 E11.9 Vitamin B1 2 deficiency (non anemic) 45645100 E53.8 resolved Vitamin D deficiency 347 36578 E55.9 Hypertriglyceridemia 302 899234 E78.2 Atrial fibrillation 4943 6004 I48.91 Chronic ki dney disease stage 3 939306878 N18.30 [id number] Sher Arndt MD [address] [address] 12/15/2024 09:59:48 12/15/2024 10:53:34 Hypertensive disorder 95773569 I10 Hyperlipidemia 08926886 E78.5 Seizure disorder 5661942 02 G40.909 Type 2 yunior betes mellitus without complication 111124203 E11.9 Vitamin B1 2 deficiency (non anemic) 13976262 E53.8 resolved Vitamin D deficiency 347 10796 E55.9 Hypertriglyceridemia 302 808666 E78.2 Atrial fibrillation 4943 6004 I48.91 Chronic ki dney disease stage 3 384454446 N18.30 Cigar smoker 12938198 Z7 2.0 [id number] Sher Arndt MD [address] [address] 01/04/2025 09:09:36 01/04/2025 11:24:56 [id number] Sher Arndt MD [address] [address] 01/18/2025 10:25:00 01/18/2025 12:43:00 Type 2 diabetes mellitus without complication 799678992 E11.9 Hypertensive disorder 38 937937 I10 Hyperlipidemia 36133442 E78.5 Seizure disorder 4508938 02 G40.909 Vitamin B1 2 deficiency (non anemic) 20878733 E53.8 resolved Vitamin D deficiency 347 77798 E55.9 Hypertriglyceridemia 302 902676 E78.2 Atrial fibrillation 4943 6004 I48.91 Chronic ki dney disease stage 3 951592907 N18.30 Cigar smoker 16023413 Z7 2.0 [id number] Sher Arndt MD [address] [address] 03/23/2025 09:07:05 03/23/2025 09:38:50 Hyperlipidemia 65809758 E78.5 Hypertriglyceridemia 302 372505 E78.2 Type 2 yunior betes mellitus without complication 775994883 E11.9 Hypertensive disorder 38 682121 I10 Seizure disorder 6851432 02 G40.909 Vitamin B1 2 deficiency (non anemic) 44011942 E53.8 Vitamin D deficiency 347 46412 E55.9 Atrial fibrillation 4943 6004 I48.91 Chronic ki dney disease stage 3 966918114 N18.30 Cigar smoker 48989638 Z7 2.0 Screening for malignant neoplasm of prostate 276120779 Z12.5 Screening colonoscopy 44 6251126 Z12.11 Health Concerns Section Related Observation LastModified by Organization Detai ls LastModified Time None Recorded Concern Status LastModified by Organization Details LastModified Time None Recorded Advance Directives Directive Y: Payers Encounter Date Sequence Insurance Name Policy Number Policy Candelaria Covered Member ID Candelaria Member ID Guarantor Name 03/07/2024 1 [facility] (MEDICARE REPLACEMENT/A DVANTAGE - HMO) [id number] Solis Arteaga [id number] Solis Arteaga 12/15/2024 1 [facility] (MEDICARE REPLACEMENT/A DVANTAGE - HMO) [id number] Solis Arteaga [id number] Solis Arteaga 01/04/2025 1 [facility] (MEDICARE REPLACEMENT/A DVANTAGE - HMO) [id number] Solis Arteaga [id number] Solis Arteaga 01/18/2025 1 [facility] (MEDICARE REPLACEMENT/A DVANTAGE - HMO) [id number] Solis Arteaga [id number] Solis Arteaga 03/23/2025 1 [facility] (MEDICARE REPLACEMENT/A DVANTAGE - HMO) [id number] Solis Arteaga [id number] Solis Arteaga Notes Date Note Type Note Provider Name and Address Organization Details Recorded Time 03/07/2024 text/html Pt is here for f /u on his annual labs and MAWV. Doing overall well and denies any new concerns. Pt is also due for the MAWV and wants to get it done today. Denies any mood/sleep concerns. Overall feeling much better now. Denies any mood swings/SI/HI. Pt is f/u with Cardio for his A fib and is doing well with it.Pt is f/u with Ortho for his Lt shoulder pain and got surgery with them and is done with PT too.Pt is seeing eye doctor at [place] annually and is doing well.Pt is f/u with Uro at [place] for his Lt kidney stones.Pt is f/u with Neuro at [facility] for his seizure disorder and is doing well with it. Sher Arndt MD [address] [address], [place], [address], [facility] [employer] [facility] 03/07/2024 16:51:05 12/15/2024 text/html ACV + FUV: We got a paperwork from pt's insurance with his signature; but pt says he never got contacted by them and he has not authorized for any information to be filled for him. Last visit in 03/25. Pt is here for f/u on his meds and chronic conditions. Doing overall well. Denies any problem with meds. Denies any mood/sleep concerns. Overall feeling much better now. Denies any mood swings/SI/HI. Pt is f/u with Cardio for his A fib and is doing well with it.Pt is f/u with Ortho for his Lt shoulder pain and got surgery with them and is done with PT too.Pt is seeing eye doctor at [place] annually and is doing well.Pt is f/u with Uro at [place] for his Lt kidney stones.Pt is f/u with Neuro at [facility] for his seizure disorder and is doing well with it. Sher Arndt MD [address] [address], [place], [address], [facility] [employer] 12/15/2024 10:51:46 01/18/2025 text/html Pt is here for f /u on his labs, meds and chronic conditions. Doing overall well. Denies any problem with meds. Denies any new concern. Pt has not eaten anything today yet. Denies any mood/sleep concerns. Overall feeling much better now. Denies any mood swings/SI/HI. Pt is f/u with Cardio for his A fib and is doing well with it.Pt is f/u with Ortho for his Lt shoulder pain and got surgery with them and is done with PT too.Pt is seeing eye doctor at [place] annually and is doing well.Pt is f/u with Uro at [place] for his Lt kidney stones.Pt is f/u with Neuro at [facility] for his seizure disorder and is doing well with it. Sher Arndt MD [address], [place], [address], [employer] [facility] [employer] 01/18/2025 10:50:53 03/23/2025 text/html Pt is here for h is annual exam. Doing overall well. Denies any problem with meds. Denies any new concern. Denies any mood/sleep concerns. Overall feeling much better now. Denies any mood swings/SI/HI. Pt is f/u with Cardio for his A fib and is doing well with it.Pt is f/u with Ortho for his Lt shoulder pain and got surgery with them and is done with PT too.Pt is seeing eye doctor at [place] annually and is doing well.Pt is f/u with Uro at [place] for his Lt kidney stones.Pt is f/u with Neuro at [facility] for his seizure disorder and is doing well with it. Sher Arndt MD [address], [place], [address], [employer] 03/23/2025 09:35:52
--- OUTSIDE RECORDS SUMMARY | 2025-03-31 10:11 | XMS_ITS | CONTINUITY OF CARE DOCUMENT ---
Author Name emelyharmony emelyharmony Address Unknown Organization [facility] Address [address] [place] [address] Phone [phone] Care Team Providers Care Nurse Plastics Name Role Phone Maria A Tijerina MD Unavailable DEREK NEFF MD Unavailable DEREK NEFF MD Unavailable PROBLEMS Condition Status Date Provider Notes Palpitations active Maria A Tijerina MD Smoker, cigars active Radha Malagon Paroxysmal atrial fibrillation active Ashwini Malagon Diabetes mellitus, type 2 active Rosalva Saúl timiglia [employer] Hyperlipidemia active Rosalva Ventimiglia FN P Hypertension active Rosalva Ventimiglia [employer] Dizziness active Rosalva Ventimiglia [employer] Cardiology examination active Rosalva Ventim iglia [employer] ENCOUNTERS Date Type Provider Location Encounter Diag nosis 05/22 - 05/22 In-person encounter Office Visit Maria A Tijerina MD [facility] 04/23 - 04/27 In-person encounter Office Visit Maria A Tijerina MD [facility] 04/07 - 04/07 In-person encounter Office Visit Maria A Tijerina MD [facility] Palpitations 03/19 - 03/25 In-person encounter Office Visit Maria A Tijerina MD [facility] Paroxysmal atrial fibrillationSmoker, ci gars 02/26 - 03/03 In-person encounter Office Visit Maria A Tijerina MD [facility] Cardiology examinationDizzinessHypertensionHyperlipidemiaDiabe kenneth mellitus, type 2 VITAL SIGNS Date Observation Value Provider Body Mass Index (Ratio) 25.68 kg/m2 Taiwo Tijerina MD blood pressure, cuff size large An hunter Apodaca blood pressure, diastolic 73 mm[Hg] An hunter Apodaca blood pressure, systolic 98 mm[Hg] Becca Apodaca oxygen saturation, oximetry 99 % Olamide Apodaca pulse rate 53 /min Olamide Apodaca weight E&M 164 [lb_av] Olamide Apodaca height E&M 67 [in_i] Olamide Apodaca Body Mass Index (Ratio) 25.68 kg/m2 Taiwo Tijerina MD blood pressure, diastolic 93 mm[Hg] Delores nkLog blood pressure, systolic 119 mm[Hg] Monik og oxygen saturation, oximetry 97 % Megha Almeida pulse rate 63 /min Megha Almeida blood pressure, diastolic 93 mm[Hg] evaristo Almeida blood pressure, systolic 119 mm[Hg] She rrcherelle Almeida respiratory rate E&M 20 /min Megha Almeida weight E&M 164 [lb_av] Megha Almeida height E&M 67 [in_i] Megha Almeida Body Mass Index (Ratio) 26.31 kg/m2 Taiwo Tijerina MD blood pressure, diastolic 90 mm[Hg] Patience Almeida blood pressure, systolic 117 mm[Hg] She domenica Almeida pulse rate 64 /min Megha Almeida respiratory rate E&M 20 /min Megha Almeida oxygen saturation, oximetry 98 % Megha Almeida blood pressure, cuff size regular evaristo Almeida weight E&M 168 [lb_av] Megha Almeida height E&M 67 [in_i] Megha Almeida Body Mass Index (Ratio) 26.15 kg/m2 Rachel Fostererika pulse rate 81 /min Megha Almeida blood pressure, cuff size regular evaristo Almeida blood pressure, diastolic 82 mm[Hg] evaristo Almeida blood pressure, systolic 129 mm[Hg] She domenica Almeida oxygen saturation, oximetry 98 % Megha Almeida respiratory rate E&M 20 /min Megha Almeida weight E&M 167 [lb_av] Megha Almeida height E&M 67 [in_i] Megha Almeida Body Mass Index (Ratio) 26.78 kg/m2 Taiwo Tijerina MD blood pressure, cuff size regular Ke rri Julissa blood pressure, diastolic 64 mm[Hg] Ke rri Julissa blood pressure, systolic 106 mm[Hg] Hernesto Costa oxygen saturation, oximetry 96 % Ewelina Costa respiratory rate E&M 14 /min Ewelina hopkins pulse rate 74 /min Ewelina thomaser weight E&M 171 [lb_av] Ewelina thomaser height E&M 67 [in_i] Ewelina nunes ALLERGIES Allergy Name Onset Date Reaction Criticality Status PCN High Criticality active HISTORY OF MEDICATION USE Medication Status Instructions Dates Provider Indications Com ments metoprolol tartrate 25 mg tablet active Take 1/2 tablet by mouth twice a day LAST FILL TILL SEEN IN OFFICE Ewelina Costa metoprolol tartrate 25 mg tablet completed TAKE 1/2 TABLET BY MOUTH TWICE DAILY - Ewelina Costa Eliquis 5 mg tablet active TAKE 1 TABLET BY MOUTH TWICE DAILY [facility] flecainide 100 mg tablet active TAKE 1 TABLET BY MOUTH EVERY 12 HOURS Olamide Apodaca metformin 500 mg tablet extended release 24 hr active TAKE 2 TABLETS BY MOUTH DAILY AFTER MEALS Aye Castillo NP cyanocobalamin (vitamin B-12) 500 mcg tablet active Megha Almeida Fish Oil unspecified unspecified active Megha Almeida Eliquis 5 mg tablet completed Take 1 tablet by mouth twice a day - Balaji metoprolol tartrate 25 mg tablet completed Take 1/2 tablet by mouth twice a day 1 TAB IN AM1/2 TAB IN PM - tamsulosin 0.4 mg capsule active TAKE 1 CAPSULE BY MOUTH EVERY DAY AT BEDTIME Ewelina Costa lisinopril 10 mg tablet active TAKE 1 TABLET BY MOUTH EVERY DAY DIRECTED Rosalva MCKOY atorvastatin 20 mg tablet active TAKE 1 TABLET BY MOUTH EVERY DAY AT BEDTIME Ewelina Costa aspirin 81 mg tablet,delayed release (DR/EC) completed Take 1 tablet by mouth once a day - Aye Castillo NP SOCIAL HISTORY Date Observation Value Provider social history E&M S moking History: Marianne errol currently smokes every day. P errol has been counseled to quit. Maria A Tijerina MD social history reviewed E&M revi ewed - no changes required Maria A Tijerina MD smoking/tobacco cess ation, patient education and counseling yes Olamide Apodaca cigars, number smoke d per week 1 a dAY Olamide Apodaca cigar use yes Olamide Apodaca smoking status Current every da y smoker Olamide Apodaca cigars, number smoke d per week 1 a dAY Megha Almeida cigar use yes Megha Almeida smoking status Current every da y smoker Megha Almeida social history E&M S moking History: Marianne norton is a former smoker. Maria A Tijerina MD social history reviewed E&M revi ewed - no changes required Maria A Tijerina MD cigar use yes Megha Almeida smoking status Former smoker Megha moralez number of grandchildren Maria A Tijerina MD social history E&M S moking History: Marianne norton currently smokes every day. Marianne norton has been counseled to quit. Maria A Tijerina MD smoking/tobacco cess ation, patient education and counseling yes Maria A Tijerina MD social history reviewed E&M revi ewed - no changes required Maria A Tijerina MD cigars, number smoke d per week 2 a day Megha Almeida cigar use yes Megha Almeida smoking status Current every da y smoker Megha Almeida drug use no Rosalva Ventimig rancho [facility] alcohol use, average drinks per day social Rosalva Ventimiglia [facility] alcohol use yes Rosalva Ventimig rancho [facility] cigar use yes Rosalva Ventimig rancho [facility] smoking status Current some day smoker Elmer Costa [employer] Payer name Policy type / Coverage type Bock red green party ID [employer] MEDICARE ADVANTAGE HMO-POS HMO [id number] ADVANCE DIRECTIVES Name Date DISCUSSED - NO DECISION MADE TREATMENT PLAN Date Name Performer [id number],C,On statins an d fish oil. Maria A Tijerina MD [id number],C,On metformin. Maria A Tijerina MD [id number],C,B P is on the lower side. He has been advised to reduce his lisinopril to 10mg daily. He will continue to monitor his BP. Maria A Tijerian MD [id number],C,H e had recurrence of afib with syncope. Admitted to [place] and started on flecanide 100mg. He is in SR today, but feels tired and fatigued. Maria A Tijerina MD [id number],C,resolved. str ess test negative Aye Castillo NP [id number],C, H is updated medication list for this problem includes: Atorvastatin 20 Mg Tablet (Atorvastatin) ..... Take 1 tablet by mouth every day at bedtime Aye Castillo NP [id number],C,E KG today SR The following medications were removed from the medication list: Aspirin 81 Mg Tablet,delayed Release (dr/ec) (Aspirin) ..... Take 1 tablet by mouth once a day His updated medication list for this problem includes: Metoprolol Tartrate 25 Mg Tablet (Metoprolol tartrate) ..... Take 1/2 tablet by mouth twice a day 1 tab in am1/2 tab in pm Lisinopril 10 Mg Tablet (Lisinopril) ..... Take 1 tablet by mouth every day as directed Aye Castillo NP [id number],C,c ontinus to smoke 1 cigar per day. encouraged cessation Aye Castillo NP [id number],C,p alpitations continue to improve. Stress test no evidence of ischemia. EF 57% 04/07/23 Had an episode of palpitations with associated dizziness, lightheadedness, and sweating. He also had lower back pain and tingling down both of his arms. Today, he feels improved. Likely etiology is either afib with RVR or SVT. His stress test is next week. At present, will increase metoprolol to 1 tablet in the morning and 1/2 tablet in the evening. Pt has been reassured. The following medications were removed from the medication list: Aspirin 81 Mg Tablet,delayed Release (dr/ec) (Aspirin) ..... Take 1 tablet by mouth once a day His updated medication list for this problem includes: Metoprolol Tartrate 25 Mg Tablet (Metoprolol tartrate) ..... Take 1 tab in am 1/2 tab in pm Lisinopril 10 Mg Tablet (Lisinopril) ..... Take 1 tablet by mouth every day as directed Aye Castillo NP [id number],C, H gb A1C of 6.3% on recent labs. Management as per primary team Maria A Tijerina MD [id number],C, O n statin therapy. LDL is at goal. Maria A Tijerina MD [id number],C,B lood pressure control is satisfactory. Maria A Tijerina MD [id number],C,A ssociated with palpitations. Will f/u post stress test. Maria A Tijerina MD [id number],C,H ad an episode of palpitations with associated dizziness, lightheadedness, and sweating. He also had lower back pain and tingling down both of his arms. Today, he feels improved. Likely etiology is either afib with RVR or SVT. His stress test is next week. At present, will increase metoprolol to 1 tablet in the morning and 1/2 tablet in the evening. Pt has been reassured. Maria A Tijerina MD [id number],C, B lood pressure control is satisfactory. Maria A Tijerina MD [id number],N, P aroxysmal AF with RVR noted on recent telesentry monitor, which is likely the etiology of his intermittent symptoms of dizziness. Chads-vasc score his 3. The need for anticoagulation was discussed with the patient for CVA prophylaxis. He is agreeable. Will start eliquis 5mg BID. Will also start metoprolol tartrate 12.5mg BID for rate control. His LVF was normal on recent echocardiogram. He will need an exercise cardiolite stress test to evaluate for ischemia. Maria A Tijerina MD [id number],C, O n statin therapy. LDL is at goal. Maria A Tijerina MD [id number],C, T he Patient was reencouraged to stop smoking. Maria A Tijerina MD [id number],S, H gb A1C of 6.3% on recent labs. Management as per primary team Maria A Tijerina MD [id number],C,H gb A1C of 6.3% on recent labs. Management as per primary team Maria A Tijerina MD [id number],C,O n statin therapy. LDL is at goal. Will monitor H is updated medication list for this problem includes: Atorvastatin 20 Mg Tablet (Atorvastatin) ..... Take 1 tablet by mouth every day at bedtime [facility] [id number],C,B P 106/64 today. Will lower BP medication. Monitor as micro albumin elevated at 80.1. H is updated medication list for this problem includes: Lisinopril 10 Mg Tablet (Lisinopril) ..... Take 1 tablet by mouth every day as directed Aspirin 81 Mg Tablet,delayed Release (dr/ec) (Aspirin) ..... Take 1 tablet by mouth once a day [facility] [id number],C,E tiology unclear at this time. No acute EKG findings. No orthostatic changes on exam today. His BP is however, on the lower side at 106/64. Concern may be medication induced so will lower his lisinopril dose to 10mg a day. We will also do echo to r/o any LV dysfunction or valvular abnormalities. Will plan tele to r/o any underlying arrhythmia. Will do carotids to r/o stenosis or subclavian steal. Will f/u post testing or sooner if needed. O rders: 9 9204 MOD 45-59 min (CPT-31437) M onitor - Telemetry (Mobile Cardiac) (CPT-82718) C omplete Echo (CPT-11287) C arotid Duplex Bilateral (CPT-83742) Rosalva Valdovinos [employer] Cardiology:On statins and fish o il. Maria A Tijerina MD Cardiology:On metformin. Manuel Tijerina MD Cardiology:BP is on the lower side. He has been advised to reduce his lisinopril to 10mg daily. He will continue to monitor his BP. Maria A Tijerina MD Cardiology:He had re currence of afib with syncope. Admitted to [place] and started on flecanide 100mg. He is in SR today, but feels tired and fatigued. Maria A Tijerina MD Cardiology:resolved. stress test negative Aye Castillo NP Cardiology: H is updated medication list for this problem includes: Atorvastatin 20 Mg Tablet (Atorvastatin) ..... Take 1 tablet by mouth every day at bedtime Aye Castillo NP Cardiology:EKG today SR The following medications were removed from the medication list: Aspirin 81 Mg Tablet,delayed Release (dr/ec) (Aspirin) ..... Take 1 tablet by mouth once a day H is updated medication list for this problem includes: Metoprolol Tartrate 25 Mg Tablet (Metoprolol tartrate) ..... Take 1/2 tablet by mouth twice a day 1 tab in am1/2 tab in pm Lisinopril 10 Mg Tablet (Lisinopril) ..... Take 1 tablet by mouth every day as directed Aye Castillo NP Cardiology:continus to smoke 1 cigar per day. encouraged cessation Aye aCstillo NP Cardiology:palpitati ons continue to improve. Stress test no evidence of ischemia. EF 57% 04/07/23 Had an episode of palpitations with associated dizziness, lightheadedness, and sweating. He also had lower back pain and tingling down both of his arms. Today, he feels improved. Likely etiology is either afib with RVR or SVT. His stress test is next week. At present, will increase metoprolol to 1 tablet in the morning and 1/2 tablet in the evening. Pt has been reassured. The following medications were removed from the medication list: Aspirin 81 Mg Tablet,delayed Release (dr/ec) (Aspirin) ..... Take 1 tablet by mouth once a day His updated medication list for this problem includes: Metoprolol Tartrate 25 Mg Tablet (Metoprolol tartrate) ..... Take 1 tab in am 1/2 tab in pm Lisinopril 10 Mg Tablet (Lisinopril) ..... Take 1 tablet by mouth every day as directed Aye Castillo NP Cardiology: H gb A1C of 6.3% on recent labs. Management as per primary team Maria A Tijerina MD Cardiology: O n statin therapy. LDL is at goal. Mraia A Tijerina MD Cardiology:Blood pressure contro l is satisfactory. Maria A Tijerina MD Cardiology:Associate d with palpitations. Will f/u post stress test. Maria A Tijerina MD Cardiology:Had an ep isode of palpitations with associated dizziness, lightheadedness, and sweating. He also had lower back pain and tingling down both of his arms. Today, he feels improved. Likely etiology is either afib with RVR or SVT. His stress test is next week. At present, will increase metoprolol to 1 tablet in the morning and 1/2 tablet in the evening. Pt has been reassured. Maria A Tijerina MD Cardiology: B lood pressure control is satisfactory. Maria A Tijerina MD Cardiology: P aroxysmal AF with RVR noted on recent telesentry monitor, which is likely the etiology of his intermittent symptoms of dizziness. Chads-vasc score his 3. The need for anticoagulation was discussed with the patient for CVA prophylaxis. He is agreeable. Will start eliquis 5mg BID. Will also start metoprolol tartrate 12.5mg BID for rate control. His LVF was normal on recent echocardiogram. He will need an exercise cardiolite stress test to evaluate for ischemia. Maria A Tijerina MD Cardiology: O n statin therapy. LDL is at goal. Maria A Tijerina MD Cardiology: T he Patient was reencouraged to stop smoking. Maria A Tijerina MD Cardiology: H gb A1C of 6.3% on recent labs. Management as per primary team Maria A Tijerina MD Cardiology:Hgb A1C o f 6.3% on recent labs. Management as per primary team Maria A Tijerina MD Cardiology:On statin therapy. LDL is at goal. Will monitor H is updated medication list for this problem includes: Atorvastatin 20 Mg Tablet (Atorvastatin) ..... Take 1 tablet by mouth every day at bedtime Rosalvaalessia Valdovinos [facility] Cardiology:BP 106/64 today. Will lower BP medication. Monitor as micro albumin elevated at 80.1. H is updated medication list for this problem includes: Lisinopril 10 Mg Tablet (Lisinopril) ..... Take 1 tablet by mouth every day as directed Aspirin 81 Mg Tablet,delayed Release (dr/ec) (Aspirin) ..... Take 1 tablet by mouth once a day Rosalvaalessia Valdovinos [facility] Cardiology:Etiology unclear at this time. No acute EKG findings. No orthostatic changes on exam today. His BP is however, on the lower side at 106/64. Concern may be medication induced so will lower his lisinopril dose to 10mg a day. We will also do echo to r/o any LV dysfunction or valvular abnormalities. Will plan tele to r/o any underlying arrhythmia. Will do carotids to r/o stenosis or subclavian steal. Will f/u post testing or sooner if needed. O rders: 9 9204 MOD 45-59 min (CPT-17225) M onitor - Telemetry (Mobile Cardiac) (CPT-95084) C omplete Echo (CPT-83959) C arotid Duplex Bilateral (CPT-25330) Rosalvaalessia Carranzabrandiesj [facility] Date Name EKG Stress Exercise Card iolite Carotid Duplex Bilat eral Complete Echo Monitor - Telemetry (Mobile Cardiac) HISTORY OF PROCEDURES Procedure Date Procedure Name Provider Procedure Notes S tatus Schedule Followup Maria A Tijerina MD [address] Shanon Tijerina. completed EKG Maria A Tijerina MD complet ed EKG Maria A Tijerina MD complet ed EKG Maria A Tijerina MD complet ed EKG Maria A Tijerina MD complet ed
== END 2025-03-31 09:58 | disposition home or self-care (01) ==
PROVIDERS: PCP Family Medicine; Visit Provider Family Medicine
DX: Z12.2 Encounter for screening for malignant neoplasm of respiratory organs (principal); F17.210 Nicotine dependence, cigarettes, uncomplicated
CPT/HCPCS: 71271